=== PATIENT | male | born 1960 | race Caucasian/White ===

== ENCOUNTER 2019-12-13 07:59 | Outpatient (CLI) | payer MEDICARE, SELFPAY ==
--- NOTE | 2019-12-13 08:00 | IR_ITS ---
WS: [id number] MYELOGRAM CERVICAL SPINE AND LUMBAR CLINICAL INFORMATION: Neck pain COMPARISON: None. TECHNIQUE: The procedure, including risks, benefits, and complications, were discussed with the patie nt who agreed to proceed. A timeout was performed to confirm correct patient, procedure, and site. Using sterile technique, the patient was prepped and draped in the usual sterile fashion. After admin istration of local anesthesia using 1% preservative-free lidocaine and using fluoroscopic guidance, a 22-gauge spinal needle was advanced into the subarachnoid space at the left L4-5 level. Subsequently 13 cc of Omnipaque 300 was administered into the thecal sac. The needle was removed and hemostasis w as achieved. Subsequently the table was tilted down and contrast flowed freely into the cervical spin e. Spot fluoroscopic images were obtained. FLUOROSCOPIC TIME: 1.0 minutes. Spot fluoroscopic images demonstrate spinal stimulator. Straightening of the normal cervical lordosis . Mild spondylitic changes with disc space narrowing worse at C5-C6 and C6-C7. Slight retrolisthesis C5 on C6. No instability on flexion-extension. Normal lumbar alignment on the neutral view. No instability on flexion-extension. Disc space heights and vertebral body heights well-preserved. Spinal stimulator leads appear intact. Aortic calcificatio n. Mild chronic anterior wedging at T12. Please see CT myelogram report for additional detail. IR/IR myelogram spine cervic/lumb IMPRESSION: 1. Uncomplicated cervical lumbar myelogram L4-5. 2. No instability on flexion-extension in the cervical or lumbar spine. 3. Mild spondylitic changes cervical spine with disc space narrowing worse at C5-6. Slight retrolisthesis C5 on C6 measuring 2.6 mm. 4. Spinal stimulator pack in the left lower back with visualized stimulator le ads intact.
[2019-12-13] MEDS: iohexol 300 mg/mL 50 mL Btl INTRATHECA (09:29)
--- NOTE | 2019-12-13 10:00 | CT_ITS ---
WS: [id number] CT CERVICAL MYELOGRAM TECHNIQUE: CT of the cervical spine coronal and sagittal reformatted images post intrathecal administ ration of contrast. CLINICAL INFORMATION: Neck pain COMPARISON: CT cervical July 31, 2019 DLP: 1533.[address] scans at [facility] use at least one of these dose optimization techniques: automat ed exposure control; mA and/or kV adjustment per patient size (includes targeted exams where dose is matched to clinical indication); or iterative reconstruction. FINDINGS: Straightening of the normal cervical lordosis with mild spondylitic changes. Disc osteophyte complexe s worse at C4-C5 and C5-C6. C2-C3: Mild right and no significant left foraminal narrowing. Spinal canal is patent. C3-C4:Tiny central disc protrusion. Mild/moderate facet arthropathy. Mild disc bilateral foraminal na rrowing. Mild to moderate facet arthropathy. Spinal canal is patent. C4-C5: Central disc osteophyte protrusion with contact of the cervical cord and mild central canal st enosis. Mild left foraminal narrowing. Mild to moderate facet arthropathy. C5-C6: Disc osteophyte complex with endplate ridging. Mild central canal stenosis. Small central disc osteophyte protrusion. Moderate right and mild left bony foraminal narrowing. Moderate facet arthrop athy. C6-C7: Tiny left pericentral disc osteophyte protrusion. Spinal canal is patent. Mild left and no sig nificant right foraminal narrowing. Mild facet arthropathy. C7-T1: No significant disc bulging. Spinal canal and foramen are patent. Visualized posterior fossa structures: Normal. CT/CT cervical spine w con [id number] IMPRESSION: 1. Straightening of the normal cervical lordosis with mild spondylitic changes . Disc space narrowing worse at C5-C6. 2. Central disc osteophyte protrusion C4-C5 and C5-C6 with mild central canal stenosis and slight contact of the cervical cord. 3. Moderate bony foraminal narrowing worse at right C5-C6 4. Mild to moderate bony foraminal narrowing worse at right C3-C4, left C5-C6, and left C6-C7.
--- NOTE | 2019-12-13 10:30 | CT_ITS ---
WS: [id number] CT LUMBAR SPINE TECHNIQUE: Contrast-enhanced CT of the lumbar spine with coronal and sagittal reformatted images. CLINICAL INFORMATION: low back pain COMPARISON: None. DLP: 2083.[address] scans at [facility] use at least one of these dose optimization techniques: automat ed exposure control; mA and/or kV adjustment per patient size (includes targeted exams where dose is matched to clinical indication); or iterative reconstruction. FINDINGS: Normal lumbar alignment. No acute compression. No high-grade central canal stenosis. Disc space narro wing worse L5-S1. L1-L2: Normal. L2-L3: No significant disc bulging. Spinal canal and foramen are patent. L3-L4: Minimal annular bulging. Small left foraminal protrusion encroaches on the exiting left L3 ner ve root. Mild left foraminal narrowing. Mild facet arthropathy. L4-L5: Mild annular bulging with osteophytic ridging. Mild left and no significant right foraminal na rrowing. Mild facet arthropathy. L5-S1: Small central disc osteophyte complex slightly encroaches on the right S1 nerve root. Spinal c anal is patent. Mild right and no central left foraminal narrowing. Mild facet arthropathy. Adrenal glands are normal. Moderate aortic atheromatous disease. Shotty periaortic and retroperitonea l lymph nodes. CT/CT lumbar spine w con [id number] IMPRESSION: 1. Normal lumbar alignment. No acute compression. No high-grade central canal stenosis. 2. Small right pericentral disc osteophyte complex L5-S1 encroaches on the rig ht S1 nerve root. Mild right L5-S1 foraminal narrowing encroaches on the exitin g right L5 nerve root. 3. Small left foraminal protrusion L3-4 with mild left foraminal narrowing. 4. Mild left L4-5 foraminal narrowing. 5. Moderate aortic atheromatous disease.
== END 2019-12-13 08:00 | disposition home or self-care (01) ==
LOC: RADWPI 08:04
PROVIDERS: Family Provider Family Medicine; PCP Family Medicine; Visit Provider Licensed Practical Nurse
DX: M54.2 Cervicalgia (principal); M25.78 Osteophyte, vertebrae; M51.26 Other intervertebral disc displacement, lumbar region; I70.0 Atherosclerosis of aorta
CPT/HCPCS: 62305; 72040; 72120; 72126; 72132; J2001; Q9967

== ENCOUNTER 2020-01-11 09:29 | Day surgery (SDC) | payer MEDICARE, SELFPAY ==
[2020-01-10 13:14] VITALS: BMI 25.7
[2020-01-11] VITALS (11 sets, daily range): BP systolic 141–166; BP diastolic 54–90; PULSE 47–68; RESP 16–20; TEMP 36.3–37.2; O2SAT 96–100
--- NOTE | 2020-01-11 09:53 | W.PM.OPSUD ---
Surgery/Procedure H&P Update DATE OF PROCEDURE: January 11, 2020 DATE H&P PERFORMED: 12/29/19 H&P UPDATE INFORMATION: I have reviewed H&P completed within last 30 days, H&P to be scanned into chart and H&P is in [facility] on date indicated PREOP DIAGNOSIS: Intervertebral disc disorder with radiculopathy, lumbar region PRIMARY INDICATION FOR PROCEDURE: Pain PLANNED PROCEDURE: Operation Date: 01/11/20 10:50 Proposed Procedures Replacement of subcutaneous spinal cord stimulation pulse generator.
--- NOTE | 2020-01-11 10:04 | ANES.PREANE2 ---
Pre-Anesthetic Assessment Pre-Anesthetic Assessment: Height/Weight: Height 1.88 m Weight 90.718 kg Temp Pulse Resp BP Pulse Ox 99.0 F 68 18 142/85 98 01/11/20 09:42 01/11/20 09:42 01/11/20 09:42 01/11/20 09:42 01/11/20 09:42 Preop Diagnosis: Intervertebral disc disorder with radiculopathy, lumbar region Proposed Procedure: Operation Date: 01/11/20 10:50 Proposed Procedures p Dorsal Column Stimulator Revision/[id number] M51.16 generator replacement(Not Applicable) - Matteo Figueroa MD Last intake: Intake Last Liquid Date 01/11/20 Last Liquid Time 08:00 Last Solid Date 01/10/20 Last Solid Time 22:00 Social: Social History: Tobacco and No alcohol Exam: Pre-Anes Outpt Exam: alert, oriented x 3, clear to auscultation bilaterally and regular rate & rhythm Airway: Submandibular: WNL Cervical ROM: WNL MP: 2 Dentition: Other (teeth ok) History/ROS: No significant history except as noted Pulmonary: Pulmonary: None reported CV/HEM: CV/HEM: None reported : : None reported Hepatic: Hepatic: None reported GI: GI: None reported Metabolic: Metabolic: None reported Musc/skel: Musc/skel: OA/DJD Neuropsych: Neuropsych: Neuropathy Anesthetic Plan: ASA status: 3 Anesthesia: Anesthesia Evaluation, General and MAC Risk of > 500 ml blood loss (7ml/kg in children): No PFSH Anesthesia PFSH: Medical History Cervical disc disorder with myelopathy of mid-cervical region Intervertebral disc disorders with radiculopathy, 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 Yana Keene pain management. Thoracic spinal cord stimulator placement (08/13/2009). Family History Father Cancer Mother Heart disease Hypertension Social History Smoking and tobacco status: current every day smoker Alcohol intake: never Household members: spouse Marital status: Current occupational status: retired History of recent travel: No Data Anesthesia Cardiac Studies: No Data to Display
[2020-01-11] MEDS: sodium chloride 0.9% 1,000 ML 30 ML IV (10:06)
[2020-01-11] MEDS: vancomycin 1,000 MG in sodium chloride 0.9% 250 ML 250 MG IV (10:07)
--- NOTE | 2020-01-11 10:29 | P.OP_ITS ---
Brief Operative Note: Date of procedure: 01/11/20 Pre-op diagnosis: Intervertebral disc disorder with radiculopathy Post-op diagnosis: same Procedure Done: Replacement of subcutaneous programmable spinal cord stimulation pulse generator. Surgeon: Matteo Figueroa Estimated blood loss (mL): 5 Complications: None. Post-op Plan: PACU, then Home per Ambulatory Surgery protocol. Condition: stable Disposition: PACU Coding Level of Care Code Acute Spring Former Machine for Rose Cano
--- NOTE | 2020-01-11 11:13 | SUR.OPER ---
Family Notified Of Patient's Status Via Phone.
--- NOTE | 2020-01-11 18:30 | P.OP_ITS ---
Operative Report Date of procedure: January 11, 2020 Pre-op Diagnosis: Intervertebral disc disorder with radiculopathy, lumbar region Pre-op Diagnosis: Neurostimulator failure. Post-op diagnosis: same Procedure Done: Replacement of subcutaneous programmable pulse generator with connection to intraspinal, epidural paddle electrode arrays. Implants: [employer] WaveWriter pulse generator. TapSurge Precision M8, 15 cm adapters. Specimens removed/disposition: Medtronic RestoreUltra pulse generator Pathology: other (Explanted pulse generator for gross exam) Surgeon: Matteo Figueroa Anesthesia: General Estimated blood loss (mL): 5 IV fluids (mL): 800 Complications: None. Condition: stable Disposition: PACU Brief History: Patient is a 59-year-old male with a history of multiple prior lumbar and cervical pain clinic injections in [place], and more recently at [facility] in [place]. He had a percutaneous thoracic spinal cord stimulation trial with Dr. Bangura in [place] that was followed by placement of a permanent device on August 13, 2009. He reported benefit in management of chronic pain control until battery depletion approximately 2 years ago. His insurance did not cover battery replacement at that time. He currently has insurance that covers spinal cord stimulation. After review of the diagnostic and treatment options with the risks/potential benefits/rationale for each, he requested to proceed with pulse generator replacement and resumption of chronic spinal cord stimulation therapy. Procedure: After routine preoperative evaluation and informed consent were obtained, the patient was taken to the Operating Room and placed under general anesthesia by Anesthesia personnel. He was then positioned prone on the operating table. Chest and pelvic bolsters were positioned to ensure the abdomen was decompressed. All pressure points were padded. The prior vertical left flank pulse generator placement incision was marked with a skin marker. The posterior thorax and flank areas were scrubbed with Betadine and prepped with DuraPrep. Sterile towels and drapes were applied, and an [place] surgical barrier was placed. The proposed flank incision was infiltrated with 1% Xylocaine with epinephrine. A skin incision was made and carried down into the subcutaneous tissues. The previously implanted pulse generator and lead tails were dissected free of soft tissue and delivered from the subcutaneous pocket. The setscrews were released, and the lead tails were delivered from the ports on the pulse generator. The lead tails were advanced into TapSurge M8 adapters. The setscrews were tightened with the torque wrench. The adapter tails were advanced into ports on the [employer] WaveWriter pulse generator. Port plugs were placed within the unused ports on the device. An impedance check demonstrated no faults on one of the percutaneous leads and no active contacts on the other lead. The Adapters, lead tails, and ports were reconnected in various configurations. Findings confirmed the lead as the source of the fault. Prior programming / stimulation settings could not be obtained from the depleted device, and the duration of the faulty lead was unknown. All connection sites were secured with torque wrench tightening of all set screws. The connection sites were manipulated and found to be secure. The left flank subcutaneous pocket was copiously irrigated with antibiotic irrigation. Hemostasis was ensured. The pulse generator was placed within the left flank subcutaneous pocket with excess lead coiled deep/adjacent to the device. The pulse generator was anchored to the superficial fascia with a single Silk suture. The site was again irrigated with antibiotic irrigation. Wound closure was performed in multiple layers with 2-0 Vicryl Plus simple interrupted closure of the dermis. Final skin closure was performed with 3-0 Vicryl Plus in a running subcuticular pattern. Steri-Strips were applied, and a sterile dressing was placed. The patient was then rotated onto the Recovery Room cart in the supine position. He tolerated the procedure well. All sponge, needle and instrument counts were correct at the completion of the procedure.
== END 2020-01-11 13:30 | disposition home or self-care (01) ==
LOC: OR 09:35 → MEDSURG 12:00
PROVIDERS: PCP Family Medicine; Visit Provider Specialist
PROC: (CPT 63688; principal; 2020-01-11 10:50)
DX: M51.16 Intervertebral disc disorders with radiculopathy, lumbar region (principal); M19.90 Unspecified osteoarthritis, unspecified site; G62.9 Polyneuropathy, unspecified; Z82.49 Family history of ischemic heart disease and other diseases of the circulatory system; F17.210 Nicotine dependence, cigarettes, uncomplicated
CPT/HCPCS: 63685; 12345; 88300; C1820; J0690; J2704; J3010; J3370; J3490; J7030; J7050

== ENCOUNTER 2022-03-20 12:40 | Emergency (ER) | payer MEDICARE, SELFPAY ==
[2022-03-20 12:49] VITALS: BP 185/84; PULSE 56; RESP 16; TEMP 36.8; O2SAT 96
--- NOTE | 2022-03-20 13:31 | W.ED.BACK ---
HPI - Back Pain/Injury General: Chief Complaint: Back Pain/Injury Stated Complaint: back pain, cant walk Time Seen by Provider: 03/20/22 13:11 Source: patient Mode of arrival: ambulatory Limitations: no limitations History of Present Illness: 61-year-old male presents to the ER today for low back pain x4 days. Patient reports a history of chronic low back pain. He last had a nerve stimulator battery replacement in 2019 and followed up with some injections. Patient reports he stopped seeing pain management because he felt the injections were no longer helping about a year ago. Patient reports he was doing very well and Wednesday he was walking to the car when his legs gave out on him. He reports since then the pain is continued to worsen his low back. Patient reports radiating pain down both legs which has been a common thing for him however this time it is a little bit worse on the left than the right. Patient denies any new numbness or tingling. He reports no loss of bowel or bladder control. Patient reports he does not have anything at home to take for pain. Patient reports in the past he was on morphine and that is why stopped seeing pain management because he wanted to get off the morphine. Patient reports he called his PCP this morning to try to get a referral to neurosurgery however they report they had not seen him in 1 year so he would require to be seen therefore they recommended he come to the ER. Review of Systems General: Reports: 10 or more systems reviewed and unremarkable except in HPI and below PFS ED PFSH: Medical History (Updated 03/20/22 @ 14:36 by Sarah Beth Campo PA-C) Cervical disc disorder with myelopathy of mid-cervical region Intervertebral disc disorders with radiculopathy, 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 Yana Keene pain management. Thoracic spinal cord stimulator placement (08/13/2009). Family History Father Cancer Mother Heart disease Hypertension Social History Smoking and tobacco status: current every day smoker Alcohol intake: never Household members: spouse Marital status: Current occupational status: retired History of recent travel: No Physical Exam Const: COMMON NORMALS: no acute distress, average body habitus, patient oriented x3, no limitations, healthy appearing, alert and well nourished Neck/C-Spine: COMMON NORMALS: full ROM Resp: COMMON NORMALS: normal respiratory effort and No retractions EFFORT & INSPECTION: Yes able to speak in complete sentences Cardio: COMMON NORMALS: regular rate, regular rhythm and No murmurs present (Cardio) RATE: regular rate RHYTHM: regular rhythm GI: COMMON NORMALS: Normal to inspection, nondistended, normoactive bowel sounds present, Soft to palpation and non-tender PALPATION: Yes Soft to palpation Back/Pelvis: LUMBAR SPINE/LOWER BACK: Yes ROM limited, Yes paraspinal muscle tenderness and No paraspinal muscle spasm OTHER: SI joint tenderness worse on the L than the R; tenderness of paraspinal muscles bilaterally of the low back Extremity: COMMON NORMALS: full ROM and no pedal edema Neuro: COMMON NORMALS: patient oriented x3 SENSORIUM/ORIENTATION: Yes alert Psych: COMMON NORMALS: mental status grossly normal, Normal thought process present and cooperative THOUGHT PROCESS: Normal thought process present Skin: COMMON NORMALS: no rashes or lesions noted and no wounds GENERAL SKIN EXAM: no rashes or lesions noted Course ED course: 61-year-old male presents to the ER today for worsening chronic low back pain. Patient reports he has been doing well for the last year or so until Wednesday when he was walking the car and had sudden pain. Patient reports since then the pain has continued. Patient reports he called his primary care this morning to get a referral to a neurosurgeon he was told that he had not been seen for 1 year so he could not have a referral. Patient was told to come to the ER. Patient reports he does not have anything at home for pain at this time. In the past patient saw a pain management doctor and was on morphine however he wanted to get off the morphine and he stopped seeing pain management. Patient reports he did not take anything today for pain. He denies any new numbness or tingling. Denies any loss of bowel or bladder habits. Denies any neurological deficits. I discussed with patient that we cannot do advanced imaging through the ER at this time as he did not have any emergent indications. We will get an x-ray of the L-spine so that he can follow-up for possible MRI or what ever is suggested by the neurosurgeon. Vital Signs: Vital signs: Vital Signs Temperature 98.3 F 03/20/22 12:49 Pulse Rate 56 L 03/20/22 12:49 Respiratory Rate 16 03/20/22 12:49 Blood Pressure 185/84 03/20/22 12:49 Pulse Oximetry 96 03/20/22 12:49 Oxygen Delivery Me thod 03/20/22 12:49 MDM - Back Pain/Injury Medical Decision Making 61-year-old male presents to the ER today for worsening chronic low back pain. Patient reports he has been doing well for the last year or so until Wednesday when he was walking the car and had sudden pain. Patient reports since then the pain has continued. Patient reports he called his primary care this morning to get a referral to a neurosurgeon he was told that he had not been seen for 1 year so he could not have a referral. Patient was told to come to the ER. Patient reports he does not have anything at home for pain at this time. In the past patient saw a pain management doctor and was on morphine however he wanted to get off the morphine and he stopped seeing pain management. Patient reports he did not take anything today for pain. He denies any new numbness or tingling. Denies any loss of bowel or bladder habits. Denies any neurological deficits. I discussed with patient that we cannot do advanced imaging through the ER at this time as he did not have any emergent indications. We will get an x-ray of the L-spine so that he can follow-up for possible MRI or what ever is suggested by the neurosurgeon. I will place a referral for neurosurgery through the ER. X-ray was negative for any acute changes. I discussed findings with patient. Recommended we try a Medrol Dosepak and muscle relaxer. Patient also given meloxicam. Do not take ibuprofen with the meloxicam. Patient was given a Toradol shot in the ER today due to pain. Patient should follow-up with neurosurgeon or PCP as discussed. Return to the ER with any new or worsening symptoms including changes in neurological status. Patient verbalized understanding and was in agreement with the treatment plan. Labs Radiology Impressions Lumbar Spine X-Ray 03/20/22 13:40 IMPRESSION: Moderate changes of degenerative spondylosis with no acute abnormality. Critical Care Time Critical Care Time: Critical Care Time: No Discharge Plan Discharge Patient Disposition: Home Clinical Impression: Acute exacerbation of chronic low back pain Condition: Stable Prescriptions: New methocarbamol 750 mg tablet 750 mg PO Q8H Qty: 21 0RF Medrol (Vignesh) 4 mg tablets,dose pack See Rx Instructions .ROUTE .COMPLEX Qty: 21 0RF Rx Instructions: orally per package directions meloxicam 15 mg tablet 15 mg PO DAILY Qty: 14 0RF No Action morphine 15 mg tablet 15 mg PO TID PRN (Reason: pain) acetaminophen 500 mg capsule 500 mg PO BID PRN (Reason: Pain) Discharge Orders: Discharge ED (Routine); Ordered 03/20/22 Ordered By: Sarah Beth Campo Referrals: Nataly Real MD [Primary Care Provider] - Discharge Diet: Usual diet Discharge Activity: Increase activity as tolerated Patient Instructions: Opioid Safety, Pain Management Activity Restrictions/Additional Instructions: Take medications as prescribed. Do not take ibuprofen when taking meloxicam. Recommend warm, moist heat alternated with ice. Topical muscle rub recommended. A referral has been placed to case management for neurosurgery referral. Recommend follow-up with PCP in 10 to 14 days if no improvement. Return to the ER with any new or worsening symptoms. Coding Level of Care Code ED Corporate Development Analyst for Rose Fwelba Exam Comprehensive
--- NOTE | 2022-03-20 13:40 | XR_ITS ---
WS: [id number] XR lumbar spine 2-3V* [id number] REASON FOR EXAM: worsening low back pain FINDINGS: Rotatory scoliosis convex left. Mild straightening of the normal lordosis of the lumbar spine on the lateral view. No significant vertebral body abnormality. Mild narrowing of the L5-S1 disc space. No significant listhesis. Mild degenerative change in the L5-S1 facet joints. Dorsal column stimulator battery pack present on the left. Leads extending cephalically over the lowe r thoracic spine. XR/XR lumbar spine 2-3V* [id number] IMPRESSION: Moderate changes of degenerative spondylosis with no acute abnormality.
[2022-03-20] MEDS: ketorolac 60 mg/2 mL INJ IM (14:46)
--- NOTE | 2022-03-23 14:28 | DCPLANNER ---
manager copy had message to schedule a follow up appointment for patient with neurosurgery. manager copy spoke with patients , patient is being seen by chelsea Royal at [facility]. Patient is going to this visit, will ask physician if they can treat patient here or if patient will need to see neurosurgery. Patients stated that if they would need to the referral to neurosurgery, that she would call correctional case manager.
== END 2022-03-20 14:55 | disposition home or self-care (01) ==
PROVIDERS: Emergency Provider Physician Assistant; PCP Family Medicine
DX: M54.50 Low back pain, unspecified (principal); G89.29 Other chronic pain
CPT/HCPCS: 72100; 96372; 99284; J1885

== ENCOUNTER 2022-03-21 20:38 | Emergency (ER) | payer MEDICARE, SELFPAY ==
[2022-03-21 20:52] VITALS: BP 164/80; PULSE 60; RESP 16; TEMP 37.2; O2SAT 98
--- NOTE | 2022-03-21 23:19 | W.ED.BACK ---
HPI - Back Pain/Injury General: Chief Complaint: Back Pain/Injury Stated Complaint: back pain Time Seen by Provider: 03/21/22 23:06 History of Present Illness: 61-year-old male patient comes in today for complaints of persistent low back pain. Patient was seen and treated yesterday with a steroid taper, meloxicam, and methocarbamol. Patient reports minimal relief but difficulty getting up out of bed due to pain. Patient denies any loss of bowel or bladder control. Patient appears in no acute distress. Patient appears in mild to moderate pain at rest. 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 Yana Keene pain management. Thoracic spinal cord stimulator placement (08/13/2009). Family History Father Cancer Mother Heart disease Hypertension Social History Smoking and tobacco status: current every day smoker Alcohol intake: never Household members: spouse Marital status: Current occupational status: retired History of recent travel: No Physical Exam Const: COMMON NORMALS: alert HENMT: COMMON NORMALS: normocephalic HEAD & SCALP: normocephalic Neck/C-Spine: COMMON NORMALS: full ROM Resp: COMMON NORMALS: normal respiratory effort and clear to auscultation bilaterally AUSCULTATION: clear to auscultation bilaterally Cardio: COMMON NORMALS: regular rate and regular rhythm RATE: regular rate RHYTHM: regular rhythm Back/Pelvis: LUMBAR SPINE/LOWER BACK: Yes paraspinal muscle tenderness Extremity: NARRATIVE EXTREMITY EXAM: Positive leg lift test. Bilaterally. Neuro: SENSORIUM/ORIENTATION: Yes alert Skin: COMMON NORMALS: no rashes or lesions noted GENERAL SKIN EXAM: no rashes or lesions noted Course Vital Signs: Vital signs: Vital Signs Temperature 99.0 F 03/21/22 20:52 Pulse Rate 60 03/21/22 20:52 Respiratory Rate 18 03/21/22 23:38 Blood Pressure 164/80 03/21/22 20:52 Pulse Oximetry 98 03/21/22 20:52 Oxygen Delivery Me thod 03/21/22 20:52 MDM - Back Pain/Injury Medical Decision Making 61-year-old male patient comes in today with low back pain. Patient reports that on Wednesday started having increasing back pain that has debilitated him since then. Patient was seen on Wednesday and started on steroid taper, meloxicam, and some methocarbamol. Patient denies loss of bowel or bladder control or fever. On exam abdomen soft nontender. Skin is warm and dry. Patient has some muscle tenderness bilateral lower back. Patient does have positive leg lift test. Differential diagnosis includes intervertebral disc disease, lumbar radiculopathy, facet arthropathy. Patient was medicated with Toradol and morphine and was able to get up and ambulate with minimal assist. Patient be continued on hydrocodone and along with other medications as prescribed. Recommended follow-up with primary care or specialist. Patient reported understanding agreed to plan. Discharge Plan Discharge Patient Disposition: Home Clinical Impression: Acute exacerbation of chronic low back pain Condition: Stable Prescriptions: New hydrocodone-acetaminophen 5-325 mg tablet 1 tab PO Q6H PRN (Reason: pain (scale score 7-10)) Qty: 14 0RF No Action morphine 15 mg tablet 15 mg PO TID PRN (Reason: pain) acetaminophen 500 mg capsule 500 mg PO BID PRN (Reason: Pain) methocarbamol 750 mg tablet 750 mg PO Q8H Qty: 21 0RF Medrol (Vignesh) 4 mg tablets,dose pack See Rx Instructions .ROUTE .COMPLEX Qty: 21 0RF Rx Instructions: orally per package directions meloxicam 15 mg tablet 15 mg PO DAILY Qty: 14 0RF Discharge Orders: Discharge ED (Routine); Ordered 03/22/22 Ordered By: Enrique Brito Referrals: Nataly Real MD [Primary Care Provider] - Patient Instructions: Back Pain (ED), Opioid Safety, Pain Management Activity Restrictions/Additional Instructions: Try to maintain activity as much as possible. Use a walker to help with ambulation. Follow-up with primary care for further instruction. Case management will contact you regarding referral to orthopedic relocation services specialist. Coding Level of Care Code ED Day Camp Unit Leader for Chg Fwd Exam Detailed
[2022-03-21 23:38] VITALS: RESP 18
[2022-03-21] MEDS: morphine 4 mg/mL SDV 1 mL 6 MG IM (23:38)
[2022-03-21] MEDS: ketorolac 30 mg/mL INJ IM (23:38)
[2022-03-22] MEDS: HYDROcodone-acetaminophen 7.5-325 mg Tablet 2 TAB PO (00:34)
[2022-03-22 00:37] VITALS: BP 148/88; PULSE 60; RESP 17; O2SAT 98
--- NOTE | 2022-03-23 12:34 | DCPLANNER ---
Addendum entered by Elina Barksdale 04/01/22 13:58: Patient has a follow up appointment scheduled with ortho - patient did attend appointment. Addendum entered by Elina Barksdale 03/23/22 14:59: Patient has a follow up appointment scheduled for Thursday, March 31, 2022 at 3:00 with CHLOÉ Morales at ortho. Clinic will call patient with appointment information. Original Note: talent acquisition project manager had message to schedule a follow up appointment for patient with ortho. talent acquisition project manager sent patients information to the front office staff at ortho. Patients information will be printed and reviewed. Clinic will call patient with appointment information.
== END 2022-03-22 00:38 | disposition home or self-care (01) ==
PROVIDERS: Emergency Provider Nurse Practitioner Family; PCP Family Medicine
DX: M54.50 Low back pain, unspecified (principal); G89.29 Other chronic pain
CPT/HCPCS: 96372; 99284; J1885; J2270

== ENCOUNTER → 2022-03-31 14:45 | Outpatient (BNVA) | payer MEDICARE, SELFPAY | PROVIDERS: PCP Family Medicine; Visit Provider Physician Assistant | DX: M47.816 Spondylosis without myelopathy or radiculopathy, lumbar region (principal); M51.16 Intervertebral disc disorders with radiculopathy, lumbar region | CPT/HCPCS: 72070; 72110; 99203 ==

== ENCOUNTER → 2022-04-21 09:53 | Outpatient (BNVA) | payer MEDICARE, SELFPAY | PROVIDERS: PCP Family Medicine; Visit Provider Anesthesiology Pain Medicine | DX: M51.16 Intervertebral disc disorders with radiculopathy, lumbar region (principal); M47.816 Spondylosis without myelopathy or radiculopathy, lumbar region; M50.020 Cervical disc disorder with myelopathy, mid-cervical region, unspecified level; M48.02 Spinal stenosis, cervical region; T85.192A Other mechanical complication of implanted electronic neurostimulator of spinal cord electrode (lead), initial encounter; M79.604 Pain in right leg; M79.605 Pain in left leg; F17.200 Nicotine dependence, unspecified, uncomplicated | CPT/HCPCS: 99205 ==

== ENCOUNTER → 2022-05-12 13:54 | Outpatient (BNVA) | payer MEDICARE, SELFPAY | PROVIDERS: PCP Family Medicine; Visit Provider Physician Assistant | DX: T85.192A Other mechanical complication of implanted electronic neurostimulator of spinal cord electrode (lead), initial encounter (principal); M54.9 Dorsalgia, unspecified; L98.9 Disorder of the skin and subcutaneous tissue, unspecified; Z96.82 Presence of neurostimulator | CPT/HCPCS: 99213; 99214 ==

== ENCOUNTER 2022-07-10 07:34 | Day surgery (SDC) | payer MEDICARE, SELFPAY ==
[2022-07-07 08:42] VITALS: BMI 28.0
--- NOTE | 2022-07-07 14:18 | ANES.PREANE2 ---
Pre-Anesthetic Assessment Height/Weight: Height 1.88 m Weight 98.883 kg Preop Diagnosis: Intervertebral disc disorder with radiculopathy, lumbar region Operation Date: 07/10/22 09:15 Proposed Procedures p Lumbar Laminectomy FOR IMPANTATION OF NEUROSTIMULTOR 16157/29234/M54.9/G89.29(Bilateral) - Peter Storey DO s Nerve Stimulator Insertion(Not Applicable) - Peter Storey DO Familial anesthetic complications: none Was Beta Claudette taken within 24 hours: N/A Was Clonidine taken within 24 hours: N/A Social Tobacco and No alcohol Exam alert, oriented x 3 and regular rate & rhythm Airway Submandibular: within normal limits Cervical ROM: within normal limits Mallampati: Class II Dentition: chipped Comments: Comments: Poor dentition Pulmonary Chronic Obstructive Pulmonary Disease Musc/skel Lower Back Pain and Osteoarthritis/DJD Spinal cord stim Anesthetic Plan ASA status: 3 Anesthesia: General Medications/Allergies Home Medications Medication Instructions Recorded Confirmed Last Taken Type acetaminophen 500 mg capsule 500 mg PO BID PRN Pain 10/13/19 07/07/22 01/10/20 History Allergies Allergy/AdvReac Type Severity Reaction Status Date / Time No Known Allergies Allergy Verified 05/12/22 13:59 [facility] Anesthesia Medical History (Updated 05/12/22 @ 17:08 by Ra Morales PA-C) Cervical disc disorder with myelopathy of mid-cervical region Intervertebral disc disorders with radiculopathy, 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 Yana Keene pain management. Thoracic spinal cord stimulator placement (08/13/2009). Family History Father Cancer Mother Heart disease Hypertension Social History Smoking and tobacco status: current every day smoker Alcohol intake: never Household members: spouse Marital status: Current occupational status: retired History of recent travel: No Data Anesthesia Cardiac Studies: No Data to Display
[2022-07-10] VITALS (8 sets, daily range): BP systolic 144–164; BP diastolic 68–100; PULSE 57–74; RESP 16–18; TEMP 36.1–36.9; O2SAT 97–100
--- NOTE | 2022-07-10 | XR_ITS ---
WS: [id number] Lumbar spine, C-arm fluoroscopy, 07/10/2022 Clinical Data: removal of spinal cord stimulator Comparison: None. Findings: Dr. Storey removed the epidural stimulator XR/XR lumbar spine 1V 43115 Impression: Removal of epidural stimulator.
[2022-07-10] MEDS: sodium chloride 0.9% 1,000 ML 30 ML IV (08:06)
--- NOTE | 2022-07-10 08:40 | PM.HP ---
Providers/Chief Complaint Primary Care Provider: Nataly Real MD Chief Complaint: LAMINECTOMY FOR IMPLATATION OF NEUROSTIMULOR 80362 History of Present Illness Meek Sommers is a 62 year old male ?lower back pain with bilateral lower extremity pain and weakness. The patient states he has a pain stimulator, he states it isn't working. He states his pain is a 5/10. He states the pain radiates down both legs, more dominate on the right. He states he seen Dr. Puckett for consultation. He didn't get an injection.? He is here today to discuss removing the spinal cord stimulator in his back which is not functioning. Review of Systems General: Reports: 10 or more systems reviewed and unremarkable except in HPI and below Const: Denies: fever(s) or chills Card: Denies: chest pain or dyspnea on exertion Resp: Denies: dyspnea or productive cough GI: Denies: abdominal pain, nausea or vomiting Musc: Reports: joint pain, joint swelling and limited range of motion Skin/Breast: Denies: changes in skin color or dry skin Neuro: Denies: numbness in extremities or weakness in extremities Psych: Denies: anxiety Maxx/Lymph: Denies: easy bruising or easy bleeding Medications/Allergies Home Medications Medication Instructions Recorded Confirmed Last Taken Type acetaminophen 500 mg capsule 500 mg PO BID PRN Pain 10/13/19 07/10/22 07/09/22 16:00 History Allergies Allergy/AdvReac Type Severity Reaction Status Date / Time No Known Allergies Allergy Verified 05/12/22 13:59 PFSH Acute PFSH: Medical History (Updated 05/12/22 @ 17:08 by Ra Morales PA-C) Cervical disc disorder with myelopathy of mid-cervical region Intervertebral disc disorders with radiculopathy, 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 Yana Keene pain management. Thoracic spinal cord stimulator placement (08/13/2009). Family History Father Cancer Mother Heart disease Hypertension Social History Smoking and tobacco status: current every day smoker Alcohol intake: never Household members: spouse Marital status: Current occupational status: retired History of recent travel: No Vitals/I&O/Wt Last Vital Signs Temp 98.4 F 07/10/22 08:02 Pulse 60 07/10/22 08:02 Resp 18 07/10/22 08:02 BP 144/100 07/10/22 08:02 Pulse Ox 97 07/10/22 08:02 O2 Del Method 07/10/22 08:02 Physical Exam Narrative: Narrative:?? EXAM NARRATIVE: Gio redd presents val rt and oriented x3 with a good gener al appearance norm al mood and affect .? Normal coordina tion normal stabil ity.? No tendernes s around the incis ional site with th e incision over th e battery pack to be completely heal ed in the left fla nk.? No signs of e rythema or drainag e.? No signs of in fection.? Patient denies any fevers or chills.? 5/5 mo tor strength both lower extremities with negative stra ight leg raise citlalli aterally.? Calves are supple no medi al thigh tendernes s.? Pulses are 2+ at the dorsalis pe dis and posterior tibial region.? Go od capillary refil l throughout jud l sensation light touch both lower e xtremities.? He do es have a blackene d skin lesion in t he mid thoracic re gion that he state s he has had for a long time.? Appea rs to be the size of a nickel. HENMT:?? COMMON NORMALS: no rmocephalic and at raumatic? HEAD & S CALP: normocephali c and atraumatic Resp:?? COMMON NORMALS: no rmal respiratory e ffort Cardio:?? COMMON NORMALS: re gular rate and reg ular rhythm? RATE: regular rate? RHY THM: regular rhyth m GI:?? COMMON NORMALS: So ft to palpation? P ALPATION: Yes Soft to palpation :?? COMMON NORMALS: Ye s no CVA tendernes s? BLADDER/KIDNEY EXAM: Yes no CVA t enderness Back/Pelvis:?? COMMON NORMALS: no CVA tenderness Psych:?? COMMON NORMALS: me ntal status grossl y normal and coope rative A&P Assessment and plan (1) Failed spinal cord stimulator: removal of stimulator and battery Attestations Medical Necessity Statement*: failed conservative tx Coding Level of Care Code Acute Commission Broker for Chg Fwd Diagnoses Failed spinal cord stimulator T85.192A
[2022-07-10] MEDS: ceFAZolin 2,000 MG in sodium chloride 0.9% (plus) 50 ML 100 MG IV (09:28)
--- NOTE | 2022-07-10 10:08 | P.ANESUD_ITS ---
Pre-Anesthetic Update Pre-Anesthetic Assessment: Date of Surgery/Procedure: 07/10/22 Preop Sharon gnosis: Failed spinal cord stimulator, chronic back pain Proposed Procedure: Operation Date: 07/10/22 09:20 Proposed Procedures p Lumbar Laminectomy FOR IMPANTATION OF NEUROSTIMULTOR 55812/98252/M54.9/G89.29(Bilateral) - Peter H Cordelia, DO s Stimulator Removal(Bilateral) - Peter H Cordelia, DO Any changes to Pre-Anesthetic Assessment?: No Last Intake: Intake Last Liquid Date 07/09/22 Last Liquid Time 21:00 Last Solid Date 07/09/22 Last Solid Time 18:00 Vitals: Temperature 98.4 F 07/10/22 08:02 Temperature Source Temporal Artery S can 07/10/22 08:02 Pulse Rate 60 07/10/22 08:02 Respiratory Rate 18 07/10/22 08:02 Blood Pressure 144/100 07/10/22 08:02 Blood Pressure Floridalma n 114 07/10/22 08:02 Pulse Oximetry 97 07/10/22 08:02 Oxygen Delivery Me thod 07/10/22 08:02 Exam: Pre-Anes Outpt Exam: alert, oriented x 3, clear to auscultation bilaterally and regular rate & rhythm Cardiac Studies: No Data to Display
--- NOTE | 2022-07-10 10:52 | PM.OP ---
Operative Report Date of procedure: July 10, 2022 Pre-op diagnosis: Preop Diagnosis Failed spinal cord stimulator, chronic back pain Post-op diagnosis: same Procedure done: 1. Removal of spinal cord stimulator 2. Removal of battery for spinal cord stimulator Surgeon: Peter Storey Estimated blood loss (mL): 5 Procedure: 1. Removal of spinal cord stimulator 2. Removal of battery for spinal cord stimulator Please go to our suite after undergoing anesthesia was placed on the operating table in the prone position. All areas impingement well-padded. Patient had a midline incision. Patient was prepped and draped in normal sterile fashion. The skin incision was made using previous incision. The soft tissues were undermined to track to the battery. Once the battery was identified the battery was undermined and removed from the pocket. The wires were then cut. Attention was then brought to removing the spinal cord stimulator. The wires were sutured in to the soft tissues. These were traced along the wires to find using a Bovie. And then the location of the sutures were identified and cut. And then the neurostimulator was then slowly pulled from the epidural space. Once the stimulator was removed C-arm was brought in to ensure that all of the wires were removed this was confirmed. Wounds were then irrigated and closed in layered fashion with Vicryl and Monocryl suture. Sterile dressings were applied patient was transferred to the PACU in stable condition.
[2022-07-10] MEDS: HYDROcodone-acetaminophen 5-325 mg Tablet 1 TAB PO (11:42)
--- NOTE | 2022-07-10 11:52 | PC.NURSE ---
Patient left [email or web address] Remote Control Kit and [email or web address] Charging System to be returned to Dr. Storey's office at this time.
--- NOTE | 2022-07-10 14:01 | ANE.PACU2 ---
Inpatient post-anesthesia follow up: Airway intact: Yes Vital signs: Temperature 97.6 F Pulse Rate 57 Respiratory Rate 18 Blood Pressure 164/83 Pulse Oximetry 99 Oxygen Delivery Me thod Room Air Oxygen Flow Rate Fraction of Inspir ed Oxygen Hydration adequate: Yes Nausea and vomiting: No Pain level: 3 Mental status: Baseline
== END 2022-07-10 11:47 | disposition home or self-care (01) ==
PROVIDERS: PCP Family Medicine; Visit Provider Orthopaedic Surgery
PROC: (CPT 63655; 2022-07-10 08:50)
DX: T85.192A Other mechanical complication of implanted electronic neurostimulator of spinal cord electrode (lead), initial encounter (principal); Y83.8 Other surgical procedures as the cause of abnormal reaction of the patient, or of later complication, without mention of misadventure at the time of the procedure; G89.29 Other chronic pain; F17.210 Nicotine dependence, cigarettes, uncomplicated
CPT/HCPCS: 63655; 63685; 72020; 76000; J0690; J2405; J2704; J2710; J3010; J3490; J7030

== ENCOUNTER → 2022-07-20 14:36 | Outpatient (BNVA) | payer MEDICARE, SELFPAY | PROVIDERS: PCP Family Medicine; Referring Provider Physician Assistant; Visit Provider Dermatology | DX: D48.9 Neoplasm of uncertain behavior, unspecified (principal); L57.0 Actinic keratosis; B36.0 Pityriasis versicolor; L81.4 Other melanin hyperpigmentation; D22.9 Melanocytic nevi, unspecified | CPT/HCPCS: 88305 ==

== ENCOUNTER → 2022-07-23 13:01 | Outpatient (BNVA) | payer MEDICARE, SELFPAY | PROVIDERS: PCP Family Medicine; Visit Provider Orthopaedic Surgery | DX: Z47.89 Encounter for other orthopedic aftercare (principal) | CPT/HCPCS: 99024 ==

== ENCOUNTER 2022-08-28 12:54 | Outpatient (CLI) | payer MEDICARE, SELFPAY ==
--- NOTE | 2022-08-28 13:00 | MR_ITS ---
WS: [id number] MRI LUMBAR SPINE NONCONTRAST HISTORY: low back pain, failed spinal cord stimulator COMPARISON: None available. TECHNIQUE: Sagittal and axial multisequence imaging is submitted. Normal lumbar alignment with no compression fractures or marrow edema. Disc spaces and vertebral body heights are well-preserved. Conus terminates normally at L1. L1-L2: Mild asymmetric disc bulging. There is a very tiny RIGHT paracentral disc protrusion. No steno sis. L2-L3: Mild disc bulging with a central disc protrusion. Mild ligamentum flavum hypertrophy. No high- grade stenosis. L3-L4: Small RIGHT paracentral disc protrusion with mild effacement of ventral CSF. Very minimal cont act on the RIGHT L4 traversing nerve root. Mild RIGHT subarticular recess encroachment. No high-grade stenosis. L4-L5: Mild disc bulging with no central or foraminal stenosis. Mild bilateral facet joint arthritis. L5-S1: Mild osteophytic ridging and disc bulging. Central disc protrusion with osteophyte. Mild RIGHT foraminal stenosis due to facet and ligamentum flavum hypertrophy. Atherosclerosis abdominal aorta. No aneurysm. MR/MR lumbar spine wo con* [id number] IMPRESSION: 1. No high-grade central stenosis. 2. Moderate RIGHT foraminal stenosis at L5-S1. 3. Small central disc osteophyte at L5-S1. 4. Small RIGHT paracentral disc protrusion at L3-4. Very minimal contact witho ut displacement on the L4 traversing nerve root. Mild RIGHT subarticular recess stenosis.
== END 2022-08-28 12:55 | disposition home or self-care (01) ==
PROVIDERS: PCP Family Medicine; Visit Provider Orthopaedic Surgery
DX: M48.07 Spinal stenosis, lumbosacral region (principal); M25.78 Osteophyte, vertebrae; M51.26 Other intervertebral disc displacement, lumbar region
CPT/HCPCS: 72148

== ENCOUNTER → 2022-09-01 10:58 | Outpatient (BNVA) | payer MEDICARE, SELFPAY | PROVIDERS: PCP Family Medicine; Visit Provider Orthopaedic Surgery | DX: M48.062 Spinal stenosis, lumbar region with neurogenic claudication (principal) | CPT/HCPCS: 99213 ==

== ENCOUNTER 2022-09-18 05:57 | Day surgery (SDC) | payer MEDICARE, SELFPAY ==
[2022-09-16 12:01] VITALS: BMI 28.0
--- NOTE | 2022-09-16 13:46 | ANES.PREANE2 ---
Pre-Anesthetic Assessment Height/Weight: Height 1.88 m Weight 98.883 kg Preop Diagnosis: Lumbar stenosis with neurogenic claudication Operation Date: 09/18/22 07:00 Proposed Procedures p Lumbar Spine Decompression:RT side L5/S1 Lumbar decompression, 38398,M48.062(Right) - Peter Storey DO Familial anesthetic complications: none Was Beta Claudette taken within 24 hours: N/A Was Clonidine taken within 24 hours: N/A Social Tobacco and No alcohol Exam alert, oriented x 3 and regular rate & rhythm Airway Submandibular: within normal limits Cervical ROM: within normal limits Mallampati: Class II Dentition: chipped Pulmonary Chronic Obstructive Pulmonary Disease Musc/skel Lower Back Pain and Osteoarthritis/DJD Anesthetic Plan ASA status: 3 Anesthesia: General Medications/Allergies Home Medications Medication Instructions Recorded Confirmed Last Taken Type acetaminophen 500 mg capsule 500 mg PO BID PRN Pain 10/13/19 09/16/22 09/15/22 History Allergies Allergy/AdvReac Type Severity Reaction Status Date / Time No Known Allergies Allergy Verified 09/01/22 11:14 [facility] Anesthesia Medical History (Updated 09/01/22 @ 11:28 by Peter Storey DO) Cervical disc disorder with myelopathy of mid-cervical region Intervertebral disc disorders with radiculopathy, 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 Yana Keene pain management. Thoracic spinal cord stimulator placement (08/13/2009). Family History Father Cancer Mother Heart disease Hypertension Social History Smoking and tobacco status: current every day smoker Alcohol intake: never Household members: spouse Marital status: Current occupational status: retired Data Anesthesia Cardiac Studies: No Data to Display
[2022-09-18] VITALS (10 sets, daily range): BP systolic 133–175; BP diastolic 61–92; PULSE 59–100; RESP 16–18; TEMP 36.1–36.6; O2SAT 97–100
[2022-09-18] MEDS: sodium chloride 0.9% 1,000 ML 30 ML IV (06:18)
--- NOTE | 2022-09-18 06:18 | W.PM.OPSUD ---
Surgery/Procedure H&P Update DATE OF PROCEDURE: September 18, 2022 DATE H&P PERFORMED: 09/01/22 H&P UPDATE INFORMATION: I have reviewed H&P completed within last 30 days, I have examined patient prior to procedure and No changes to prior documentation PREOP DIAGNOSIS: Lumbar stenosis with neurogenic claudication PLANNED PROCEDURE: Operation Date: 09/18/22 07:00 Proposed Procedures p Lumbar Spine Decompression:RT side L5/S1 Lumbar decompression, 58160,M48.062(Right) - Peter Storey DO
[2022-09-18] MEDS: ceFAZolin 2,000 MG in sodium chloride 0.9% (plus) 50 ML 100 MG IV (07:00)
[2022-09-18] MEDS: lidocaine-epi 1% 20 mL INJ INJECTION (07:27)
--- NOTE | 2022-09-18 07:59 | PM.OP ---
Operative Report Date of procedure: September 18, 2022 Pre-op diagnosis: Preop Diagnosis Lumbar stenosis with neurogenic claudication Post-op diagnosis: same Procedure done: L5-S1 laminectomy with partial facetectomy Surgeon: Peter Storey Lamp Cleaner Street Light: Ra Morales Lamp Cleaner Street Light: The surgical instrument technician, Ra Morales, KEERTHI was needed for his expertise under the microscope. He was important and necessary throughout the procedure to complete in a safe and timely manner. He assisted with patient positioning prepping and draping tissue retraction suctioning of the operative field protection of the dural sac and tissue closure Estimated blood loss (mL): 5 Procedure: L5-S1 laminectomy with partial facetectomy Patient is brought to the operative suite. After undergoing anesthesia they are placed in the prone position. All areas of impingement are well padded. Patient is then prepped and draped in the normal sterile fashion. A skin incision is made over the L5/S1 level. This is confirmed under c-arm guidance. A series of dilators are passed and the tubular retractor is docked on the L5 lamina. A bovie is used to clear the soft tissue off the lamina and the L 5/S1 facet joint. A high speed paul is then used to perform the laminectomy and take down the medial aspect of the L 5/S1 facet joint. A kerrison rongeure was then used to take down the remaining lamina and smooth the edge of the laminectomy up to the point where the ligamentum flavum attaches. Attention was then brought to the medial aspect of the facet joint. The remaining medial aspect of the superior and inferior aspect of the facet joint were taken down with the kerrison from the pedicle of L5 to S1. The facet joint had significant hypertrophy. Attention was then brought to the Ligamentum Flavum. The ligament was taken down from the lamina of L5 to S1 and out medially to the remaining facet joint. The ligament was thick. The dura was then exposed. The dura was in good repair. The L5 nerve was then traced with a curette out the L5/S1 foramen and found to be adequately decompressed. The S1 nerve was traced with a curette around the S1 pedicle. The lateral recess was opened with a kerrison helping to further decompress the S1 nerve. Wound is then irrigated copiously with saline and surgiflo is used to stop any bleeding. The tubular retractor is removed and the wound is closed with vicryl and monocryl suture. Glue is then used to protect the wound. A sterile dressing is then placed. Patient was then placed in the supine position and transferred to the PACU in stable condition.
--- NOTE | 2022-09-18 08:01 | P.ANESUD_ITS ---
Pre-Anesthetic Update Pre-Anesthetic Assessment: Date of Surgery/Procedure: 09/18/22 Preop Sharon gnosis: Lumbar stenosis with neurogenic claudication Proposed Procedure: Operation Date: 09/18/22 07:00 Proposed Procedures p Lumbar Spine Decompression:RT side L5/S1 Lumbar decompression, 15334,M48.062(Right) - Peter Storey, DO Any changes to Pre-Anesthetic Assessment?: No Last Intake: Intake Last Liquid Date 09/17/22 Last Liquid Time 04:00 Last Solid Date 09/16/22 Last Solid Time 19:00 Vitals: Temperature 97.8 F 09/18/22 06:03 Temperature Source Temporal Artery S can 09/18/22 06:03 Pulse Rate 69 09/18/22 06:03 Respiratory Rate 16 09/18/22 06:03 Blood Pressure 170/92 09/18/22 06:03 Blood Pressure Floridalma n 118 09/18/22 06:03 Pulse Oximetry 99 09/18/22 06:03 Oxygen Delivery Me thod 09/18/22 06:03 Exam: Pre-Anes Outpt Exam: alert, oriented x 3, clear to auscultation bilaterally and regular rate & rhythm Cardiac Studies: No Data to Display
--- NOTE | 2022-09-18 08:01 | XR_ITS ---
WS: [id number] XR lumbar spine 1V [id number] REASON FOR EXAM: or pics FINDINGS: Surgical instrument overlying the right L5-S1 disc space. XR/XR lumbar spine 1V [id number] IMPRESSION: Lumbar localization in surgery as above.
[2022-09-18] MEDS: HYDROcodone-acetaminophen 5-325 mg Tablet 1 TAB PO (08:45)
--- NOTE | 2022-09-18 14:11 | ANE.PACU2 ---
Inpatient post-anesthesia follow up: Airway intact: Yes Vital signs: Temperature 97.0 F Pulse Rate 59 Respiratory Rate 16 Blood Pressure 133/89 Pulse Oximetry 97 Oxygen Delivery Me thod Room Air Oxygen Flow Rate 6 Fraction of Inspir ed Oxygen Hydration adequate: Yes Nausea and vomiting: No Pain level: 2 Mental status: Baseline
== END 2022-09-18 09:07 | disposition home or self-care (01) ==
PROVIDERS: PCP Family Medicine; Visit Provider Orthopaedic Surgery
PROC: (CPT 63005; principal; 2022-09-18 07:00)
DX: M48.062 Spinal stenosis, lumbar region with neurogenic claudication (principal); F17.200 Nicotine dependence, unspecified, uncomplicated; J44.9 Chronic obstructive pulmonary disease, unspecified
CPT/HCPCS: 63047; 72020; 76000; J0690; J1100; J1170; J2405; J2704; J2710; J3010; J3490; J7030

== ENCOUNTER → 2022-10-06 13:32 | Outpatient (BNVA) | payer MEDICARE, SELFPAY | PROVIDERS: PCP Family Medicine; Visit Provider Orthopaedic Surgery | DX: Z47.89 Encounter for other orthopedic aftercare (principal) | CPT/HCPCS: 99024 ==

== ENCOUNTER → 2023-07-08 10:37 | Outpatient (BNVA) | payer MEDICARE, SELFPAY | PROVIDERS: PCP Family Medicine; Visit Provider Podiatrist Foot & Ankle Surgery | DX: Q82.8 Other specified congenital malformations of skin (principal); M79.671 Pain in right foot; M79.672 Pain in left foot | CPT/HCPCS: 17110; 99203 ==

== ENCOUNTER → 2023-09-15 11:26 | Outpatient (BNVA) | payer MEDICARE, SELFPAY | PROVIDERS: PCP Family Medicine; Visit Provider Podiatrist Foot & Ankle Surgery | DX: Q82.8 Other specified congenital malformations of skin (principal) | CPT/HCPCS: 17110 ==

== ENCOUNTER → 2023-09-22 12:35 | Outpatient (BNVA) | payer MEDICARE, SELFPAY | PROVIDERS: PCP Family Medicine; Visit Provider Podiatrist Foot & Ankle Surgery | DX: Q82.8 Other specified congenital malformations of skin (principal) | CPT/HCPCS: 99213 ==

== ENCOUNTER 2023-10-21 05:50 | Inpatient (IN) | payer MEDICARE, SELFPAY ==
[2023-10-21] VITALS (14 sets, daily range): BP systolic 134–160; BP diastolic 71–94; PULSE 48–69; RESP 14–27; TEMP 36.4–36.8; O2SAT 95–99; BMI 24.3; BMI 23.7
--- NOTE | 2023-10-21 06:11 | W.ED.CHESTPA ---
HPI - Chest Pain General: Chief Complaint: Chest Pain Stated Complaint: CP Time Seen by Provider: 10/21/23 05:51 Source: patient Mode of arrival: EMS History of Present Illness: 63-year-old male presents emergency room via EMS with complaint of chest discomfort radiating to his back off and on for the last 2 days has been while patient is at rest. Worse early hours this morning called EMS he was given 3 sublingual nitro 25 of morphine and 4 mg Zofran and route. He states that time he was seen pain rating to his left arm jaw and back. Patient significantly bradycardic on arrival. He states he did take Tylenol and use muscle rub on his back which seemed to help the discomfort. He does not notice it associated with exertion. He is not currently on any beta-claire or calcium channel claire. Patient took 325 aspirin prior to EMS arrival. On exam pain is found to be reproducible with palpation across the mid thoracic spine. MD complaint: chest pain Timing of current episode: episodic Pain location: substernal Pain radiation: back and neck Quality: aching and heaviness Relieving factors: nothing Exacerbating factors: nothing Associated symptoms: Deny abdominal pain, dyspnea or fever(s) Treatment prior to arrival: aspirin Review of Systems Const: Denies: fever(s) or chills Card: Reports: chest pain and irregular heart rhythm; Denies: edema or swelling of feet/ankles Resp: Denies: dyspnea GI: Denies: abdominal pain : Denies: dysuria, urinary frequency or urinary urgency Musc: Denies: neck pain or back pain Skin/Breast: Denies: rash [facility] ED PFSH: Medical History (Updated 10/21/23 @ 07:52 by Darnell Hussein DO) Intervertebral disc disorders with radiculopathy, 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 Yana Keene pain management. Thoracic spinal cord stimulator placement (08/13/2009). Malfunction of spinal cord stimulator Family History Father Cancer Mother Heart disease Hypertension Social History Smoking and tobacco/nicotine status: current every day tobacco/nicotine user Alcohol intake: never Substance/Drug Use: never Household members: spouse Marital status: Current occupational status: retired Physical Exam Const: COMMON NORMALS: no acute distress GENERAL APPEARANCE: cooperative and comfortable ORIENTATION/CONSCIOUSNESS: Yes awake, Yes oriented to person, Yes oriented to place and Yes oriented to time HENMT: COMMON NORMALS: normocephalic, atraumatic and hearing grossly normal bilaterally HEAD & SCALP: normocephalic and atraumatic Resp: COMMON NORMALS: normal respiratory effort, No retractions, No use of accessory muscles and clear to auscultation bilaterally AUSCULTATION: clear to auscultation bilaterally Cardio: COMMON NORMALS: regular rate, regular rhythm and No murmurs present (Cardio) RATE: regular rate RHYTHM: regular rhythm GI: COMMON NORMALS: Soft to palpation and No hepatosplenomegaly present AUSCULTATION: Yes normoactive bowel sounds PALPATION: Yes Soft to palpation, No Tenderness to palpation present (GI), No Guarding due to palpation present (GI) and Yes No hepatosplenomegaly present Extremity: COMMON NORMALS: normal to inspection, capillary refill normal, no clubbing, cyanosis or edema, no calf tenderness and no pedal edema Neuro: SENSORIUM/ORIENTATION: Yes oriented to person, Yes oriented to place and Yes oriented to time Skin: COMMON NORMALS: no rashes or lesions noted GENERAL SKIN EXAM: no rashes or lesions noted Course Vital Signs: Vital signs: Vital Signs Temperature 97.5 F L 10/21/23 05:52 Pulse Rate 51 L 10/21/23 07:30 Respiratory Rate 16 10/21/23 07:30 Blood Pressure 152/71 10/21/23 07:30 Pulse Oximetry 97 10/21/23 07:30 Oxygen Delivery Me thod Room Air 10/21/23 06:23 MDM - Chest Pain Medical Decision Making Initial EKG shows a Mobitz type I block rate of 43. There are some changes in V1 to V3 is upsloping did not meet full criteria at this time for an ST elevation WI and there are no reciprocal changes. Repeat EKG after first troponin 396 shows similar findings in V12 and 3 but more noticeable changes in V45 and 6. Still no reciprocal changes reviewed with Dr. Adkins. Rhythm now with sinus bradycardia with occasional PVCs rate of 50. Dr. Card is not life that she had acute ST elevation WI at this time. Discussed Dr. Benito will admit for NSTEMI consult Dr. Wagner who is in first call for cardiology. Patient has been started on heparin and nitro he is already received aspirin. Also given Plavix. Medical Records I reviewed the patient's medical records. Lab Data I reviewed the patient's lab results. 10/21/23 06:31 10/21/23 06:31 Radiology Impressions Chest X-Ray 10/21/23 06:12 IMPRESSION: No acute findings. Laboratory Results WBC 11.13 10^3/uL (3.29-11.43) 10/21/23 06:31 RBC 4.89 10^6/uL (3.85-5.65) 10/21/23 06:31 Hgb 15.10 g/dL (11.27-16.99) 10/21/23 06:31 Hct 44.4 % (37-53) 10/21/23 06:31 MCV 90.8 fl (82-101) 10/21/23 06:31 MCH 30.9 pg (27-33) 10/21/23 06:31 MCHC 34.0 g/dL (30-55) 10/21/23 06:31 RDW 13.1 % (12.1-15.1) 10/21/23 06:31 Plt Count 232 10^3/cmm (157-399) 10/21/23 06:31 MPV 9.8 fL (7.4-10.4) 10/21/23 06:31 Neut % (Auto) 76.1 % 10/21/23 06:31 Lymph % (Auto) 12.2 % 10/21/23 06:31 [facility] % (Auto) 9.4 % 10/21/23 06:31 Eos % (Auto) 1.3 % 10/21/23 06:31 Baso % (Auto) 0.6 % 10/21/23 06:31 Neut # (Auto) 8.47 10^3/uL (1.8-7.7) H 10/21/23 06:31 Lymph # (Auto) 1.4 10^3/uL (0.8-4.8) 10/21/23 06:31 [facility] # (Auto) 1.1 10^3/uL (0.2-0.9) H 10/21/23 06:31 Eos # (Auto) 0.1 10^3/uL (0.0-0.8) 10/21/23 06:31 Baso # (Auto) 0.1 10^3/uL (0.0-0.1) 10/21/23 06:31 Nucleated RBC % (auto) 0 % 10/21/23 06:31 Nucleated RBCs # 0.0 /100WBC 10/21/23 06:31 D-Dimer 0.42 ug/mLFEU (0-0.59) 10/21/23 06:31 Sodium 139 mmol/L (136-145) 10/21/23 06:31 Potassium 3.6 mmol/L (3.5-5.1) 10/21/23 06:31 Chloride 104 mmol/L (98-107) 10/21/23 06:31 Carbon Dioxide 24 mmol/L (22-29) 10/21/23 06:31 Anion Gap 14.6 (5-19) 10/21/23 06:31 BUN 15 mg/dL (8-23) 10/21/23 06:31 Creatinine 1.0 mg/dL (0.7-1.2) 10/21/23 06:31 GFR Calculation 75.7 mL/min (90-130) L 10/21/23 06:31 Glucose 108 mg/dL (65-115) 10/21/23 06:31 Calculated Osmolality 289 mOsm/kg (285-295) 10/21/23 06:31 Calcium 8.9 mg/dL (8.5-10.5) 10/21/23 06:31 Total Bilirubin 0.4 mg/dL (0.15-1.2) 10/21/23 06:31 AST 54 U/L (0-40) H 10/21/23 06:31 ALT 23 U/L (0-41) 10/21/23 06:31 Alkaline Phosphatase 61 U/L (40-130) 10/21/23 06:31 Troponin T Baseline 396 ng/L (0-15) H* 10/21/23 06:31 Total Protein 6.9 g/dL (6.6-8.7) 10/21/23 06:31 Albumin 4.0 g/dL (3.5-5.2) 10/21/23 06:31 Globulin 2.9 g/dL (1.3-4.6) 10/21/23 06:31 All radiology interpretation(s) finalized by discharge Discharge Plan Discharge Patient Disposition: Admitted As Inpatient Clinical Impression: Non-ST elevation WI (NSTEMI) Condition: Stable Coding Level of Care Code ED Import Customer Service Manager for Rose Cano
--- NOTE | 2023-10-21 06:12 | XRR_ITS ---
PROCEDURE INFORMATION: Exam: XR Chest Exam date and time: 10/21/2023 6:20 AM Age: 63 years old Clinical indication: Pain; Angina pectoris; Additional info: Chest pain TECHNIQUE: Imaging protocol: Radiologic exam of the chest. Views: 1 view. COMPARISON: CR XR thoracic spine 2V [id number] 03/31/2022 3:26 PM FINDINGS: Lungs: Unremarkable. No consolidation. Pleural spaces: Unremarkable. No pleural effusion. No pneumothorax. Heart/Mediastinum: See Vasculature finding. Vasculature: Borderline cardiomegaly and uncoiling of the thoracic aorta. Bones/joints: Unremarkable. XR/XR chest 1V portable [id number] IMPRESSION: No acute findings.
--- NOTE | 2023-10-21 06:12 | ECG_ITS ---
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 Measurements Intervals [place] Rate: 43 P: 0 AL: 0 QRS: 33 QRSD: 104 T: 68 QT: 429 QTc: 365 Interpretive Statements SINUS BRADYCARDIA WITH 2ND DEGREE AV BLOCK, MOBITZ TYPE I (WENCKEBACH) POSSIBLE ANTERIOR MYOCARDIAL INFARCTION , OF INDETERMINATE AGE [30 ms Q WAVE IN V3/V4, OR R < 0.2 mV IN V4] No previous ECG available for comparison Electronically Signed On 10-21-2023 11:48:07 CDT by Jaiden Ocasio M.D. [id number] f
[2023-10-21 06:45] LABS: Basophils # 0.1 10^3/uL (0.0-0.1); Basophils % 0.6 %; Eosinophils # 0.1 10^3/uL (0.0-0.8); Eosinophils % 1.3 %; Hematocrit 44.4 % (37-53); Lymphocytes # 1.4 10^3/uL (0.8-4.8); Lymphocytes % 12.2 %; Mean Corpuscular Hemoglobin 30.9 pg (27-33); Mean Corpuscular Volume 90.8 fl (82-101); Mean Platelet Volume 9.8 fL (7.4-10.4); Monocytes # 1.1 10^3/uL (0.2-0.9); Monocytes % 9.4 %; Neutrophils # 8.47 10^3/uL (1.8-7.7); Neutrophils % 76.1 %; Nucleated Red Blood Cells % 0 %; Platelet Count 232 10^3/cmm (157-399); Red Blood Count 4.89 10^6/uL (3.85-5.65); Red Cell Distribution Width 13.1 % (12.1-15.1); White Blood Count 11.13 10^3/uL (3.29-11.43)
[2023-10-21 06:59] LABS: D Dimer 0.42 ug/mLFEU (0-0.59)
[2023-10-21 07:01] LABS: Alanine Aminotransferase 23 U/L (0-41); Alkaline Phosphatase 61 U/L (40-130); Anion Gap 14.6 (5-19); Aspartate Amino Transferase 54 U/L (0-40); Blood Urea Nitrogen 15 mg/dL (8-23); Calcium 8.9 mg/dL (8.5-10.5); Carbon Dioxide 24 mmol/L (22-29); Chloride 104 mmol/L (98-107); Globulin 2.9 g/dL (1.3-4.6); Glomerular Filtration Rate 75.7 mL/min (90-130); Glucose 108 mg/dL (65-115); Osmolality Calculated 289 mOsm/kg (285-295); Potassium 3.6 mmol/L (3.5-5.1); Sodium 139 mmol/L (136-145); Total Bilirubin 0.4 mg/dL (0.15-1.2); Total Protein 6.9 g/dL (6.6-8.7)
[2023-10-21 07:15] LABS: Troponin(5th) Baseline 396 ng/L (0-15)
--- NOTE | 2023-10-21 07:20 | ECG_ITS ---
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 Measurements Intervals [place] Rate: 50 P: 64 WI: 182 QRS: 37 QRSD: 106 T: 77 QT: 462 QTc: 425 Interpretive Statements SINUS BRADYCARDIA WITH OCCASIONAL VENTRICULAR PREMATURE COMPLEXES ANTERIOR MYOCARDIAL INFARCTION , PROBABLY RECENT [40+ ms Q WAVE AND/OR ST/T ABNORMALITY IN V3/V4] POSSIBLE INFERIOR MYOCARDIAL INFARCTION , AGE INDETERMINATE Compared to ECG 10/21/2023 05:55:43 Ventricular premature complex(es) now present Myocardial infarct finding still present Electronically Signed On 10-21-2023 11:49:39 CDT by Jaiden Ocasio M.D. [id number]
--- NOTE | 2023-10-21 07:32 | PC.PHAR ---
pt states he takes no prescription medications pt states only takes whats entered
[2023-10-21] MEDS: clopidogrel 300 mg Tablet 600 MG PO (07:47)
[2023-10-21] MEDS: heparin 5,000 unit/mL INJ 1 mL IV ×2 (07:47→23:54)
[2023-10-21] MEDS: heparin drip 25,000 UNIT/500 ML PREMIX 24.129999999999999 UNIT IV (07:50)
--- NOTE | 2023-10-21 08:16 | P.HP_ITS ---
Providers/Chief Complaint 2 Admitting Physician: Tato Benito MD, hospitalist Primary Care Provider: Meek Sanchez Chief Complaint: CP History of Present Illness Meek Sommers is a 63 year old male presenting from home to the emergency department with complaints of chest discomfort. He reports chest discomfort has been going on since around Wednesday. It is off and on. He reports it is substernal, vague, radiation into left arm and left jaw. He also has some mid back pain. He reports he has had some of this discomfort previously, and some has been exertional. He thought originally it may have to do with his chronic neck and back issues. He reports no prior history of coronary disease. No recent illness. No blood in stool or black or tarry stool. No history of severe reflux or gastric ulcer. Review of Systems 2 General: Reports: 10 or more systems reviewed and unremarkable except in HPI and below Card: Reports: chest pain Resp: Denies: dyspnea GI: Denies: abdominal pain, nausea, vomiting, hematochezia or melena Medications/Allergies Home Medications Medication Instructions Recorded Confirmed Last Taken Type acetaminophen 500 mg tablet 1,000 - 1,500 mg PO Q6H PRN Pain 10/21/23 10/21/23 10/21/23 03:30 History multivitamin 1 tab PO DAILY 10/21/23 10/21/23 10/20/23 History Allergies Allergy/AdvReac Type Severity Reaction Status Date / Time No Known Allergies Allergy Verified 10/21/23 07:29 PFSH Acute 2 PFSH: Medical History Intervertebral disc disorders with radiculopathy, 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 Yana Keene pain management. Thoracic spinal cord stimulator placement (08/13/2009). Malfunction of spinal cord stimulator Family History Father Cancer Mother Heart disease Hypertension Social History Smoking and tobacco/nicotine status: current every day tobacco/nicotine user Alcohol intake: never Substance/Drug Use: never Household members: spouse Marital status: Current occupational status: retired Vitals/I&O/Wt Last Vital Signs Temp 97.5 F L 10/21/23 05:52 Pulse 51 L 10/21/23 07:30 Resp 16 10/21/23 07:30 BP 152/71 10/21/23 07:30 Pulse Ox 97 10/21/23 07:30 O2 Del Method Room Air 10/21/23 06:23 Weight last 48 hrs Weight 86.183 kg Physical Exam 2 Narrative: General exam is a white male, reporting much improved chest discomfort with just a little residual back discomfort HEENT: Atraumatic and normocephalic. Oropharynx clear Neck is supple no lymphadenopathy thyromegaly Cardiovascular regular, bradycardic, no murmur Lungs clear no wheezing or crackles Abdomen is soft with positive bowel sounds. No obvious organomegaly exam is deferred Extremities no cyanosis clubbing or edema, cap refill brisk Skin no rash Neuro no obvious focal deficits Data 10/21/23 06:31 10/21/23 06:31 Other Labs: Dimer 0.42 LFTs are normal with the exception of AST of 54 Initial troponin 396 I have ordered a TSH Calcium and albumin are norm Chest x-ray reviewed by me demonstrates cardiomegaly, no obvious infiltrate EKG reviewed by me first, demonstrates sinus bradycardia. Poor R wave progression. Concern for recent anterior SC. Slight elevation in V1 and V2, not quite meeting criteria is noted. Second-degree AV block noted. Q waves inferiorly. Repeat EKG demonstrates sinus bradycardia, normal axis, poor R wave progression. Q waves inferiorly A&P Assessment and plan (1) Non-ST elevation SC (NSTEMI): Patient presents with a non-ST elevation myocardial infarction. This is likely been progressing since Wednesday. He ireceived 325 mg of aspirin per EMS services He is receiving 600 mg of Plavix, initiation of a heparin drip, initiation of a nitroglycerin drip per ER Cardiology consult Check TSH Echocardiogram Check lipids in the morning Continue aspirin, Plavix, add statin. Continue heparin Not a candidate for low-dose beta-claire secondary to bradycardia Serial troponins Plan Chronic neck and back pain Attestations 2 Medical Necessity Statement*: Will need greater than 2 midnight stay for evaluation and treatment of non-ST elevation myocardial infarction Diagnoses Non-ST elevation SC (NSTEMI) I21.4 Time Spent (min) 57
[2023-10-21] MEDS: nitroglycerin drip 50 MG/250 ML PREMIX IV (08:22)
[2023-10-21 08:31] LABS: Thyroid Stimulating Hormone 2.84 uIU/mL (0.27-4.20)
[2023-10-21 08:41] LABS: Troponin 5 2HR 411.2 ng/L (0-15); Troponin 5 2HR Delta 15.2 ABS# (0-10)
[2023-10-21] MEDS: pantoprazole DR 40 mg Tablet PO (09:45)
[2023-10-21] MEDS: atorvastatin 40 mg Tablet PO (09:45)
[2023-10-21] MEDS: morphine 4 mg/mL SDV 1 mL 2 MG IVP ×2 (09:53→18:37)
--- NOTE | 2023-10-21 12:29 | P.CONIM_ITS ---
Providers/Reason For Consult 2 Consulting Physician/Specialty*: PEREZ Holbrook MD/cardiology Reason for Consult*: Patient with chest pain and elevated troponin T Requesting Physician: Dr. Benito/Dr. Hi Attending Physician: Tato Benito MD Primary Care Provider: Meek Sanchez History of Present Illness History of Present Illness Meek Sommers is a 63 year old male with no severe past medical history, presenting with complaints of chest pain off and on since Wednesday this week. According the patient, he was in his baseline state of health up until last Wednesday when he started having pressure-like pain between the shoulder blades towards the upper part. The pain was occasionally radiating to the front and also to the left arm. Initially the pain was mild to moderate. He had several episodes of pain on Wednesday and Wednesday. Thinking that the pain could be musculoskeletal, his applied some ointment in the back which gave him some relief. But early this morning around 4:00, he woke up with severe pain in the mid substernal region. The pain was 9/10. It was radiating across the chest and also radiated to the left arm and to the back. He had some associated shortness of breath and nausea. No significant sweating, palpitation, dizziness or syncopal episode. The pain was somewhat waxing and waning. For this reason, the called the ambulance. He was given sublingual nitro in the ambulance. In the emergency room, the EKG showed some nonspecific ST-T changes. The initial troponin T was found to be elevated. He had a Significant delta at 2 hours. He is admitted to hospital for further evaluation and management. At the time of my examination, the pain is 3/10. According to the patient, the intensity of the pain is slowly subsiding. He never had any complete relief of the pain since this morning. He has no fever, chills or cough. No unusual shortness of breath at this time. Patient has no previous history for coronary disease, myocardial infarction or congestive heart failure. A year and a half ago, he had a back surgery and had an eventful postsurgical course. He has a history of smoking abuse, 1 to 2 pack a day for the last more than 30 years. No alcohol abuse or any other substance abuse. He currently smokes half to 1 pack a day. He has no significant family history for premature atherosclerotic heart disease. He is with 4 children. No history of any cardiac illnesses in the family. The troponin T was 396 at the baseline which went up to 411 after two hrs. Review of Systems 2 Narrative: CONSTITUTIONAL: No fever or chills. EYES: No blurring of vision or other visual disturbances lately. ENT: No hoarseness of voice, auditory disturbances or sore throat. CARDIOVASCULAR: As mentioned above. RESPIRATORY: No significant cough. GASTROINTESTINAL: No hematemesis or melena. GENITOURINARY: No dysuria or hematuria. INTEGUMENTARY: No skin rashes or history of skin cancer. NEURO: No transient ischemic attacks or amaurosis. PSYCHIATRIC: No history of psychosis or major depression. HEMATOLOGIC: No bleeding disorders or significant anemia. ENDOCRINE: No history of polyuria or polydipsia. MUSCULOSKELETAL: Has some chronic back pains ALLERGY/IMMUNOLOGY: As mentioned above. Medications/Allergies Home Medications Medication Instructions Recorded Confirmed Last Taken Type acetaminophen 500 mg tablet 1,000 - 1,500 mg PO Q6H PRN Pain 10/21/23 10/21/23 10/21/23 03:30 History multivitamin 1 tab PO DAILY 10/21/23 10/21/23 10/20/23 History Allergies Allergy/AdvReac Type Severity Reaction Status Date / Time No Known Allergies Allergy Verified 10/21/23 07:29 Current Medications Generic Name Dose Route Start Last Admin Trade Name Freq PRN Reason Stop Dose Admin Atorvastatin Calcium 40 mg 10/21/23 09:23 10/21/23 09:45 Atorvastatin 40 Mg Tablet PO 40 mg DAILY NEFTALI Administration Heparin Sodium (Porcine) 0 unit 10/21/23 07:16 10/21/23 07:47 Heparin 5,000 Unit/Ml Inj 1 Ml IV 4,300 unit PRN PRN Administration Heparin weight-base protocol Protocol Heparin Sodium/Sodium Chloride 25,000 unit in 500 mls @ 0 mls/hr 10/21/23 07:30 10/21/23 07:50 Heparin Drip IV 14 unit/kg/hr .Q0M NEFTALI 24.13 mls/hr Administration Protocol Per Protocol Nitroglycerin/Dextrose 50 mg in 250 mls @ 0 mls/hr 10/21/23 08:30 10/21/23 08:22 Nitroglycerin Drip IV 5 mcg/min .Q0M NEFTALI 1.5 mls/hr Administration Protocol Per Protocol Morphine Sulfate 2 mg 10/21/23 09:23 10/21/23 09:53 Morphine 4 Mg/Ml Sdv 1 Ml IVP 2 mg Q4H PRN Administration SEVERE PAIN Pantoprazole Sodium 40 mg 10/21/23 09:23 10/21/23 09:[address] 40 Mg Tablet PO 40 mg DAILY NEFTALI Administration PFSH Acute 2 PFSH: Medical History (Updated 10/21/23 @ 15:53 by Alicia Holbrook MD) Intervertebral disc disorders with radiculopathy, 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 Yana Keene pain management. Thoracic spinal cord stimulator placement (08/13/2009). Malfunction of spinal cord stimulator Family History Father Cancer Mother Heart disease Hypertension Social History Smoking and tobacco/nicotine status: current every day tobacco/nicotine user Alcohol intake: never Substance/Drug Use: never Household members: spouse Marital status: Current occupational status: retired Vitals/I&O/Wt Last Vital Signs Temp 97.6 F 10/21/23 11:12 Pulse 51 L 10/21/23 11:12 Resp 16 10/21/23 11:12 BP 138/85 10/21/23 11:12 Pulse Ox 97 10/21/23 11:12 O2 Del Method Room Air 10/21/23 11:12 Weight last 48 hrs Weight 190 lb Physical Exam 2 Narrative: GENERAL: The patient is alert and oriented times three. Not in any acute distress. HEENT: No significant pallor, icterus or lymphadenopathy.Oral cavity: There are no mucous membrane lesions. NECK: Trachea appears to be central. No masses noted. No JVD or thyromegaly appreciated. RESPIRATORY: Chest is symmetrical. No intercostals muscle retraction or any accessory muscle activation. There is no chest wall tenderness. Breath sounds are heard bilaterally. No rales or rhonchi heard. No evidence of any consolidation. BREASTS: Deferred. HEART: The heart sounds are normal. No S3 or S4. No significant murmurs. No pericardial rub ABDOMEN: No vessel pulsations or distention. No tenderness. No organomegaly appreciated. Bowel sounds are normally heard. : Deferred. RECTAL: Deferred. LYMPHATIC: No lymphadenopathy noted in the neck. EXTREMITIES: No edema or cyanosis. No clubbing. MUSCULOSKELETAL: No acute joint deformities or swelling SKIN: There are no significant rashes or ecchymosis NEUROPSYCHIATRIC: The patient is alert and oriented x3. Appears to be in a good mood. No tremors or rigidity noted. Data 10/21/23 06:31 10/21/23 06:31 Other Labs: Laboratory Last Values WBC 11.13 10^3/uL (3.29-11.43) 10/21/23 06:31 RBC 4.89 10^6/uL (3.85-5.65) 10/21/23 06:31 Hgb 15.10 g/dL (11.27-16.99) 10/21/23 06:31 Hct 44.4 % (37-53) 10/21/23 06:31 MCV 90.8 fl (82-101) 10/21/23 06:31 MCH 30.9 pg (27-33) 10/21/23 06:31 MCHC 34.0 g/dL (30-55) 10/21/23 06:31 RDW 13.1 % (12.1-15.1) 10/21/23 06:31 Plt Count 232 10^3/cmm (157-399) 10/21/23 06:31 MPV 9.8 fL (7.4-10.4) 10/21/23 06:31 Neut % (Auto) 76.1 % 10/21/23 06:31 Lymph % (Auto) 12.2 % 10/21/23 06:31 [place] % (Auto) 9.4 % 10/21/23 06:31 Eos % (Auto) 1.3 % 10/21/23 06:31 Baso % (Auto) 0.6 % 10/21/23 06:31 Neut # (Auto) 8.47 10^3/uL (1.8-7.7) H 10/21/23 06:31 Lymph # (Auto) 1.4 10^3/uL (0.8-4.8) 10/21/23 06:31 [place] # (Auto) 1.1 10^3/uL (0.2-0.9) H 10/21/23 06:31 Eos # (Auto) 0.1 10^3/uL (0.0-0.8) 10/21/23 06:31 Baso # (Auto) 0.1 10^3/uL (0.0-0.1) 10/21/23 06:31 Nucleated RBC % (auto) 0 % 10/21/23 06:31 Nucleated RBCs # 0.0 /100WBC 10/21/23 06:31 D-Dimer 0.42 ug/mLFEU (0-0.59) 10/21/23 06:31 Sodium 139 mmol/L (136-145) 10/21/23 06:31 Potassium 3.6 mmol/L (3.5-5.1) 10/21/23 06:31 Chloride 104 mmol/L (98-107) 10/21/23 06:31 Carbon Dioxide 24 mmol/L (22-29) 10/21/23 06:31 Anion Gap 14.6 (5-19) 10/21/23 06:31 BUN 15 mg/dL (8-23) 10/21/23 06:31 Creatinine 1.0 mg/dL (0.7-1.2) 10/21/23 06:31 GFR Calculation 75.7 mL/min (90-130) L 10/21/23 06:31 Glucose 108 mg/dL (65-115) 10/21/23 06:31 Calculated Osmolality 289 mOsm/kg (285-295) 10/21/23 06:31 Calcium 8.9 mg/dL (8.5-10.5) 10/21/23 06:31 Total Bilirubin 0.4 mg/dL (0.15-1.2) 10/21/23 06:31 AST 54 U/L (0-40) H 10/21/23 06:31 ALT 23 U/L (0-41) 10/21/23 06:31 Alkaline Phosphatase 61 U/L (40-130) 10/21/23 06:31 Troponin T Baseline 396 ng/L (0-15) H* 10/21/23 06:31 Troponin T 120 Minute 411.2 ng/L (0-15) H 10/21/23 08:11 Delta Troponin T 15.2 ABS# (0-10) H* 10/21/23 08:11 Total Protein 6.9 g/dL (6.6-8.7) 10/21/23 06:31 Albumin 4.0 g/dL (3.5-5.2) 10/21/23 06:31 Globulin 2.9 g/dL (1.3-4.6) 10/21/23 06:31 TSH 2.84 uIU/mL (0.27-4.20) 10/21/23 06:31 EKG 1: My Interpretation: EKG showed sinus bradycardia with a rate of [address]-T changes in leads V1 to V4. Small Q waves in the inferior and anterolateral leads. Other data: The chest x-ray revealed normal cardiac silhouette with no lung infiltrates. No acute pathology noted. A&P Assessment and plan (1) Atherosclerotic heart disease of [place] coronary artery with unstable angina pectoris: I may treat the patient with a topical nitrates, subcu Lovenox, Plavix and aspirin. Because of bradycardia, I may hold off on a beta-claire. Qualifiers: [place] vs. transplanted heart: [place] heart Qualified Code(s): I25.110 - Atherosclerotic heart disease of [place] coronary artery with unstable angina pectoris (2) Non-ST elevation VA (NSTEMI): As mentioned above. (3) Smoking addiction: Patient strongly advised to quit smoking for (4) Dyslipidemia: Patient is started on Lipitor which may be continued. (5) Elevated blood pressure reading: May start the patient on lisinopril 5 mg p.o. now and daily. Plan Patient needs to be closely monitored on telemetry. An echocardiogram would be helpful to evaluate LV function and rule out any other pathology. Patient requires a cardiac catheterization, to further evaluate the coronary status and decide on further management. Patient on the results of the above tests and the patient's clinical progress, further recommendations will be made. Thank you for the opportunity to evaluate this patient and make these recommendations Coding Level of Care Code 55867 Diagnoses Atherosclerosis of [place] coronary artery of [place] heart with unstable angina pectoris I25.110 [place] vs. transplanted heart: [place] heart Non-ST elevation VA (NSTEMI) I21.4 Smoking addiction F17.200 Dyslipidemia E78.5 Elevated blood pressure reading R03.0
[2023-10-21 13:05] LABS: Troponin 5 6HR 459.7 ng/L (0-15); Troponin 5 6HR Delta 63.7 ng/L (0-12)
--- NOTE | 2023-10-21 13:41 | ECG_ITS ---
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 Measurements Intervals [place] Rate: 53 P: 69 LA: 174 QRS: 41 QRSD: 106 T: 72 QT: 461 QTc: 435 Interpretive Statements SINUS BRADYCARDIA WITH MARKED SINUS ARRHYTHMIA PROBABLE INFERIOR MYOCARDIAL INFARCTION , PROBABLY OLD [35 ms Q WAVE IN II/aVF] MODERATE T-WAVE ABNORMALITY, CONSIDER ANTERIOR ISCHEMIA [-0.1+ mV T-WAVE IN V3/V4] Compared to ECG 10/21/2023 07:20:04 T-wave abnormality now present Possible ischemia now present Ventricular premature complex(es) no longer present Myocardial infarct finding still present Electronically Signed On 10-21-2023 14:21:05 CDT by Jaiden Ocasio M.D. [id number]
[2023-10-21 14:35] LABS: Partial Thromboplastin Time 80.6 SECONDS (23.9-36.7)
--- NOTE | 2023-10-21 16:15 | USCV_ITS ---
Meek Sommers Age: 63 Gender: M : 1960 Exam Date: 10/21/2023 20:37 Ordering Phys: Tato Benito MD Technologist: YEYO Exam Location: [facility] [place] Indication: NSTEMI, chest pain. No history of cardiac intervention per patient. BP: 134 / 79 HR: 58 Rhythm: Sinus bradycardia Technical Quality: Adequate MEASUREMENTS (Male / Female) Normal Values 2D ECHO LV Diastolic Diameter PLAX 5.8 cm 4.2 - 5.9 / 3.9 - 5.3 cm IVS Diastolic Thickness 1.4 cm 0.6 - 1.0 / 0.6 - 0.9 cm IVS Systolic Thickness 1.9 cm LVPW Diastolic Thickness 1.3 cm 0.6 - 1.0 / 0.6 - 0.9 cm LVPW Systolic Thickness 1.6 cm LVOT Diameter 2.2 cm LV Ejection Fraction 2D Teich 60.9 % LV Ejection Fraction MOD 2C 45.3 % LV Ejection Fraction 2C AL 45.3 % LA Diameter 4.8 cm LA Sys Volume AL 52.5 cm cubed LA Sys Volume Index AL 24.6 cm cubed/m squared Aorta at Sinotubular Diameter 3.3 cm IVC Diameter 1.8 cm M-MODE LA Ao Ratio MM 1.1 AV Cusp Separation MM 2.5 cm DOPPLER AV Peak Velocity 94.0 cm/s LVOT Peak Velocity 93.0 cm/s AV Area Cont Eq vti 3.7 cm squared AV Area Cont Eq pk 3.8 cm squared MV Peak Velocity 106.0 cm/s MV Area PHT 4.3 cm squared Mitral E to A Ratio 0.7 TR Peak Velocity 251.0 cm/s TR Peak Gradient 25.2 mmHg TV Peak E Velocity 42.0 cm/s Right Atrial Pressure 3.0 mmHg Pulmonary Artery Systolic Pressu 28.2 mmHg PV Peak Velocity 75.0 cm/s FINDINGS Left Ventricle Moderate hypokinesia of the mid and apical septum, anteroseptum, apical inferior and inferolateral wall segments. Overall ejection fraction of 45%.Grade I/IV diastolic dysfunction (abnormal relaxation filling pattern), normal to mildly elevated filling pressures. Right Ventricle The right ventricle is normal in size and function. Right Atrium The right atrium is normal in size. Left Atrium The left atrium is normal in size. Mitral Valve Mild mitral valve regurgitation. Aortic Valve No gross abnormalities noted Tricuspid Valve Trace tricuspid valve regurgitation. Estimated pulmonary artery peak systolic pressure 28 mm Hg Pulmonic Valve Mild pulmonary valve regurgitation. Pericardium Normal pericardium without effusion. Aorta Normal ascending aorta dimension. IVC The inferior vena cava appears normal. CONCLUSIONS Moderate hypokinesia of the mid and apical septum, anteroseptum, apical inferior and inferolateral wall segments. Overall ejection fraction of 45%.Grade I/IV diastolic dysfunction (abnormal relaxation filling pattern), normal to mildly elevated filling pressures. Trace tricuspid valve regurgitation. Estimated pulmonary artery peak systolic pressure 28 mm Hg. Mild pulmonary valve regurgitation. There is no pericardial effusion. There are no intracardiac masses. No similar previous studies are available for comparison Dr Alicia Holbrook MD [facility] (Electronically Signed) Final Date: 22 October 2023 09:12 S
[2023-10-21 23:44] LABS: Partial Thromboplastin Time 54.6 SECONDS (23.9-36.7)
[2023-10-22] VITALS (11 sets, daily range): BP systolic 110–169; BP diastolic 52–93; PULSE 59–82; RESP 18–24; TEMP 36.4–37; O2SAT 93–96
[2023-10-22] MEDS: morphine 4 mg/mL SDV 1 mL 2 MG IVP (03:09)
[2023-10-22] MEDS: heparin drip 25,000 UNIT/500 ML PREMIX 25 UNIT IV (03:12)
--- NOTE | 2023-10-22 06:19 | XACV_ITS ---
Exam Room: 2 Ht: 191 cm Wt: 105 kg BSA: 2.37 m2 Gender: Male : 1960 Any Known Allergies: No known allergies Exam Priority: Routine Procedure(s): Procedure Description: Diagnostic procedure Procedure Description: PCI procedure Procedure Description: Left Heart Catheterization Procedure Description: Left ventriculography Procedure Description: Drug Eluting Coronary Stent Procedure Description: PTCA Procedure Description: Miscellaneous Procedure Description: ACT Procedure Description: Coronary Angiography Procedure Description: Pressure Wire Yusef GARCÍA; Diagnostic Cath Status: Urgent Diagnostic Findings * The left main is a medium caliber vessel which appears to have a tapering narrowing of 20% distally. * The left-sided descending artery is a medium caliber vessel which appears to wrap around the LV apex minimally. The proximal and the mid LAD was found to have mild diffuse intimal irregularities. Right after the second septal burr machine operator, there was critical stenosis of around 99%. Noted to the LV apex, there was a segmental narrowing of around 70%. The first diagonal branch was found to have's minimal intimal irregularities. No other significant stenotic lesions.. * The left circumflex artery is a medium caliber vessel which appears to give off a high obtuse marginal branch(intermedius artery) which has a proximal tubular narrowing of around 60 to 70% this artery appears to bifurcate in the midsegment. No other significant stenotic lesions were noted. The mid circumflex was found to have minimal intimal irregularities. * The right coronary artery is a medium caliber dominant vessel which was found to have mild diffuse disease in the mid and distal segment. No significant stenotic lesions. PCI Status: Urgent PCI LVEF Assessed: No PCI Indication: NSTE - ACS Interventional Findings * Mid LAD 99% stenosed. This lesion underwent balloon angioplasty with a 2.5 mm balloon. This was followed by a 2.75 x 15 mm drug-eluting stent. Subsequently the more distal LAD underwent IFR measurement. This was 0.83. This lesion was then primarily stented with a 2.5 x 12 mm drug-eluting stent. The proximal first obtuse marginal branch underwent IFR measurement. This value was 0.95 so this was treated medically. Decision for PCI with Surgical Consult: No PCI for Multi-vessel Disease: No Conclusions 1. 63-year-old white male with multiple risk factors for coronary artery disease, presenting with unstable anginal symptoms. Clinical features of a non-ST elevation myocardial infarction. Echocardiographic evidence of multiple wall motion normalities with a diminished ejection fraction. For further evaluation of his coronary status, a cardiac catheterization was recommended. Patient underwent left heart catheterization with coronary angiogram and LV angiogram today. The findings are as follows. 2. 1. 20% tapering narrowing of distal left main. 2. High-grade lesions in the distal LAD right after the second septal burr machine operator. Moderately severe disease in the distal LAD need to the LV apex.3. Moderately severe disease in the proximal segment of the intermedius artery(high obtuse marginal branch)4. Mild diffuse disease in the circumflex artery and the right coronary artery. 5. Diminished LV ejection fraction of 40%. LVEDP of 20 mmHg. 3. I reviewed and discussed the cardiac catheterization data with the Dr. Adkins. It was thought to be appropriate to consider PCI of the LAD lesion and possible IFR of the distal lesion in the LAD and the proximal lesion in the intermedius artery. Dr. Adkins concurred with this plan and took over further management of this patient at this point. Diagnostic RX Recommendation: PCI w/o planned CABG Ventriculography Ejection Fraction: 40.0 % LV EDP: 19 mmHg Left Ventriculography Findings: * LV gram was performed the ZARCO projection. LV cavity appears to be mildly dilated. There is moderate diffuse hypokinesia of the anteroapical region. The overall ejection fraction was around 40%. The LVEDP was 19 mmHg. There is no filling defects. No mitral valve prolapse or mitral regurgitation.. Pressures Phase:Rest AO : 104 / 80 ( 86 ) @ 1:13:00 PM 106 / 81 ( 88 ) @ 1:14:00 PM 113 / 84 ( 94 ) @ 1:20:00 PM 128 / 65 ( 90 ) @ 1:24:00 PM 123 / 69 ( 92 ) @ 1:24:00 PM 115 / 72 ( 89 ) @ 1:37:00 PM 126 / 83 ( 98 ) @ 1:52:00 PM LV : 136 / -1 / 19 @ 1:23:00 PM 124 / 0 / 18 @ 1:24:00 PM 122 / 0 / 17 @ 1:24:00 PM Valves Phase:DefaultPhase AV : 0.0 @ 1:18:50 PM AV Mean Gradient: 0.0 @ 1:18:50 PM 0.0 @ 1:18:50 PM Clinical Evaluation EBL: 5mL-10mL Procedural Details Procedure Consent Obtained. Current Diagnosis : NSTEMI. Pre-Procedure Time Out. Identified patient by full name and date of as verbalized by the patient/guarantor. Does the consent match the physician's order: Yes. Accurate & Complete Informed Consent: Yes. Inpatient/Outpatient History & Physical on Chart: Yes. If H&P is completed, is and addenduem needed: No; If yes, is the addendum complete: N/A. Visualize and Verify Site with Patient/Guarantor: N/A. Relevant Radiology Images available: Yes. Pre-op teaching completed and patient verbalized understanding. The risks, benefits, and alternatives of sedation and/or procedure were discussed by physician. The patient agrees to continue. 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 Physician arrived. [facility] Clinical Fraility Score: 3: Managing Well. Flower Maker Indications: ACS > 24 hours. Chest Pain Symptom Assessment: Typical Angina Symptoms. Correct patient, site and procedure confirmed by cath team. Current diagnosis: NSTEMI. PERRLA. Strong, equal hand city bailiff bilaterally. Lungs clear x 5 lobes. IV Site on Arrival: 20 gauge in the left anticubital. IV Fluids: 0.9% NaCl at KVO. 0 mL infused prior to photofinishing laboratory worker. Oxygen started at 2liters/min via nasal canula. right groin was prepped with chloroprep then draped in the usual sterile fashion. right radial was prepped with chloroprep then draped in the usual sterile fashion. Baseline sample Acquired. HR: 64 BPM. Physician scrubbed in. Immediate Pre-Procedure Time Out. Correct Patient: Yes; Correct Procedure: Yes; Correct Site: Yes; Correct Patient Position: Yes; Correct Supplies: Yes; Dried Flammable Prep: Yes; Blood Products Available: N/A;. Lidocaine 1% infiltrated to the right radial. Arterial access obtained. A 5 [place] TIG catheter in over wire. ACT drawn. Results 156 seconds. Therapeutic limits - pre-heparin administration 90-150 seconds and monitoring heparin during a vascular procedure >250 seconds. Multiple views taken of left coronary artery. Dr. Adkins called to review films. Catheter removed over the exchange wire. A 5 [place] JR4 catheter in over wire. Multiple views taken of right coronary artery. Catheter removed over the exchange wire. A 5 [place] Angled Pig catheter in over wire. EDP Sample taken: LV 136/-2,19; HR: 83 BPM; SpO2: 96%. LV gram performed in ZARCO @ 10 mL/second for a total of 30 mL. EDP Sample taken: LV 124/-1,18; HR: 75 BPM; SpO2: 96%. Pullback taken: LV 122/-1,17; AO 128/65(90); Mean: 0mmHg, Peak to Peak: 0mmHg, SEP: 6sec/min; HR: 78 BPM; SpO2: 96%. Catheter removed over the exchange wire. Dr. Holbrook scrubbed out. Dr. Adkins scrubbed in. [place] guidewire was advanced through the guide catheter to lesion in the mid LAD. Inflation number : 1 A AB TREK 2.50X12 RX BALLOON was prepped and advanced across the Mid LAD , then inflated to 8 YVETTE for 0:22 seconds. Balloon out. Inflation Number : 2 A MDT R SHWETA 2.75X15 LEXIE -Lot Number# _[id number] EXP: 03/10/2026 was prepped and advanced across the Mid LAD. The stent was deployed at 15 YVETTE for 0:32 seconds. Stent balloon and wire out. IFR guidewire was advanced through the guide catheter to lesion in the 1st OM. IFR Results: 0.95. Wire redirected to the distal LAD. IFR Results: 0.82. IFR wire out. [place] guidewire was advanced through the guide catheter to lesion in the distal LAD. Inflation Number : 1 Eladia MDT R SHWETA 2.5X12 LEXIE -Lot Number# _[id number] EXP: 06/03/2026 was prepped and advanced across the Dist LAD. The stent was deployed at 12 YVETTE for 0:25 seconds. Stent balloon out over wire. Wire and guide catheter out. Results checked. A TR Band was successful obtaining hemostatsis at the Right Radial artery insertion site. Post Procedure: Pulses reassessed and unchanged. PERRLA. Strong, equal hand city bailiff bilaterally. No VTE prophylaxis required. Medication's Wasted: Lidocaine 1% = 15 mL. Medication's Wasted: Nitro = 49.8 mcg. Total IV fluids: 100 mL. Vital chart was stopped. Post-op diagnosis: CAD. Complications: None. Responsiveness - Normal response to verbal stimuli; alert and oriented, PERRLA. Estimated blood loss: 5mL-10mL. Airway - Unaffected, no intervention required; spontaneous ventilation. Circulation: W/N/L, pulses unchanged. Nausea/Vomiting: No. Procedure completed. Patient transferred by bed to 1st floor. Access Site Site: Right Radial artery Sheath Size: 6 Fr Hemostasis Method: TR Band Hemostasis Success: Successful Procedure Medications Start: 12:00 PM Stop: 12:00 PM Medication: Versed Amount: 1 mg Route: I.V. Start: 12:03 PM Stop: 12:03 PM Medication: Fentanyl Amount: 25 mcg Route: I.V. Start: 12:06 PM Stop: 12:06 PM Medication: Versed Amount: 1 mg Route: I.V. Start: 12:06 PM Stop: 12:06 PM Medication: Fentanyl Amount: 25 mcg Route: I.V. Start: 12:08 PM Stop: 12:08 PM Medication: Nitrogylcerin Amount: 200 mcg Route: I.A. Start: 12:08 PM Stop: 12:08 PM Medication: Verapamil Amount: 5 mg Route: I.A. Start: 12:17 PM Stop: 12:17 PM Medication: Heparin Amount: 4000 units Route: I.V. Start: 12:21 PM Stop: 12:21 PM Medication: Fentanyl Amount: 25 mcg Route: I.V. Start: 12:35 PM Stop: 12:35 PM Medication: Versed Amount: 1 mg Route: I.V. Start: 12:47 PM Stop: 12:47 PM Medication: Heparin Amount: 2000 units Route: I.V. Start: 1:05 PM Stop: 1:05 PM Medication: Fentanyl Amount: 25 mcg Route: I.V. Start: 1:09 PM Stop: 1:09 PM Medication: Versed Amount: 1 mg Route: I.V. I, the attending physician, have reviewed and verified all procedure medications. Yes, all medications given per verbal order History/Risk Factors Hypertension: Yes Dyslipidemia: Yes Peripheral Arterial Disease (PAD): No Myocardial Infarction (OR): No Obesity: No Renal Disease: No Tobacco Use: Current/Recent(w/in 1 year) Prior Interventions PCI: No CABG: No Valve Surgery: No Report Signatures Diagnostic Workflow Finalized by Dr Alicia Holbrook MD [facility] on 10/22/2023 03:25 PM Interventional Workflow Finalized by Dr. Max Adkins MD on 10/22/2023 01:29 PM
[2023-10-22 06:34] LABS: Basophils # 0.1 10^3/uL (0.0-0.1); Basophils % 0.6 %; Eosinophils # 0.1 10^3/uL (0.0-0.8); Eosinophils % 1.5 %; Hematocrit 44.7 % (37-53); Lymphocytes # 1.7 10^3/uL (0.8-4.8); Lymphocytes % 18.6 %; Mean Corpuscular HGB Conc 34.2 g/dL (30-55); Mean Corpuscular Hemoglobin 31.4 pg (27-33); Mean Corpuscular Volume 91.6 fl (82-101); Mean Platelet Volume 10.2 fL (7.4-10.4); Monocytes % 11.1 %; Neutrophils # 6.07 10^3/uL (1.8-7.7); Neutrophils % 68.1 %; Nucleated Red Blood Cells % 0 %; Platelet Count 216 10^3/cmm (157-399); Red Blood Count 4.88 10^6/uL (3.85-5.65); Red Cell Distribution Width 13.2 % (12.1-15.1); White Blood Count 8.91 10^3/uL (3.29-11.43)
[2023-10-22 06:56] LABS: Alanine Aminotransferase 23 U/L (0-41); Alkaline Phosphatase 63 U/L (40-130); Anion Gap 14.1 (5-19); Aspartate Amino Transferase 54 U/L (0-40); Blood Urea Nitrogen 11 mg/dL (8-23); Calcium 8.9 mg/dL (8.5-10.5); Carbon Dioxide 23 mmol/L (22-29); Chloride 104 mmol/L (98-107); Creatinine Clr Calc Pharmacy 111.6739; Globulin 2.7 g/dL (1.3-4.6); Glomerular Filtration Rate 85.5 mL/min (90-130); Glucose 98 mg/dL (65-115); Magnesium 1.8 mg/dL (1.7-2.3); Osmolality Calculated 283 mOsm/kg (285-295); Potassium 4.1 mmol/L (3.5-5.1); Sodium 137 mmol/L (136-145); Total Bilirubin 0.7 mg/dL (0.15-1.2); Total Protein 6.7 g/dL (6.6-8.7)
[2023-10-22 07:00] LABS: Chol HDL Ratio 6.02 mg/dL (1.0-5.00); Cholesterol 259 mg/dL (0-200); HDL Cholesterol 43 mg/dL (60-100); LDL Cholesterol Calculated 183 mg/dL (50-129); LDL HDL Ratio 4.26 RATIO (0.00-3.22); Triglycerides 167 mg/dL (0-150)
[2023-10-22] MEDS: heparin 5,000 unit/mL INJ 1 mL IV (07:09)
[2023-10-22] MEDS: aspirin 325 mg EC Tablet PO (08:01)
[2023-10-22] MEDS: pantoprazole DR 40 mg Tablet PO (08:01)
[2023-10-22] MEDS: atorvastatin 40 mg Tablet PO (08:01)
[2023-10-22] MEDS: lisinopril 5 mg Tablet PO ×2 (08:01→15:58)
[2023-10-22] MEDS: clopidogrel 75 mg Tablet PO (08:01)
--- NOTE | 2023-10-22 08:13 | PM.PN ---
Documented by User: SARA Pitts STDROSEANNA 10/22/23 08:25 Subjective Subjective: Mr. Sommers reports feeling better today, and denies having any chest pain. He reports some pain in his neck. He also reports mild nausea, which was resolved with PRN ondansetron. He reports no other concerns today. He is aware that he will be going for cardiac catherization today, which may involve stenting. Medications: Reviewed: Yes Vitals/I&O/Wt Last Vital Signs Temp 97.5 F L 10/22/23 07:58 Pulse 59 L 10/22/23 07:58 Resp 19 H 10/22/23 07:58 BP 159/75 10/22/23 07:58 Pulse Ox 96 10/22/23 07:58 O2 Del Method Room Air 10/22/23 03:17 10/21/23 10/22/23 10/22/23 22:59 06:59 14:59 Intake Total 183.79 / 183.79 305.40 / 489.19 98.75 / 98.75 Output Total 500 / 500 500 / 1000 Balance -316.21 / -316.21 -194.60 / -510.81 98.75 / 98.75 Weight last 48 hrs Weight 231 lb 14.4 oz Weight 190 lb Weight 190 lb Physical Exam Narrative: General: Awake, alert, and comfortable appearing gentleman, lying in bed. Conversing appropriately. HEENT: Head atraumatic, normocephalic to visual inspection, PERRL, no conjunctival injection or icterus noted, mouth adentous. CV: Regular rate and rhythm, normal S1/S2 noted, no murmurs, rubs, or gallops noted. Pulm: Lungs clear to auscultation bilaterally. GI: Abdomen soft, nontender, bowel sounds present. Extremities: capillary refill <2 seconds, +2 pulses bilaterally in upper and lower extremities, no edema noted. Data 10/22/23 06:05 10/22/23 06:05 Other Labs: Laboratory Last Values WBC 11.13 10^3/uL (3.29-11.43) 10/21/23 06:31 RBC 4.89 10^6/uL (3.85-5.65) 10/21/23 06:31 Hgb 15.10 g/dL (11.27-16.99) 10/21/23 06:31 Hct 44.4 % (37-53) 10/21/23 06:31 MCV 90.8 fl (82-101) 10/21/23 06:31 MCH 30.9 pg (27-33) 10/21/23 06:31 MCHC 34.0 g/dL (30-55) 10/21/23 06:31 RDW 13.1 % (12.1-15.1) 10/21/23 06:31 Plt Count 232 10^3/cmm (157-399) 10/21/23 06:31 MPV 9.8 fL (7.4-10.4) 10/21/23 06:31 Neut % (Auto) 76.1 % 10/21/23 06:31 Lymph % (Auto) 12.2 % 10/21/23 06:31 [place] % (Auto) 9.4 % 10/21/23 06:31 Eos % (Auto) 1.3 % 10/21/23 06:31 Baso % (Auto) 0.6 % 10/21/23 06:31 Neut # (Auto) 8.47 10^3/uL (1.8-7.7) H 10/21/23 06:31 Lymph # (Auto) 1.4 10^3/uL (0.8-4.8) 10/21/23 06:31 [place] # (Auto) 1.1 10^3/uL (0.2-0.9) H 10/21/23 06:31 Eos # (Auto) 0.1 10^3/uL (0.0-0.8) 10/21/23 06:31 Baso # (Auto) 0.1 10^3/uL (0.0-0.1) 10/21/23 06:31 Nucleated RBC % (auto) 0 % 10/21/23 06:31 Nucleated RBCs # 0.0 /100WBC 10/21/23 06:31 D-Dimer 0.42 ug/mLFEU (0-0.59) 10/21/23 06:31 Sodium 139 mmol/L (136-145) 10/21/23 06:31 Potassium 3.6 mmol/L (3.5-5.1) 10/21/23 06:31 Chloride 104 mmol/L (98-107) 10/21/23 06:31 Carbon Dioxide 24 mmol/L (22-29) 10/21/23 06:31 Anion Gap 14.6 (5-19) 10/21/23 06:31 BUN 15 mg/dL (8-23) 10/21/23 06:31 Creatinine 1.0 mg/dL (0.7-1.2) 10/21/23 06:31 GFR Calculation 75.7 mL/min (90-130) L 10/21/23 06:31 Glucose 108 mg/dL (65-115) 10/21/23 06:31 Calculated Osmolality 289 mOsm/kg (285-295) 10/21/23 06:31 Calcium 8.9 mg/dL (8.5-10.5) 10/21/23 06:31 Total Bilirubin 0.4 mg/dL (0.15-1.2) 10/21/23 06:31 AST 54 U/L (0-40) H 10/21/23 06:31 ALT 23 U/L (0-41) 10/21/23 06:31 Alkaline Phosphatase 61 U/L (40-130) 10/21/23 06:31 Troponin T Baseline 396 ng/L (0-15) H* 10/21/23 06:31 Troponin T 120 Minute 411.2 ng/L (0-15) H 10/21/23 08:11 Delta Troponin T 15.2 ABS# (0-10) H* 10/21/23 08:11 Total Protein 6.9 g/dL (6.6-8.7) 10/21/23 06:31 Albumin 4.0 g/dL (3.5-5.2) 10/21/23 06:31 Globulin 2.9 g/dL (1.3-4.6) 10/21/23 06:31 TSH 2.84 uIU/mL (0.27-4.20) 10/21/23 06:31 EKG 1: My Interpretation: EKG showed sinus bradycardia with a rate of [address]-T changes in leads V1 to V4. Small Q waves in the inferior and anterolateral leads. Other data: The chest x-ray revealed normal cardiac silhouette with no lung infiltrates. No acute pathology noted. A&P Assessment and plan (1) Non-ST elevation LA (NSTEMI): Patient presents with a non-ST elevation myocardial infarction. This is likely been progressing since Wednesday. He ireceived 325 mg of aspirin per EMS services He is receiving 600 mg of Plavix, initiation of a heparin drip, initiation of a nitroglycerin drip per ER Cardiology consult appreciated - cardiology planning cardiac cath today with possible stenting. TSH - 2.84 normal Echocardiogram Lipids: LDL - 183, HDL - 43, TG - 167, Total Cholesterol - 259 - patient started on statin therapy. Continue aspirin, Plavix, add statin. Continue heparin Not a candidate for low-dose beta-claire secondary to bradycardia Serial troponins: -Baseline: 396 -120 minute: 411 -6 hour: 459 Plan Chronic neck and back pain Coding Level of Care Code 24849 Diagnoses Non-ST elevation LA (NSTEMI) I21.4 Time Spent (min) 24 Documented by User: Tato Benito MD 10/22/23 09:43 Data 10/22/23 06:05 10/22/23 06:05 A&P Assessment and plan (1) Non-ST elevation LA (NSTEMI): Patient presents with a non-ST elevation myocardial infarction. This is likely been progressing since Wednesday. He ireceived 325 mg of aspirin per EMS services He is receiving 600 mg of Plavix, initiation of a heparin drip, initiation of a nitroglycerin drip per ER Cardiology consult appreciated - cardiology planning cardiac cath today with possible stenting. TSH - 2.84 normal Echocardiogram shows EF around 45%, grade 1/4 diastolic dysfunction. Mild pulmonary valve regurgitation. Moderate hypokinesis apical, anterior septum, apical inferior and inferior wall Lipids: LDL - 183, HDL - 43, TG - 167, Total Cholesterol - 259 - patient started on statin therapy. Continue aspirin, Plavix, add statin. Continue heparin Not a candidate for low-dose beta-claire secondary to bradycardia Serial troponins: -Baseline: 396 -120 minute: 411 -6 hour: 459 Currently still on a heparin drip requiring frequent blood Claudio, platelet monitoring, PTT monitoring. Lisinopril added by cardiology, secondary to diminished EF in face of non-ST elevation myocardial infarction. Blood pressure tolerating well. Increase medicine as tolerated. Attestations Medical Necessity Statement*: Needs continued hospitalization for definitive investigation of non-ST elevation myocardial infarction. Diagnoses Non-ST elevation LA (NSTEMI) I21.4 Time Spent (min) 24
--- NOTE | 2023-10-22 09:21 | PC.CHAP ---
Pastoral Care Encounter/Spiritual Assessment Type of Contact [] Declined waterside worker visit [] Patient/Family/Request visit [] Outpatient visit [] Follow-up visit [] Physician referral [] Code/Alert [x] Routine visit [] Staff referral [] Actively dying [] Patient sleeping [] Family support [] [] Out of room [] Palliative care [] [] Receiving care in room [] Pre-surgical visit [] Trauma [] Long length of stay [] ICU visit [] Other: Relational/Emotional Strength [x] Patient feels connected with others/family/visitors/staff [] Distress [] Loneliness/isolation [] Abandonment Spirituality of Patient [x] Person of [place] [] Attends Caodaism of their [place] x] Believes in Prayer [] Reads Bible or Lutheran materials [] There are Spiritual issues to be addressed Car Salesman Interventions [x] Prayer [x] Active listening [] Non-anxious presence [x] Spiritual/emotional support [] Crisis/trauma care [] Spiritual counseling [] Bereavement support [] Provided bereavement packet [] Provided Bible/devotional materials [] Provided toy/stuffed animal, coloring book to patient or family member [] Provided Communion [] Anointing/[place] [] Salvation [x] Completed spiritual assessment [] Other: Impact on Illness or Injury [] Angry [] Fearful [] Anxious [] Often cries [] Exhaustion [] Unable to work [] Unable to attend buddhism [] Unable to walk/stand [] Unable to read [] Unable to drive [] Unable to eat/drink [] Unable to sleep [] Unable to be with family [] Patient intubated [] Other: Summary Time spent with patient 5 min
--- NOTE | 2023-10-22 09:45 | PM.PN ---
Subjective Subjective: Patient is feeling okay. Has not had any recurrence of chest pain since last night. The vitals are stable. Remains afebrile. Echocardiogram revealed multiple wall motion abnormalities with a diminished ejection fraction of 45% Medications: Medication Review Details: Current Medications Acetaminophen (Acetaminophen 325 Mg Tablet) 650 mg PO Q6H PRN PRN Reason: Mild/Mod Pain Or Temp >/= 101 Aspirin (Aspirin 325 Mg Ec Tablet) 325 mg PO DAILY [facility] Last Admin: 10/22/23 08:01 Dose: 325 mg Atorvastatin Calcium (Atorvastatin 40 Mg Tablet) 40 mg PO DAILY [facility] Last Admin: 10/22/23 08:01 Dose: 40 mg Clopidogrel Bisulfate (Clopidogrel 75 Mg Tablet) 75 mg PO DAILY [facility] Last Admin: 10/22/23 08:01 Dose: 75 mg Diphenhydramine HCl (Diphenhydramine 50 Mg Capsule) 50 mg PO ONCE ONE Stop: 10/22/23 11:01 Heparin Sodium (Porcine) (Heparin 5,000 Unit/Ml Inj 1 Ml) 0 unit IV PRN PRN; Protocol PRN Reason: Heparin weight-base protocol Last Admin: 10/22/23 07:09 Dose: 1,700 unit Heparin Sodium/Sodium Chloride (Heparin Drip) 25,000 unit in 500 mls @ 0 mls/hr IV .Q0M [facility]; Protocol Last Titration: 10/22/23 07:09 Dose: 15.66 unit/kg/hr, 27 mls/hr Nitroglycerin/Dextrose (Nitroglycerin Drip) 50 mg in 250 mls @ 0 mls/hr IV .Q0M [facility]; Protocol Last Titration: 10/22/23 03:24 Dose: 10 mcg/min, 3 mls/hr Sodium Chloride (Sodium Chloride 0.9%) 1,000 mls @ 50 mls/hr IV .Q20H [facility] Lisinopril (Lisinopril 5 Mg Tablet) 5 mg PO DAILY [facility] Last Admin: 10/22/23 08:01 Dose: 5 mg Morphine Sulfate (Morphine 4 Mg/Ml Sdv 1 Ml) 2 mg IVP Q4H PRN PRN Reason: SEVERE PAIN Last Admin: 10/22/23 03:09 Dose: 2 mg Ondansetron HCl (Ondansetron 2 Mg/Ml Sdv 2 Ml) 4 mg IVP Q6H PRN PRN Reason: vomiting, or N/V if npo Pantoprazole Sodium (Pantoprazole Dr 40 Mg Tablet) 40 mg PO DAILY [facility] Last Admin: 10/22/23 08:01 Dose: 40 mg Vitals/I&O/Wt Last Vital Signs Temp 97.5 F L 10/22/23 07:58 Pulse 59 L 10/22/23 07:58 Resp 19 H 10/22/23 07:58 BP 159/75 10/22/23 07:58 Pulse Ox 96 10/22/23 07:58 O2 Del Method Room Air 10/22/23 03:17 10/21/23 10/22/23 10/22/23 22:59 06:59 14:59 Intake Total 183.79 / 183.79 305.40 / 489.19 218.75 / 218.75 Output Total 500 / 500 500 / 1000 Balance -316.21 / -316.21 -194.60 / -510.81 218.75 / 218.75 Weight last 48 hrs Weight 231 lb 14.4 oz Weight 190 lb Weight 190 lb Physical Exam Narrative: GENERAL: The patient is alert and oriented times three. Not in any acute distress. HEENT: No significant pallor, icterus or lymphadenopathy.Oral cavity: There are no mucous membrane lesions. NECK: Trachea appears to be central. No masses noted. No JVD or thyromegaly appreciated. RESPIRATORY: Chest is symmetrical. No intercostals muscle retraction or any accessory muscle activation. There is no chest wall tenderness. Breath sounds are heard bilaterally. No rales or rhonchi heard. No evidence of any consolidation. BREASTS: Deferred. HEART: The heart sounds are normal. No S3 or S4. No significant murmurs. No pericardial rub ABDOMEN: No vessel pulsations or distention. No tenderness. No organomegaly appreciated. Bowel sounds are normally heard. : Deferred. RECTAL: Deferred. LYMPHATIC: No lymphadenopathy noted in the neck. EXTREMITIES: No edema or cyanosis. No clubbing. MUSCULOSKELETAL: No acute joint deformities or swelling SKIN: There are no significant rashes or ecchymosis NEUROPSYCHIATRIC: The patient is alert and oriented x3. Appears to be in a good mood. No tremors or rigidity noted. Data 10/22/23 06:05 10/22/23 06:05 Other Labs: Laboratory Last Values WBC 8.91 10^3/uL (3.29-11.43) 10/22/23 06:05 RBC 4.88 10^6/uL (3.85-5.65) 10/22/23 06:05 Hgb 15.30 g/dL (11.27-16.99) 10/22/23 06:05 Hct 44.7 % (37-53) 10/22/23 06:05 MCV 91.6 fl (82-101) 10/22/23 06:05 MCH 31.4 pg (27-33) 10/22/23 06:05 MCHC 34.2 g/dL (30-55) 10/22/23 06:05 RDW 13.2 % (12.1-15.1) 10/22/23 06:05 Plt Count 216 10^3/cmm (157-399) 10/22/23 06:05 MPV 10.2 fL (7.4-10.4) 10/22/23 06:05 Neut % (Auto) 68.1 % 10/22/23 06:05 Lymph % (Auto) 18.6 % 10/22/23 06:05 [place] % (Auto) 11.1 % 10/22/23 06:05 Eos % (Auto) 1.5 % 10/22/23 06:05 Baso % (Auto) 0.6 % 10/22/23 06:05 Neut # (Auto) 6.07 10^3/uL (1.8-7.7) 10/22/23 06:05 Lymph # (Auto) 1.7 10^3/uL (0.8-4.8) 10/22/23 06:05 [place] # (Auto) 1.0 10^3/uL (0.2-0.9) H 10/22/23 06:05 Eos # (Auto) 0.1 10^3/uL (0.0-0.8) 10/22/23 06:05 Baso # (Auto) 0.1 10^3/uL (0.0-0.1) 10/22/23 06:05 Nucleated RBC % (auto) 0 % 10/22/23 06:05 Nucleated RBCs # 0.0 /100WBC 10/22/23 06:05 APTT 52.0 SECONDS (23.9-36.7) H 10/22/23 06:05 D-Dimer 0.42 ug/mLFEU (0-0.59) 10/21/23 06:31 Sodium 137 mmol/L (136-145) 10/22/23 06:05 Potassium 4.1 mmol/L (3.5-5.1) 10/22/23 06:05 Chloride 104 mmol/L (98-107) 10/22/23 06:05 Carbon Dioxide 23 mmol/L (22-29) 10/22/23 06:05 Anion Gap 14.1 (5-19) 10/22/23 06:05 BUN 11 mg/dL (8-23) 10/22/23 06:05 Creatinine 0.9 mg/dL (0.7-1.2) 10/22/23 06:05 GFR Calculation 85.5 mL/min (90-130) L 10/22/23 06:05 Glucose 98 mg/dL (65-115) 10/22/23 06:05 Calculated Osmolality 283 mOsm/kg (285-295) L 10/22/23 06:05 Calcium 8.9 mg/dL (8.5-10.5) 10/22/23 06:05 Magnesium 1.8 mg/dL (1.7-2.3) 10/22/23 06:05 Total Bilirubin 0.7 mg/dL (0.15-1.2) 10/22/23 06:05 AST 54 U/L (0-40) H 10/22/23 06:05 ALT 23 U/L (0-41) 10/22/23 06:05 Alkaline Phosphatase 63 U/L (40-130) 10/22/23 06:05 Troponin T Baseline 396 ng/L (0-15) H* 10/21/23 06:31 Troponin T 120 Minute 411.2 ng/L (0-15) H 10/21/23 08:11 Delta Troponin T 15.2 ABS# (0-10) H* 10/21/23 08:11 Troponin T Hi Sens 6Hr 459.7 ng/L (0-15) H 10/21/23 12:26 Troponin T Hi Sens 6Hr Delta 63.7 ng/L (0-12) H* 10/21/23 12:26 Total Protein 6.7 g/dL (6.6-8.7) 10/22/23 06:05 Albumin 4.0 g/dL (3.5-5.2) 10/22/23 06:05 Globulin 2.7 g/dL (1.3-4.6) 10/22/23 06:05 Triglycerides 167 mg/dL (0-150) H 10/22/23 06:05 Cholesterol 259 mg/dL (0-200) H 10/22/23 06:05 LDL Cholesterol, Calc 183 mg/dL (50-129) H 10/22/23 06:05 HDL Cholesterol 43 mg/dL (60-100) L 10/22/23 06:05 LDL/HDL Ratio 4.26 RATIO (0.00-3.22) H 10/22/23 06:05 Cholesterol/HDL Ratio 6.02 mg/dL (1.0-5.00) H 10/22/23 06:05 TSH 2.84 uIU/mL (0.27-4.20) 10/21/23 06:31 Other data: Echocardiogram from yesterday Moderate hypokinesia of the mid and apical septum, anteroseptum, apical inferior and inferolateral wall segments. Overall ejection fraction of 45%.Grade I/IV diastolic dysfunction (abnormal relaxation filling pattern), normal to mildly elevated filling pressures. Trace tricuspid valve regurgitation. Estimated pulmonary artery peak systolic pressure 28 mm Hg. Mild pulmonary valve regurgitation. There is no pericardial effusion. There are no intracardiac masses. No similar previous studies are available for comparison A&P Assessment and plan (1) Atherosclerotic heart disease of [place] coronary artery with unstable angina pectoris: Continue on the current medications. Cardiac catheterization this afternoon. Based on the results, further management decisions will be made. Qualifiers: [place] vs. transplanted heart: [place] heart Qualified Code(s): I25.110 - Atherosclerotic heart disease of [place] coronary artery with unstable angina pectoris (2) Non-ST elevation [place] (NSTEMI): The echocardiogram revealed LV ejection fraction 45%. Multiple wall motion abnormalities as mentioned above. (3) Smoking addiction: Patient strongly advised to quit smoking for (4) Dyslipidemia: Patient is started on Lipitor which may be continued. (5) Elevated blood pressure reading: Continue on the current medications For better control of blood pressure, I may add amlodipine 5 mg p.o. now and daily. Increase the lisinopril to 10 mg p.o. daily Plan For further evaluation of the patient's coronary status, he requires a cardiac catheterization. The risk of bleeding, hematoma, vascular injury, myocardial infarction, myocardial perforation, malignant cardiac arrhythmias ,CVA, renal failure and other concomitant complications were explained in detail. Patient understood this well and consented to proceed. Will go ahead and have it done today Based on the angiogram findings, further management decisions will be made Attestations Medical Necessity Statement*: Patient requires continued hospital stay for close monitoring and further management Coding Level of Care Code 39861 Diagnoses Atherosclerosis of [place] coronary artery of [place] heart with unstable angina pectoris I25.110 [place] vs. transplanted heart: [place] heart Non-ST elevation [place] (NSTEMI) I21.4 Smoking addiction F17.200 Dyslipidemia E78.5 Elevated blood pressure reading R03.0
--- NOTE | 2023-10-22 09:52 | W.PM.OPSUD ---
Surgery/Procedure H&P Update DATE OF PROCEDURE: October 22, 2023 DATE H&P PERFORMED: 10/21/23 H&P UPDATE INFORMATION: I have reviewed H&P completed within last 30 days, I have examined patient prior to procedure and No changes to prior documentation PREOP DIAGNOSIS: ASHD PRIMARY INDICATION FOR PROCEDURE: Unstable angina/non-ST elevation myocardial infarction/LV dysfunction PLANNED PROCEDURE: Operation Date: 10/22/23 12:00 Proposed Procedures p Cardiac Catheterization(Left) - Alicia Holbrook MD PATIENT REASSESSED PRIOR TO SEDATION, WITH NO CHANGE NOTED: Yes PHYSICAL EXAM: alert, oriented x 3, clear to auscultation bilaterally and regular rate & rhythm AIRWAY EVAL/ANESTHESIA PLAN: normal airway, see other exam findings, ASA III, Local Anesthesia, Risks, benefits & alternatives of sedation and/or procedure discussed and Patient agrees to continue as planned
[2023-10-22] MEDS: ondansetron 2 mg/ML SDV 2 mL 4 MG IVP (09:57)
[2023-10-22] MEDS: diphenhydrAMINE 50 mg Capsule PO (11:11)
[2023-10-22] MEDS: amlodipine 5 mg Tablet PO (11:11)
[2023-10-22] MEDS: sodium chloride 0.9% 1,000 ML 75 ML IV (14:00)
--- NOTE | 2023-10-22 19:26 | PC.NURSE ---
Patient is s/p C with right radial access. Dressing in place to site remains c,d,i with no s/s of bleeding or hematoma formation observed. Instructed patient on site and restrictions. Patient asked and answered questions appropriately. Verbalized complete understanding. Will continue to monitor.
[2023-10-22] MEDS: cyclobenzaprine 10 mg Tablet PO (22:12)
[2023-10-22] MEDS: acetaminophen 325 mg Tablet 650 MG PO (22:12)
[2023-10-23 00:55] VITALS: PULSE 49; RESP 23
[2023-10-23 04:00] VITALS: BP 133/63; PULSE 64; RESP 24; TEMP 36.6; O2SAT 97
[2023-10-23 04:17] LABS: Basophils # 0.1 10^3/uL (0.0-0.1); Basophils % 0.6 %; Eosinophils # 0.2 10^3/uL (0.0-0.8); Eosinophils % 2.1 %; Hematocrit 44.1 % (37-53); Lymphocytes # 1.7 10^3/uL (0.8-4.8); Lymphocytes % 20.9 %; Mean Corpuscular HGB Conc 33.6 g/dL (30-55); Mean Corpuscular Hemoglobin 30.8 pg (27-33); Mean Corpuscular Volume 91.9 fl (82-101); Monocytes # 1.1 10^3/uL (0.2-0.9); Monocytes % 13.5 %; Neutrophils # 5.09 10^3/uL (1.8-7.7); Neutrophils % 62.5 %; Nucleated Red Blood Cells % 0 %; Platelet Count 183 10^3/cmm (157-399); Red Cell Distribution Width 13.3 % (12.1-15.1); White Blood Count 8.14 10^3/uL (3.29-11.43)
[2023-10-23 04:45] LABS: Anion Gap 13.8 (5-19); Blood Urea Nitrogen 14 mg/dL (8-23); Calcium 8.9 mg/dL (8.5-10.5); Carbon Dioxide 23 mmol/L (22-29); Chloride 105 mmol/L (98-107); Creatinine Clr Calc Pharmacy 91.4412; Glomerular Filtration Rate 67.8 mL/min (90-130); Glucose 97 mg/dL (65-115); Osmolality Calculated 286 mOsm/kg (285-295); Potassium 3.8 mmol/L (3.5-5.1); Sodium 138 mmol/L (136-145)
[2023-10-23 05:33] VITALS: PULSE 67
[2023-10-23 07:08] VITALS: BP 109/57; PULSE 66; RESP 23; TEMP 36.4; O2SAT 96
--- NOTE | 2023-10-23 07:54 | PM.PN ---
Subjective Subjective: Meek underwent angiography yesterday. There was a near total stenosis in the mid LAD which I stented. There was a less significant stenosis in the distal LAD which was significant by IFR so this was stented as well. He had a lesion in the proximal aspect of his first marginal branch which was above the threshold for stenting so it is treated medically. He has done well overnight. Procedure done to the right radial artery. He has no complaints this morning. Vitals/I&O/Wt Last Vital Signs Temp 97.5 F L 10/23/23 07:08 Pulse 66 10/23/23 07:08 Resp 23 H 10/23/23 07:08 BP 109/57 10/23/23 07:08 Pulse Ox 96 10/23/23 07:08 O2 Del Method Room Air 10/23/23 07:08 10/22/23 10/23/23 10/23/23 22:59 06:59 14:59 Intake Total 1780 / 2171.888 150 / 2321.888 Output Total 280 / 280 250 / 530 Balance 1500 / 1891.888 -100 / 1791.888 Weight last 48 hrs Weight 232 lb 4.8 oz Weight 231 lb 14.4 oz Weight 190 lb Physical Exam Narrative: GENERAL: In general he looks and feels well HEENT: Exam within normal limits. NECK: Supple without jugular vein distention. The carotid upstroke is normal without bruits. BACK: Exam normal. LUNGS: Clear. HEART: Regular rate and rhythm. ABDOMEN: Benign without organomegaly or tenderness. EXTREMITIES: No edema. The right radial artery entry site is flat, dry without hematoma, bleeding or vascular anomaly. NEUROLOGIC: Exam normal. SKIN: Unremarkable. Data 10/23/23 03:46 10/23/23 03:46 A&P Assessment and plan (1) Non-ST elevation [place] (NSTEMI): (2) Atherosclerotic heart disease of [place] coronary artery with unstable angina pectoris: Qualifiers: [place] vs. transplanted heart: [place] heart Qualified Code(s): I25.110 - Atherosclerotic heart disease of [place] coronary artery with unstable angina pectoris (3) Smoking addiction: (4) Dyslipidemia: (5) Elevated blood pressure reading: Plan He may go home today. Follow-up with the nurse practitioner in 7 to [address] Holbrook in about 3 months. He was on a minimum of medications at home. At discharge Plavix, low-dose aspirin, Lipitor, beta-claire if he tolerates it. It appears amlodipine and lisinopril have been added which are fine. I gave him instructions not to lift anything more than 5 pounds for 2 days with his right arm. That is his only activity restriction. Attestations Medical Necessity Statement*: Discharged today and Moderate Time for a total of 30 minutes, includes reviewing past or interval history, examining/interviewing patient, counseling patient/family/other support, updating patient/family/other support, discussing plan of care with staff, communicating with other healthcare providers and documenting encounter Diagnoses Non-ST elevation [place] (NSTEMI) I21.4 Atherosclerosis of [place] coronary artery of [place] heart with unstable angina pectoris I25.110 [place] vs. transplanted heart: [place] heart Smoking addiction F17.200 Dyslipidemia E78.5 Elevated blood pressure reading R03.0
[2023-10-23] MEDS: amlodipine 5 mg Tablet PO (08:58)
[2023-10-23] MEDS: clopidogrel 75 mg Tablet PO (08:58)
[2023-10-23] MEDS: aspirin 81 mg EC Tablet PO (08:58)
[2023-10-23] MEDS: lisinopril 10 mg Tablet PO (08:58)
[2023-10-23] MEDS: atorvastatin 40 mg Tablet PO (08:58)
[2023-10-23] MEDS: pantoprazole DR 40 mg Tablet PO (08:58)
[2023-10-23 11:32] VITALS: BP 109/57; PULSE 66; RESP 23; TEMP 36.4; O2SAT 96
--- NOTE | 2023-10-23 11:33 | PM.DCS ---
Discharge Providers Date of Admission: 10/21/23 07:52 Date of Discharge: October 23, 2023 Attending Provider at Admission: Tato Benito MD Attending Provider at Discharge: Corey Patel MD Primary Care Provider: Meek Sanchez Diagnoses at Discharge Discharge Diagnosis (1) Non-ST elevation [place] (NSTEMI): Status: Acute (2) Atherosclerotic heart disease of [place] coronary artery with unstable angina pectoris: Status: Acute Qualifiers: [place] vs. transplanted heart: [place] heart Qualified Code(s): I25.110 - Atherosclerotic heart disease of [place] coronary artery with unstable angina pectoris (3) Smoking addiction: Status: Acute (4) Dyslipidemia: Status: Acute (5) Elevated blood pressure reading: Status: Acute Reason for Visit Reason for Visit: CP Hospital Course Hospital Course Meek Sommers is a 63 year old male presenting from home to the emergency department with complaints of chest discomfort. He reports chest discomfort has been going on since around Wednesday. It is off and on. He reports it is substernal, vague, radiation into left arm and left jaw. He also has some mid back pain. He reports he has had some of this discomfort previously, and some has been exertional. He thought originally it may have to do with his chronic neck and back issues. He reports no prior history of coronary disease. No recent illness. No blood in stool or black or tarry stool. No history of severe reflux or gastric ulcer. This is a 63-year-old male with a past medical history of smoking, who presents to [facility] for complaints of chest pain, underwent coronary angiography, found to have near-total stenosis in the midLAD which was stented, there was less significant stenosis in the distal LAD which was significant IFR so it was stented, he had a lesion in the proximal aspect of the first marginal branch which was above threshold for stenting, so he was treated medically, monitored for 24 hours thereafter, did well no recurrent chest pain be discharged on aspirin, Plavix, statin with close follow-up with cardio etiology as outpatient. Patient was advised if he has any recurrent chest pain to the emergency room Patient is a smoker, had extensive discussion with him about smoking cessation counseling, his risk of CAD CHF risk of cancers, COPD, morbidity and mortality associated, discussed plans on quitting, different ways to quit, he voiced understanding, all questions answered Physical Exam Const: COMMON NORMALS: no acute distress and patient oriented x3 Resp: COMMON NORMALS: normal respiratory effort, No retractions, No use of accessory muscles and clear to auscultation bilaterally AUSCULTATION: clear to auscultation bilaterally Cardio: COMMON NORMALS: regular rate, regular rhythm, S1 normal heart sound present and S2 normal heart sound present RATE: regular rate RHYTHM: regular rhythm HEART SOUNDS: S1 normal heart sound present and S2 normal heart sound present GI: COMMON NORMALS: Normal to inspection, nondistended, normoactive bowel sounds present and non-tender Extremity: COMMON NORMALS: no pedal edema Neuro: COMMON NORMALS: patient oriented x3 Psych: COMMON NORMALS: mental status grossly normal Discharge Data Studies Completed and Pending Completed Studies During Hospitalization Category Date Time Status TRIP FOLLOWER request for service Routine Exams 10/22/23 06:19 Completed XR chest 1V portable [id number] Stat Exams 10/21/23 06:12 Completed CV. echo complete* [id number] Routine Ultrasound 10/21/23 16:15 Completed Radiology Impressions Chest X-Ray 10/21/23 06:12 IMPRESSION: No acute findings. Laboratory Results WBC 8.14 10^3/uL (3.29-11.43) 10/23/23 03:46 RBC 4.80 10^6/uL (3.85-5.65) 10/23/23 03:46 Hgb 14.80 g/dL (11.27-16.99) 10/23/23 03:46 Hct 44.1 % (37-53) 10/23/23 03:46 MCV 91.9 fl (82-101) 10/23/23 03:46 MCH 30.8 pg (27-33) 10/23/23 03:46 MCHC 33.6 g/dL (30-55) 10/23/23 03:46 RDW 13.3 % (12.1-15.1) 10/23/23 03:46 Plt Count 183 10^3/cmm (157-399) 10/23/23 03:46 MPV 10.0 fL (7.4-10.4) 10/23/23 03:46 Neut % (Auto) 62.5 % 10/23/23 03:46 Lymph % (Auto) 20.9 % 10/23/23 03:46 [place] % (Auto) 13.5 % 10/23/23 03:46 Eos % (Auto) 2.1 % 10/23/23 03:46 Baso % (Auto) 0.6 % 10/23/23 03:46 Neut # (Auto) 5.09 10^3/uL (1.8-7.7) 10/23/23 03:46 Lymph # (Auto) 1.7 10^3/uL (0.8-4.8) 10/23/23 03:46 [place] # (Auto) 1.1 10^3/uL (0.2-0.9) H 10/23/23 03:46 Eos # (Auto) 0.2 10^3/uL (0.0-0.8) 10/23/23 03:46 Baso # (Auto) 0.1 10^3/uL (0.0-0.1) 10/23/23 03:46 Nucleated RBC % (auto) 0 % 10/23/23 03:46 Nucleated RBCs # 0.0 /100WBC 10/23/23 03:46 APTT 52.0 SECONDS (23.9-36.7) H 10/22/23 06:05 D-Dimer 0.42 ug/mLFEU (0-0.59) 10/21/23 06:31 Sodium 138 mmol/L (136-145) 10/23/23 03:46 Potassium 3.8 mmol/L (3.5-5.1) 10/23/23 03:46 Chloride 105 mmol/L (98-107) 10/23/23 03:46 Carbon Dioxide 23 mmol/L (22-29) 10/23/23 03:46 Anion Gap 13.8 (5-19) 10/23/23 03:46 BUN 14 mg/dL (8-23) 10/23/23 03:46 Creatinine 1.1 mg/dL (0.7-1.2) 10/23/23 03:46 GFR Calculation 67.8 mL/min (90-130) L 10/23/23 03:46 Glucose 97 mg/dL (65-115) 10/23/23 03:46 Calculated Osmolality 286 mOsm/kg (285-295) 10/23/23 03:46 Calcium 8.9 mg/dL (8.5-10.5) 10/23/23 03:46 Magnesium 1.8 mg/dL (1.7-2.3) 10/22/23 06:05 Total Bilirubin 0.7 mg/dL (0.15-1.2) 10/22/23 06:05 AST 54 U/L (0-40) H 10/22/23 06:05 ALT 23 U/L (0-41) 10/22/23 06:05 Alkaline Phosphatase 63 U/L (40-130) 10/22/23 06:05 Troponin T Baseline 396 ng/L (0-15) H* 10/21/23 06:31 Troponin T 120 Minute 411.2 ng/L (0-15) H 10/21/23 08:11 Delta Troponin T 15.2 ABS# (0-10) H* 10/21/23 08:11 Troponin T Hi Sens 6Hr 459.7 ng/L (0-15) H 10/21/23 12:26 Troponin T Hi Sens 6Hr Delta 63.7 ng/L (0-12) H* 10/21/23 12:26 Total Protein 6.7 g/dL (6.6-8.7) 10/22/23 06:05 Albumin 4.0 g/dL (3.5-5.2) 10/22/23 06:05 Globulin 2.7 g/dL (1.3-4.6) 10/22/23 06:05 Triglycerides 167 mg/dL (0-150) H 10/22/23 06:05 Cholesterol 259 mg/dL (0-200) H 10/22/23 06:05 LDL Cholesterol, Calc 183 mg/dL (50-129) H 10/22/23 06:05 HDL Cholesterol 43 mg/dL (60-100) L 10/22/23 06:05 LDL/HDL Ratio 4.26 RATIO (0.00-3.22) H 10/22/23 06:05 Cholesterol/HDL Ratio 6.02 mg/dL (1.0-5.00) H 10/22/23 06:05 TSH 2.84 uIU/mL (0.27-4.20) 10/21/23 06:31 Vitals Last Vital Signs Temp 97.5 F L 10/23/23 07:08 Pulse 66 10/23/23 07:08 Resp 23 H 10/23/23 07:08 BP 109/57 10/23/23 07:08 Pulse Ox 96 10/23/23 07:08 O2 Del Method Room Air 10/23/23 07:08 Discharge Plan Discharge Patient Disposition: Home Condition: Stable Prescriptions: New amlodipine 5 mg Tablet 5 mg PO DAILY 30 Days Qty: 30 0RF aspirin 81 mg Tablet,Delayed Release (Dr/Ec) 81 mg PO DAILY 30 Days Qty: 30 0RF atorvastatin 40 mg Tablet 40 mg PO DAILY 30 Days Qty: 30 0RF clopidogrel 75 mg Tablet 75 mg PO DAILY 30 Days Qty: 30 0RF lisinopril 10 mg Tablet 10 mg PO DAILY 30 Days Qty: 30 0RF nitroglycerin 0.4 mg Tablet, Sublingual 0.4 mg sublingual Q5M PRN (Reason: Chest Pain) 30 Days Qty: 30 0RF Continued multivitamin Tablet 1 tab PO DAILY Tylenol Ex Str Rapid Release 500 mg Tablet 1,000 - 1,500 mg PO Q6H PRN (Reason: Pain) Discharge Orders: Discharge Order (Routine); Ordered 10/23/23 Ordered By: Corey Patel Referrals: Meek Sanchez [Primary Care Provider] - 10/25/23 10:20 am Makayla Jaramillo FNP [Nurse Practitioner] - 11/08/23 2:30 pm Discharge Diet: Cardiac Discharge Activity: Resume usual activity Patient Instructions: Lisinopril (By mouth) (Prinivil, Zestril), Aspirin (By mouth) (Nate Extra Strength, Nate Aspirin [facility],..., Amlodipine (By mouth) (Hypertenipine-2.5, Norvasc, Norliqva), Nitroglycerin, Rapid Release (By mouth) (NitroMist, Nitrolingual,..., Atorvastatin (By mouth) (Lipitor, Atorvaliq), Clopidogrel (By mouth) (Plavix), How to Stop Smoking (DC), Cigarette Smoking and Your Health (GEN), Coronary Angioplasty (DC), Electronic Cigarettes and Your Health (ED), Opioid Safety, Post Angiogram Home Care Instructions, Post Heart Attack Stoplight Activity Restrictions/Additional Instructions: - Please quit smoking, smoking will increase your risk of heart disease, stroke, poor wound healing, poor healing, COPD, CHF, cancers ? Please continue aspirin and Plavix and do not stop taking these medications, as they are keeping your cardiac stents open ? If you develop bloody or black stools please go to the emergency room ? Please see primary care provider for blood pressure check ? If any recurrent chest pain go to the emergency room Discharge Attestations Time Spent in Discharge Care*: greater than 30 min Time Spent in Smoking Cessation: more than 10 minutes Quality Metrics Clinical Quality Measures [ Acute Myocardial Infaction { Clinical Trial Participant: No; Contraindication to aspirin: None; Aspirin prescribed; Contraindication to statin: None; Statin prescribed; Contraindication to PCI: None; PCI performed;}] Coding Level of Care Code 82222 Total time (in minutes) for Discharge: 45 Diagnoses Non-ST elevation [place] (NSTEMI) I21.4 Atherosclerosis of [place] coronary artery of [place] heart with unstable angina pectoris I25.110 [place] vs. transplanted heart: [place] heart Smoking addiction F17.200 Dyslipidemia E78.5 Elevated blood pressure reading R03.0
== END 2023-10-23 12:04 | disposition home or self-care (01) | DRG 322 ==
LOC: ER 07:52 → CSU 08:24
PROVIDERS: Internal Medicine Cardiovascular Disease; Admitting Provider Internal Medicine; Emergency Provider Family Medicine; PCP Family Medicine; Visit Provider Family Medicine
PROC: 027035Z Dilation of Coronary Artery, One Artery with Two Drug-eluting Intraluminal Devices, Percutaneous Approach (ICD-10-PCS; principal; 2023-10-22 12:00)
DX: I21.4 Non-ST elevation (NSTEMI) myocardial infarction (principal); Z96.82 Presence of neurostimulator; F17.210 Nicotine dependence, cigarettes, uncomplicated; I25.110 Atherosclerotic heart disease of native coronary artery with unstable angina pectoris; E78.5 Hyperlipidemia, unspecified; R03.0 Elevated blood-pressure reading, without diagnosis of hypertension
CPT/HCPCS: 36415; 71045; 80048; 80053; 80061; 83735; 84443; 84484; 85025; 85347; 85378; 85730; 93005; 93306; 93458; 93571; 93572; 96365; 96367; 96374; 96375; 96376; 99152; 99153; 99285; C1725; C1769; C1874; C1876; C1887; C1894; C9600; J1644; J2250; J2270; J2405; J3010; J3490; J7030; Q0163; Q9967

== ENCOUNTER → 2023-11-08 14:04 | Outpatient (BNVA) | payer MEDICARE, SELFPAY | PROVIDERS: PCP Family Medicine; Visit Provider Nurse Practitioner Family | DX: I25.110 Atherosclerotic heart disease of native coronary artery with unstable angina pectoris (principal); Z87.891 Personal history of nicotine dependence | CPT/HCPCS: 99214 ==

== ENCOUNTER → 2024-01-11 09:52 | Outpatient (BNVA) | payer MEDICARE, SELFPAY | PROVIDERS: PCP Family Medicine; Visit Provider Internal Medicine Cardiovascular Disease | DX: I25.110 Atherosclerotic heart disease of native coronary artery with unstable angina pectoris (principal); F17.200 Nicotine dependence, unspecified, uncomplicated; E78.5 Hyperlipidemia, unspecified; I10 Essential (primary) hypertension | CPT/HCPCS: 99214 ==

== ENCOUNTER → 2024-01-24 15:22 | Outpatient (BNVA) | payer MEDICARE, SELFPAY | PROVIDERS: PCP Family Medicine; Visit Provider Podiatrist Foot & Ankle Surgery | DX: Q82.8 Other specified congenital malformations of skin; M79.671 Pain in right foot; M79.672 Pain in left foot | CPT/HCPCS: 99213 ==

== ENCOUNTER → 2024-04-27 08:10 | Outpatient (BNVA) | payer MEDICARE, SELFPAY | PROVIDERS: PCP Family Medicine; Visit Provider Orthopaedic Surgery | DX: M54.9 Dorsalgia, unspecified (principal) | CPT/HCPCS: 72110; 99214 ==

== ENCOUNTER 2024-05-16 12:36 | Outpatient (CLI) | payer MEDICARE, SELFPAY ==
--- NOTE | 2024-05-16 13:00 | MR_ITS ---
WS: [id number] MRI LUMBAR SPINE NONCONTRAST TECHNIQUE: Sagittal T1, T2 and STIR imaging. Axial T1 and T2 imaging. CLINICAL INFORMATION: Back Pain COMPARISON: 08/28/2022 FINDINGS: Mild lumbar curve. No acute compression. No high-grade central canal stenosis. L1-L2: Mild annular bulging. Slight narrowing of the RIGHT subarticular recess. Mild facet arthropath y. Spinal canal and foramen are patent. L2-L3: Mild annular bulging. Slight narrowing of the subarticular recess RIGHT greater than LEFT. Mod erate facet arthropathy. Foramen are patent. L3-L4: Mild annular bulging. Slight narrowing of the RIGHT subarticular recess. Disc bulging has impr negrito slightly at this level compared to previous. Moderate facet arthropathy. Foramen are patent. L4-L5: Mild annular bulging. Moderate facet arthropathy. Spinal canal and foramen are patent. L5-S1: RIGHT hemilaminectomy with partial discectomy. Mild residual RIGHT foraminal narrowing. Slight narrowing at the RIGHT subarticular recess. Moderate facet arthropathy. Visualized pelvic bony structures: Normal. Paravertebral soft tissues: Normal. Slightly ectatic distal abdominal aorta measuring 2.5 x 2.7 cm MR/MR lumbar spine wo con* [id number] IMPRESSION: 1. Interval postoperative changes RIGHT hemilaminectomy and partial discectomy . Mild residual RIGHT foraminal narrowing. Spinal canal is patent. 2. Narrowing of the RIGHT L1-L2, RIGHT L2-3, and RIGHT L3-4 subarticular reces s similar to previous. Disc bulging at L3-4 has improved slightly compared to p revious. 3. Moderate facet arthropathy L3-L5.
== END 2024-05-16 12:37 | disposition home or self-care (01) ==
LOC: RAD 12:37
PROVIDERS: PCP Family Medicine; Visit Provider Orthopaedic Surgery
DX: M47.896 Other spondylosis, lumbar region (principal); M47.898 Other spondylosis, sacral and sacrococcygeal region; Z98.890 Other specified postprocedural states
CPT/HCPCS: 72148

== ENCOUNTER → 2024-05-30 12:33 | Outpatient (BNVA) | payer MEDICARE, SELFPAY | PROVIDERS: PCP Family Medicine; Visit Provider Podiatrist Foot & Ankle Surgery | DX: Q82.8 Other specified congenital malformations of skin | CPT/HCPCS: 99213 ==

== ENCOUNTER 2024-06-03 08:05 | Emergency (ER) | payer MEDICARE, SELFPAY ==
[2024-06-03 08:16] VITALS: BP 175/71; PULSE 90; RESP 18; TEMP 37.1; O2SAT 98; BMI 25.7
--- NOTE | 2024-06-03 08:35 | ED_ITS ---
HPI - Male Genitourinary 2 General: Chief complaint: Urogenital-Male Stated complaint: fever, no appt, cant pee or poop, Time Seen by Provider: 06/03/24 08:07 History of Present Illness: 64-year-old male presents emergency room complaining of difficulty with urination and defecation. States it began yesterday has had some dysuria. No fever sweats or chills. No significant abdominal pain. He has not had any hematuria. No history of renal stones no fever sweats or chills Associated symptoms: Deny dysuria Related Data Home Medications Medication Instructions Recorded Confirmed acetaminophen 500 mg tablet 1,000 - 1,500 mg PO Q6H PRN Pain 10/21/23 06/03/24 multivitamin 1 tab PO DAILY 10/21/23 06/03/24 Tumeric Complex 1 cap PO DAILY 06/03/24 06/03/24 Previous Rx's Medication Instructions Recorded aspirin 81 mg tablet,delayed 81 mg PO DAILY #90 tabs 11/08/23 release clopidogrel 75 mg tablet 75 mg PO DAILY #90 tabs 11/11/23 losartan 25 mg tablet 50 mg (2 x 25 mg) PO DAILY #60 tabs 11/23/23 nitroglycerin 0.4 mg sublingual 0.4 mg sublingual Q5M PRN chest 11/24/23 tablet pain #30 tabs hydrocodone 5 mg-acetaminophen 325 1 tab PO Q6H PRN pain 5 days #20 05/01/24 mg tablet tabs cefdinir 300 mg capsule 300 mg PO BID 10 days #20 caps 06/03/24 hydrocodone 5 mg-acetaminophen 325 1 tab PO Q6H PRN pain #2 tabs 06/03/24 mg tablet promethazine 25 mg tablet 25 mg PO Q6H PRN nausea and 06/03/24 vomiting #20 tabs tamsulosin 0.4 mg capsule 0.4 mg PO DAILY #14 caps 06/03/24 Allergies Allergy/AdvReac Type Severity Reaction Status Date / Time amlodipine Allergy ADR-Chest Verified 05/30/24 12:36 Pain lisinopril AdvReac Severe ADR-Cough Verified 05/30/24 12:36 Review of Systems 2 Const: Denies: fever(s) or chills Card: Denies: chest pain Resp: Denies: dyspnea GI: Denies: abdominal pain : Denies: dysuria, urinary frequency or urinary urgency Musc: Denies: neck pain or back pain Skin/Breast: Denies: rash PFSH ED 2 PFSH: Medical History (Updated 06/03/24 @ 10:44 by Darnell Hussein DO) Intervertebral disc disorders with radiculopathy, 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 Yana Keene pain management. Thoracic spinal cord stimulator placement (08/13/2009). Malfunction of spinal cord stimulator Family History Father Cancer Mother Heart disease Hypertension Social History Smoking and tobacco/nicotine status: unknown if used tobacco/nicotine Alcohol intake: never Substance/Drug Use: never Household members: spouse Marital status: Current occupational status: retired Physical Exam 2 Const: COMMON NORMALS: no acute distress GENERAL APPEARANCE: cooperative and comfortable ORIENTATION/CONSCIOUSNESS: Yes awake, Yes oriented to person, Yes oriented to place and Yes oriented to time HENMT: COMMON NORMALS: normocephalic, atraumatic and hearing grossly normal bilaterally HEAD & SCALP: normocephalic and atraumatic Resp: COMMON NORMALS: normal respiratory effort, No retractions, No use of accessory muscles and clear to auscultation bilaterally AUSCULTATION: clear to auscultation bilaterally Cardio: COMMON NORMALS: regular rate, regular rhythm and No murmurs present (Cardio) RATE: regular rate RHYTHM: regular rhythm GI: COMMON NORMALS: Soft to palpation and No hepatosplenomegaly present A USCULTATION: Yes normoactive bowel sounds PALPATION: Yes Soft to palpation, No Tenderness to palpation present (GI), No Guarding due to palpation present (GI) and Yes No hepatosplenomegaly present Extremity: COMMON NORMALS: normal to inspection, capillary refill normal, no clubbing, cyanosis or edema, no calf tenderness and no pedal edema Neuro: SENSORIUM/ORIENTATION: Yes oriented to person, Yes oriented to place and Yes oriented to time Skin: COMMON NORMALS: no rashes or lesions noted GENERAL SKIN EXAM: no rashes or lesions noted Course 2 Vital Signs: Vital signs: Vital Signs Temperature 98.7 F 06/03/24 08:16 Pulse Rate 71 06/03/24 11:49 Respiratory Rate 17 06/03/24 11:32 Blood Pressure 169/79 06/03/24 11:49 Pulse Oximetry 97 06/03/24 11:49 Oxygen Delivery Me thod Room Air 06/03/24 10:52 MDM - Male Medical Decision Making Patient has cystitis no leukocytosis. Discussed with him I do not think he ever passed the stone he did not have that could level of renal colic suspect the changes seen on the CT may be more related to a send urinary tract infection. He does not have a significant flank pain at this time. Patient given Rocephin here will discharge home on tamsulosin as well as cefdinir to start tomorrow and hydrocodone for pain. We did check a postvoid residual was less than 200 mL. Reviewed findings with the patient. Follow-up with his primary care if not improving or runs fever return to the emergency room Medical Records I reviewed the patient's medical records. Lab Data I reviewed the patient's lab results. 06/03/24 08:53 06/03/24 08:53 Radiology Impressions Abdomen/Pelvis CT 06/03/24 09:43 IMPRESSION: 1. Right renal edema with mild right pelvicaliceal prominence. No evidence of obstructing right ureteral calculi. Findings may represent sequela of recently passed right ureteral calculus. 2. The urinary bladder wall is circumferentially thickened with surrounding pericystic edema. There is submucosal fat deposition and prostatomegaly. Recommend correlation with urinalysis to exclude cystitis. Findings likely compounded by findings suggesting chronic urinary bladder outlet obstruction. 3. Left adrenal hyperplasia. 4. Biliary sludge without evidence to suggest acute cholecystitis. 5. Other findings as described in the body of the report. Laboratory Results WBC 9.46 10^3/uL (3.29-11.43) 06/03/24 08:53 RBC 4.97 10^6/uL (3.85-5.65) 06/03/24 08:53 Hgb 15.10 g/dL (11.27-16.99) 06/03/24 08:53 Hct 45.7 % (37-53) 06/03/24 08:53 MCV 92.0 fl (82-101) 06/03/24 08:53 MCH 30.4 pg (27-33) 06/03/24 08:53 MCHC 33.0 g/dL (30-55) 06/03/24 08:53 RDW 13.5 % (12.1-15.1) 06/03/24 08:53 Plt Count 178 10^3/cmm (157-399) 06/03/24 08:53 MPV 10.6 fL (7.4-10.4) H 06/03/24 08:53 Neut % (Auto) 82.4 % 06/03/24 08:53 Lymph % (Auto) 5.4 % 06/03/24 08:53 [place] % (Auto) 9.8 % 06/03/24 08:53 Eos % (Auto) 1.4 % 06/03/24 08:53 Baso % (Auto) 0.5 % 06/03/24 08:53 Neut # (Auto) 7.79 10^3/uL (1.8-7.7) H 06/03/24 08:53 Lymph # (Auto) 0.5 10^3/uL (0.8-4.8) L 06/03/24 08:53 [place] # (Auto) 0.9 10^3/uL (0.2-0.9) 06/03/24 08:53 Eos # (Auto) 0.1 10^3/uL (0.0-0.8) 06/03/24 08:53 Baso # (Auto) 0.1 10^3/uL (0.0-0.1) 06/03/24 08:53 Nucleated RBC % (auto) 0 % 06/03/24 08:53 Nucleated RBCs # 0.0 /100WBC 06/03/24 08:53 Sodium 131 mmol/L (136-145) L 06/03/24 08:53 Potassium 4.1 mmol/L (3.5-5.1) 06/03/24 08:53 Chloride 95 mmol/L (98-107) L 06/03/24 08:53 Carbon Dioxide 25 mmol/L (22-29) 06/03/24 08:53 Anion Gap 15.1 (5-19) 06/03/24 08:53 BUN 11 mg/dL (8-23) 06/03/24 08:53 Creatinine 1.3 mg/dL (0.7-1.2) H 06/03/24 08:53 GFR Calculation 55.8 mL/min (90-130) L 06/03/24 08:53 Glucose 109 mg/dL (65-115) 06/03/24 08:53 Calculated Osmolality 272 mOsm/kg (285-295) L 06/03/24 08:53 Calcium 8.9 mg/dL (8.5-10.5) 06/03/24 08:53 Total Bilirubin 0.9 mg/dL (0.15-1.2) 06/03/24 08:53 AST 24 U/L (0-40) 06/03/24 08:53 ALT 30 U/L (0-41) 06/03/24 08:53 Alkaline Phosphatase 128 U/L (40-130) 06/03/24 08:53 Total Protein 7.2 g/dL (6.6-8.7) 06/03/24 08:53 Albumin 3.6 g/dL (3.5-5.2) 06/03/24 08:53 Globulin 3.6 g/dL (1.3-4.6) 06/03/24 08:53 Urine Color Dark yellow (Yellow) A 06/03/24 09:13 Urine Appearance Cloudy (CLEAR) A 06/03/24 09:13 Urine pH 6.0 (5-7) 06/03/24 09:13 Ur Specific [place] 1.017 (1.005-1.030) 06/03/24 09:13 Urine Protein 2+ (Negative) A 06/03/24 09:13 Urine Glucose (UA) Negative (Normal) 06/03/24 09:13 Urine Ketones Negative (Negative) 06/03/24 09:13 Urine Blood 3+ (Negative) A 06/03/24 09:13 Urine Nitrate Positive (Negative) A 06/03/24 09:13 Urine Bilirubin Negative (Negative) 06/03/24 09:13 Urine Urobilinogen 2.0 mg/dL (Negative) H 06/03/24 09:13 Ur Leukocyte Esterase 3+ (Negative) A 06/03/24 09:13 Urine RBC 6-10 /hpf (0-2) 06/03/24 09:13 Urine WBC >100 /hpf (0-5) H 06/03/24 09:13 Ur Squamous Epith Cells 0-5 /hpf (0-5) 06/03/24 09:13 Amorphous Sediment Not Reportable 06/03/24 09:13 Urine Bacteria 4+ /hpf (NONE) H 06/03/24 09:13 Hyaline Casts 0.81 /lpf 06/03/24 09:13 All radiology interpretation(s) finalized by discharge Discharge Plan Discharge Patient Disposition: Home Clinical Impression: Pyelonephritis Condition: Stable Prescriptions: New hydrocodone-acetaminophen 5-325 mg tablet 1 tab PO Q6H PRN (Reason: pain) Qty: 2 0RF promethazine 25 mg tablet 25 mg PO Q6H PRN (Reason: nausea and vomiting) Qty: 20 0RF cefdinir 300 mg capsule 300 mg PO BID 10 Days Qty: 20 0RF tamsulosin 0.4 mg capsule 0.4 mg PO DAILY Qty: 14 0RF No Action aspirin 81 mg tablet,delayed release (DR/EC) 81 mg PO DAILY Qty: 90 3RF clopidogrel 75 mg tablet 75 mg PO DAILY Qty: 90 3RF losartan 25 mg tablet 50 mg PO DAILY Qty: 60 0RF nitroglycerin 0.4 mg tablet, sublingual 0.4 mg sublingual Q5M PRN (Reason: chest pain) Qty: 30 3RF Rx Instructions: do not exceed 3 doses per episode hydrocodone-acetaminophen 5-325 mg tablet 1 tab PO Q6H PRN (Reason: pain) 5 Days Qty: 20 0RF multivitamin Tablet 1 tab PO DAILY acetaminophen 500 mg Tablet 1,000 - 1,500 mg PO Q6H PRN (Reason: Pain) Tumeric Complex 1 cap PO DAILY Discharge Orders: Discharge ED (Routine); Ordered 06/03/24 Ordered By: Darnell Hussein Referrals: Meek Sanchez [Primary Care Provider] - Discharge Diet: Usual diet Discharge Activity: Increase activity as tolerated Patient Instructions: Opioid Safety, Pain Management Activity Restrictions/Additional Instructions: Thank you for choosing [facility] for your healthcare needs today. It is very important that you follow up as instructed or that you return to the Emergency Department should you have concerns or if your condition changes or worsens in any way. You were seen in the emergency room with complaints difficulty urination. You are found to have a bladder infection. It appears to have ascended towards the kidney as well. You are given a dose of antibiotics in the emergency room and a prescription for cefdinir 1 tablet twice a day for 10 days you are also given pain and nausea medications and tamsulosin to take 1 daily to help make it easier to empty your bladder. You should follow-up with your primary care doctor if your symptoms do not improve. Coding Level of Care Code ED Cutter Hand for Rose Cano
[2024-06-03 08:59] LABS: Basophils # 0.1 10^3/uL (0.0-0.1); Basophils % 0.5 %; Eosinophils # 0.1 10^3/uL (0.0-0.8); Eosinophils % 1.4 %; Hematocrit 45.7 % (37-53); Lymphocytes # 0.5 10^3/uL (0.8-4.8); Lymphocytes % 5.4 %; Mean Corpuscular Hemoglobin 30.4 pg (27-33); Mean Platelet Volume 10.6 fL (7.4-10.4); Monocytes # 0.9 10^3/uL (0.2-0.9); Monocytes % 9.8 %; Neutrophils # 7.79 10^3/uL (1.8-7.7); Neutrophils % 82.4 %; Nucleated Red Blood Cells % 0 %; Platelet Count 178 10^3/cmm (157-399); Red Blood Count 4.97 10^6/uL (3.85-5.65); Red Cell Distribution Width 13.5 % (12.1-15.1); White Blood Count 9.46 10^3/uL (3.29-11.43)
--- NOTE | 2024-06-03 09:05 | ECG_ITS ---
[facility] Date: 2024-06-03 Pat Name: Meek Sommers Department: Room: Gender: Male Circus Performer: : 1960 Requested By: Darnell Booker Order Number: [id number] Milagros MD: Jaiden Ocasio M.D. Measurements Intervals [place] Rate: 84 P: 85 WA: 153 QRS: 76 QRSD: 101 T: 62 QT: 360 QTc: 428 Interpretive Statements SINUS RHYTHM WITH FREQUENT ECTOPIC PREMATURE COMPLEXES POSSIBLE RIGHT ATRIAL ENLARGEMENT [0.25mV P-WAVE] POSSIBLE ANTERIOR MYOCARDIAL INFARCTION , OF INDETERMINATE AGE [30 ms Q WAVE IN V3/V4, OR R < 0.2 mV IN V4] Compared to ECG 10/21/2023 13:41:39 Sinus bradycardia no longer present Sinus arrhythmia no longer present T-wave abnormality no longer present Possible ischemia no longer present Myocardial infarct finding still present Electronically Signed On 06-03-2024 10:22:39 SHOT TUBE MACHINE TENDER by Jaiden Ocasio M.D. [email or web address]
[2024-06-03 09:14] LABS: Alanine Aminotransferase 30 U/L (0-41); Albumin Level 3.6 g/dL (3.5-5.2); Alkaline Phosphatase 128 U/L (40-130); Anion Gap 15.1 (5-19); Aspartate Amino Transferase 24 U/L (0-40); Blood Urea Nitrogen 11 mg/dL (8-23); Calcium 8.9 mg/dL (8.5-10.5); Carbon Dioxide 25 mmol/L (22-29); Chloride 95 mmol/L (98-107); Creatinine Clr Calc Pharmacy 70.4247; Globulin 3.6 g/dL (1.3-4.6); Glomerular Filtration Rate 55.8 mL/min (90-130); Glucose 109 mg/dL (65-115); Osmolality Calculated 272 mOsm/kg (285-295); Potassium 4.1 mmol/L (3.5-5.1); Sodium 131 mmol/L (136-145); Total Bilirubin 0.9 mg/dL (0.15-1.2); Total Protein 7.2 g/dL (6.6-8.7)
[2024-06-03 09:24] LABS: Bilirubin Urine Negative (Negative); Blood Urine 3+ (Negative); Glucose Urine UA Negative (Normal); Ketones Urine Negative (Negative); Leukocyte Esterase Urine 3+ (Negative); Nitrate Urine Positive (Negative); Protein Urine 2+ (Negative); Specific Gravity, Urine 1.017 (1.005-1.030); Urine Appearance Cloudy (CLEAR); Urine Color Dark Yellow (Yellow)
[2024-06-03 09:29] LABS: Add Urine Microscopic? YES; Bacteria Urine 4+ /hpf; Hyaline Casts Urine 0.81 /lpf; Squamous Epithelial Cell Urine 0-5 /hpf (0-5); WBC Urine >100 /hpf (0-5)
[2024-06-03 09:35] LABS: Add Urine Culture? Yes
--- NOTE | 2024-06-03 09:43 | CTR_ITS ---
PROCEDURE INFORMATION: Exam: CT Abdomen And Pelvis Without Contrast Exam date and time: 06/03/2024 9:52 AM Age: 64 years old Clinical indication: Abdominal pain; Patient HX: PT C/O trouble urinating since Wednesday, PT has never had his prostate checked. PT C/O no bowel movement for a couple of days, PT states he goes daily. PT C/O foul odor coming from urine; Additional info: Flank pain TECHNIQUE: Imaging protocol: Computed tomography of the abdomen and pelvis without contrast. Radiation optimization: All CT scans at this facility use at least one of these dose optimization techniques: automated exposure control; mA and/or kV adjustment per patient size (includes targeted exams where dose is matched to clinical indication); or iterative reconstruction. COMPARISON: MR lumbar spine wo con* [id number] 05/16/2024 1:14 PM RADIATION DOSE METRICS: Total DLP (mGy-cm): 880.73 FINDINGS: Lungs: Moderate dependent atelectasis bilaterally. Diaphragm: Moderate sliding hiatal hernia. Liver: Normal. No mass. Gallbladder and biliary ducts: Biliary sludge within the gallbladder. Pancreas: Fatty atrophy of the pancreas. Spleen: 1 cm peripherally calcified nodule in the spleen likely representing a splenic granuloma. Subcentimeter splenule in the left upper quadrant. Adrenal glands: Nodular thickening of the left adrenal gland. The right adrenal gland is unremarkable. Kidneys and ureters: Mild right renal edema with surrounding perinephric stranding. Minimal right proximal hydronephrosis without evidence of obstructing right ureteral calculi. The left kidney is unremarkable. Stomach and bowel: Unremarkable. No obstruction. No mucosal thickening. Appendix: The appendix is partially air-filled and unremarkable. Intraperitoneal space: No intraperitoneal free air . Trace amount of pelvic free fluid. Vasculature: [id number] calcified atherosclerotic disease of the abdominal aorta and its branches. Lymph nodes: Unremarkable. No enlarged lymph nodes. Urinary bladder: Circumferential urinary bladder wall thickening with pericystic edema. There is submucosal fat deposition along the anterior superior urinary bladder wall. Reproductive: Prostatomegaly. Bones/joints: Unremarkable. No acute fracture. Soft tissues: Tiny fat containing umbilical hernia. Fat containing inguinal hernias bilaterally. CT/CT kidney stone [id number] IMPRESSION: 1. Right renal edema with mild right pelvicaliceal prominence. No evidence of obstructing right ureteral calculi. Findings may represent sequela of recently passed right ureteral calculus. 2. The urinary bladder wall is circumferentially thickened with surrounding pericystic edema. There is submucosal fat deposition and prostatomegaly. Recommend correlation with urinalysis to exclude cystitis. Findings likely compounded by findings suggesting chronic urinary bladder outlet obstruction. 3. Left adrenal hyperplasia. 4. Biliary sludge without evidence to suggest acute cholecystitis. 5. Other findings as described in the body of the report.
[2024-06-03 09:52] VITALS: PULSE 60; RESP 20; O2SAT 96
--- NOTE | 2024-06-03 10:06 | PC.PHAR ---
Patient Spouse states he has Losartan but is not taking it .
[2024-06-03] MEDS: ondansetron 2 mg/ML SDV 2 mL 4 MG IVP (10:10)
[2024-06-03] MEDS: ketorolac 30 mg/mL INJ IVP (10:10)
[2024-06-03] MEDS: cefTRIAXone 1,000 mg SDV 1000 MG IVP (10:45)
--- NOTE | 2024-06-03 10:51 | PC.NURSE ---
pt Rocpehin delayed d/t waiting on second blood culture to be obtained.
[2024-06-03 10:52] VITALS: BP 143/77; PULSE 63; RESP 17; O2SAT 96
[2024-06-03 11:32] VITALS: BP 103/60; PULSE 57; RESP 17; O2SAT 98
[2024-06-03 11:49] VITALS: BP 169/79; PULSE 71; O2SAT 97
== END 2024-06-03 11:51 | disposition home or self-care (01) ==
PROVIDERS: Emergency Provider Family Medicine; PCP Family Medicine
DX: N12 Tubulo-interstitial nephritis, not specified as acute or chronic (principal); Z79.82 Long term (current) use of aspirin
CPT/HCPCS: 36415; 51798; 74176; 80053; 81001; 85025; 87040; 87077; 87086; 87186; 93005; 96374; 96375; 99285; J0696; J1885; J2405

== ENCOUNTER → 2024-06-06 10:31 | Outpatient (BNVA) | payer MEDICARE, SELFPAY | PROVIDERS: PCP Family Medicine; Visit Provider Orthopaedic Surgery | DX: M48.062 Spinal stenosis, lumbar region with neurogenic claudication (principal) | CPT/HCPCS: 99214 ==

== ENCOUNTER → 2024-07-19 13:07 | Outpatient (BNVA) | payer MEDICARE, SELFPAY | PROVIDERS: PCP Family Medicine; Visit Provider Podiatrist Foot & Ankle Surgery | DX: I99.9 Unspecified disorder of circulatory system (principal); L60.3 Nail dystrophy; L84 Corns and callosities; I73.9 Peripheral vascular disease, unspecified | CPT/HCPCS: 11056; 11721; 99213 ==

== ENCOUNTER 2024-08-03 14:25 | Outpatient (CLI) | payer MEDICARE, SELFPAY ==
--- NOTE | 2024-08-03 14:30 | CTR_ITS ---
PROCEDURE INFORMATION: Exam: CTA Abdominal Aorta and Bilateral Lower Extremities (Run-off) With Contrast Exam date and time: 08/03/2024 2:56 PM Age: 64 years old Clinical indication: Foot pain; Bilateral; Poor blood flow to feet, tingling and numbness in feet x 1 year TECHNIQUE: Imaging protocol: Computed tomographic angiography of the of the abdominal aorta, pelvis and bilateral lower extremities with contrast. 3D rendering (Not supervised by radiologist): MIP and/or 3D reconstructed images were created by the technologist. Radiation optimization: All CT scans at this facility use at least one of these dose optimization techniques: automated exposure control; mA and/or kV adjustment per patient size (includes targeted exams where dose is matched to clinical indication); or iterative reconstruction. Contrast material: OMNIPAQUE 350; Contrast volume: 125 ml; Contrast route: INTRAVENOUS (IV); COMPARISON: CT kidney stone [id number] 06/03/2024 9:52 AM RADIATION DOSE METRICS: Total DLP (mGy-cm): 1821.09 FINDINGS: Aorta: Extensive atherosclerotic plaque. Ectasia of the abdominal aorta up to 2.4 cm. No aortic aneurysm. No aortic dissection. Celiac trunk and mesenteric arteries: Occluded inferior mesenteric artery with reconstitution from collateralized vasculature. Mild stenosis at the celiac origin. Superior mesenteric origin is widely patent. Renal arteries: Duplicated bilateral renal arteries. Moderate stenosis at 1 of the duplicated left renal arteries. No occlusion. Right iliac arteries: Extensive atherosclerotic plaque with moderate stenosis at the origin of the common iliac. No occlusion. Right femoral/popliteal arteries: Scattered areas of mild to moderate stenosis of the common femoral through the superficial femoral arteries, most significant in the distal superficial femoral artery proximal to the popliteal artery. Right infrapopliteal arteries: Diminutive flow of the infrapopliteal arteries. There is occlusion of the posterior tibial artery with reconstitution from collateralized vasculature distally. Left iliac arteries: Extensive atherosclerotic plaque with moderate stenosis at the origin of the common iliac. No occlusion. Left femoral/popliteal arteries: Scattered areas of mild stenosis involving the common femoral artery. Areas of moderate and severe stenosis seen within the superficial femoral artery. The superficial femoral artery is occluded at its distal aspect with reconstitution from collateralized vasculature. Left infrapopliteal arteries: Diminutive flow of the peroneal artery, which appears occluded distally with reconstitution from collateralized vasculature. Liver: No mass. Gallbladder and biliary ducts: Unremarkable. No calcified stones. No ductal dilation. Pancreas: Unremarkable. No mass. No ductal dilation. Spleen: Normal. No splenomegaly. Adrenal glands: Normal. No mass. Kidneys and ureters: Normal. No mass. Stomach and bowel: Unremarkable. No obstruction. No mucosal thickening. Appendix: No evidence of appendicitis. Urinary bladder: Unremarkable. No mass. Reproductive: Enlarged prostate. Intraperitoneal space: Unremarkable. No free air. No significant fluid collection. Lymph nodes: No lymphadenopathy. Bones/joints: No acute fracture. No dislocation. Soft tissues: Scrotal edema noted. CT/CT angio abd aorta runof [id number] IMPRESSION: 1. Sequela of advanced peripheral arterial disease. 2. Diminutive right infrapopliteal flow of all 3 vessels. Posterior tibial vessel is occluded, this is chronic given reconstitution from collateralized vasculature distally. 3. Diminutive flow of the left peroneal artery which appears occluded distally with reconstitution from collateralized vasculature. 4. 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 5. Areas of moderate stenosis involving common iliac, common femoral, and superficial femoral arteries bilaterally. 6. 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 7. Ectasia of the abdominal aorta up to 2.4 cm. 8. Scrotal edema.
[2024-08-03 14:57] LABS: Blood Urea Nitrogen 16 mg/dL (8-23); Glomerular Filtration Rate 75.5 mL/min (90-130)
[2024-08-03] MEDS: iohexol 350 mg/mL 500 mL Btl (per mL) IV (15:10)
== END 2024-08-03 14:26 | disposition home or self-care (01) ==
PROVIDERS: PCP Family Medicine; Visit Provider Podiatrist Foot & Ankle Surgery
DX: I99.9 Unspecified disorder of circulatory system (principal); I70.0 Atherosclerosis of aorta; I77.811 Abdominal aortic ectasia; K55.069 Acute infarction of intestine, part and extent unspecified; I77.4 Celiac artery compression syndrome; R93.89 Abnormal findings on diagnostic imaging of other specified body structures; I70.1 Atherosclerosis of renal artery; I70.8 Atherosclerosis of other arteries; N40.0 Benign prostatic hyperplasia without lower urinary tract symptoms; N50.89 Other specified disorders of the male genital organs
CPT/HCPCS: 75635; 82565; 84520

== ENCOUNTER → 2024-08-10 14:22 | Outpatient (BNVA) | payer MEDICARE, SELFPAY | PROVIDERS: PCP Family Medicine; Referring Provider Orthopaedic Surgery; Visit Provider Specialist | DX: M79.671 Pain in right foot (principal); M79.672 Pain in left foot; M51.16 Intervertebral disc disorders with radiculopathy, lumbar region | CPT/HCPCS: 95908 ==

== ENCOUNTER → 2024-08-15 13:39 | Outpatient (BNVA) | payer MEDICARE, SELFPAY | PROVIDERS: PCP Family Medicine; Visit Provider Orthopaedic Surgery | DX: M54.9 Dorsalgia, unspecified (principal); M47.816 Spondylosis without myelopathy or radiculopathy, lumbar region | CPT/HCPCS: 99214 ==

== ENCOUNTER → 2024-08-16 14:42 | Outpatient (BNVA) | payer MEDICARE, SELFPAY | PROVIDERS: PCP Family Medicine; Visit Provider Podiatrist Foot & Ankle Surgery | DX: I73.9 Peripheral vascular disease, unspecified (principal); L60.3 Nail dystrophy; L84 Corns and callosities | CPT/HCPCS: 99213 ==

== ENCOUNTER → 2024-08-17 10:53 | Outpatient (BNVA) | payer MEDICARE, SELFPAY | PROVIDERS: PCP Family Medicine; Visit Provider Nurse Practitioner Family | DX: M48.062 Spinal stenosis, lumbar region with neurogenic claudication (principal); M47.816 Spondylosis without myelopathy or radiculopathy, lumbar region; T85.192S Other mechanical complication of implanted electronic neurostimulator of spinal cord electrode (lead), sequela; M51.16 Intervertebral disc disorders with radiculopathy, lumbar region; F17.200 Nicotine dependence, unspecified, uncomplicated | CPT/HCPCS: 99214 ==

== ENCOUNTER → 2024-08-21 15:23 | Outpatient (BNVA) | payer MEDICARE, SELFPAY | PROVIDERS: PCP Family Medicine; Visit Provider Internal Medicine Cardiovascular Disease | DX: I73.9 Peripheral vascular disease, unspecified (principal); I10 Essential (primary) hypertension; F17.200 Nicotine dependence, unspecified, uncomplicated | CPT/HCPCS: 99214 ==

== ENCOUNTER 2024-08-31 15:46 | Outpatient (CLI) | payer MEDICARE, SELFPAY ==
[2024-08-31 16:27] LABS: Basophils % 0.5 %; Eosinophils # 0.2 10^3/uL (0.0-0.8); Eosinophils % 2.8 %; Hematocrit 41.9 % (37-53); Lymphocytes # 1.8 10^3/uL (0.8-4.8); Lymphocytes % 23.7 %; Mean Corpuscular HGB Conc 33.7 g/dL (30-55); Mean Corpuscular Hemoglobin 29.7 pg (27-33); Mean Corpuscular Volume 88.4 fl (82-101); Mean Platelet Volume 9.7 fL (7.4-10.4); Monocytes # 0.5 10^3/uL (0.2-0.9); Monocytes % 6.8 %; Neutrophils # 5.11 10^3/uL (1.8-7.7); Neutrophils % 66.1 %; Nucleated Red Blood Cells % 0 %; Platelet Count 242 10^3/cmm (157-399); Red Blood Count 4.74 10^6/uL (3.85-5.65); Red Cell Distribution Width 13.8 % (12.1-15.1); White Blood Count 7.75 10^3/uL (3.29-11.43)
[2024-08-31 16:57] LABS: Prothrombin Time (Patient) 12.8 Seconds (12.0-15.1)
[2024-08-31 17:54] LABS: Anion Gap 15.5 (5-19); Blood Urea Nitrogen 15 mg/dL (8-23); Calcium 9.1 mg/dL (8.5-10.5); Carbon Dioxide 23 mmol/L (22-29); Chloride 105 mmol/L (98-107); Glomerular Filtration Rate 85.2 mL/min (90-130); Glucose 133 mg/dL (65-115); Osmolality Calculated 293 mOsm/kg (285-295); Potassium 3.5 mmol/L (3.5-5.1); Sodium 140 mmol/L (136-145)
== END 2024-08-31 15:47 | disposition home or self-care (01) ==
LOC: LAB 15:50
PROVIDERS: PCP Family Medicine; Visit Provider Internal Medicine Cardiovascular Disease
DX: I73.9 Peripheral vascular disease, unspecified (principal)
CPT/HCPCS: 36415; 80048; 85025; 85610

== ENCOUNTER 2024-09-05 04:54 | Outpatient (CLI) | payer MEDICARE, SELFPAY ==
--- NOTE | 2024-09-04 10:57 | PC.NURSE ---
attempted to call patient about pre peripheral angiogram instructions but patient did not answer twice. No voicemail available.
[2024-09-05] VITALS (21 sets, daily range): BP systolic 141–194; BP diastolic 77–111; PULSE 68–84; RESP 14–29; TEMP 36.6; O2SAT 95–98; BMI 29.1
--- NOTE | 2024-09-05 05:00 | XACV_ITS ---
Ht: 191 cm Wt: 106 kg BSA: 2.38 m2 Any Known Allergies: Other Gender: Male : 1960 Exam Type: Invasive Peripheral Vascular Procedure(s): Procedure Description: Peripheral Cath Diagnostic Procedure Procedure Description: Abdominal aortic angiography Procedure Description: Iliac arterial aortic angiography Procedure Description: Lower extremities' angiography Exam Priority: Routine [facility], [place]; Lower Extremity Diagnostic Findings Indication for peripheral angiogram:: Lifestyle limiting claudication Catheters used: UF and long sheathAbdominal aortogram: UF catheter was placed at mid abdominal T12 level in order to obtain abdominal aortogram and to visualize renal arteries. Diffuse luminal irregularities with atherosclerotic plaque throughout, it is a calcified abdominal aorta no significant aneurysm noted Right renal artery: Patent Left renal artery: PatentLong destination sheath was used to obtain right leg angiogram. 6 Polish long destination sheath was advanced over Glidewire at the ostium of the right common iliac to obtain peripheral angiogram of the right leg.Right common iliac: Patent with luminal irregularity Right external iliac: Patent with luminal irregularity Right internal iliac: Patent with luminal irregular Right common femoral artery: Patent with luminal irregular Right profundofemoral artery: Patent with luminal irregular Right SFA: Patent with luminal irregular Right popliteal artery: Patent lumen irregular Right tibioperoneal trunk: Patent luminal irregularity Right anterior tibial artery: Patent with luminal irregular Right posterior tibial artery: Chronically occluded in the mid segment reconstitute in the distal segment from anterior tibial collaterals Right peroneal artery: Patent with luminal irregularity UF catheter was placed at the bifurcation of the abdominal aorta and then pulled back into the left common iliac artery to obtain angiogram of left lower extremity including illiacsLeft common iliac artery: Proximal segment has highly calcified eccentric lesion appeared to be significant Left external iliac artery: Luminal irregularity without significant stenosis Left internal iliac artery: Luminal irregularity without significant stenosis Left common femoral artery: Luminal irregularity without significant stenosis Left profundofemoral artery: Luminal irregularity without significant stenosis Left SFA artery: 100% chronically occluded in the midsegment reconstitutes in the distal segment near popliteal vessel through profundofemoral collaterals Left popliteal artery: Luminal irregularity without significant stenosis Left tibioperoneal artery: Luminal irregularity without significant stenosis Left anterior tibial artery: Appeared to be patent as not able to obtain good images possible stay to occlusion of the SFA Left posterior tibial artery: Appeared to be patent Left peroneal artery: Appeared to be patent. Conclusions Conclusion: Severe peripheral disease of the left lower extremity including high-grade proximal left common iliac significant eccentric stenosis. chronically occluded mid to distal left SFA. Recommendations Usual post cath care Patient will be brought back in 2 to 3 weeks for percutaneous intervention of left common iliac and SFA. Continue medical management and stage per progress intervention of left lower extremity for lifestyle limiting claudication and severe peripheral arterial disease. Hemodynamic Data Phase:Rest AO : 157.0 / 76.0 ( 107.0 ) @ 6:52:00 AM 108.0 / 66.0 ( 85.0 ) @ 7:05:00 AM 133.0 / 72.0 ( 95.0 ) @ 7:08:00 AM 145.0 / 70.0 ( 97.0 ) @ 7:11:00 AM 125.0 / 74.0 ( 94.0 ) @ 7:12:00 AM 147.0 / 73.0 ( 104.0 ) @ 7:29:00 AM 135.0 / 71.0 ( 96.0 ) @ 7:29:00 AM Access Site Site: Left Femoral artery Sheath Size: 6 Fr Hemost... Method: Angio-Seal VIP ([place]) Hemost... Success: Successful Procedure Details Findings Procedure Consent Obtained. Pre-Procedure Time Out. Identified patient by full name and date of as verbalized by the patient/guarantor. Does the consent match the physician's order: Yes. Accurate & Complete Informed Consent: Yes. Inpatient/Outpatient History & Physical on Chart: Yes. If H&P is completed, is and addenduem needed: No. Visualize and Verify Site with Patient/Guarantor: N/A. Relevant Radiology Images available: Yes. The risks, benefits, and alternatives of sedation and/or procedure were discussed by physician. The patient agrees to continue. 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 Current diagnosis: PVD. PERRLA. 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 Lungs clear x 5 lobes. IV Site on Arrival: 20 gauge in the left anticubital. IV Fluids: 0.9% NaCl at KVO. 0 mL infused prior to cathode ray tube assembler. Pre Procedural Pulses: bilateral dorsalis pedis was Doppled. Pre Procedural Pulses: bilateral posterior tibial was Doppled. Pre Procedural Pulses: bilateral radial was 3+. Oxygen started at 2liters/min via nasal canula. bilateral groins was prepped with chloroprep then draped in the usual sterile fashion. Physician notified. Baseline sample Acquired. HR: 81 BPM. Patient's family in CPRU room #3. Dr. Rodriguez will update a the completion of the procedure. Equipment: 6F - Femoral. Cardiac Cath Pack. ACIST Manifold Kit Model BT 2000. Heparinized Saline (2 units/mL), 1000 mL bag. Kit, Micropuncture. Physician arrived. Physician scrubbed in. Immediate Pre-Procedure Time Out. Correct Patient: Yes; Correct Procedure: Yes; Correct Site: Yes; Correct Patient Position: Yes; Correct Supplies: Yes; Dried Flammable Prep: Yes; Blood Products Available: N/A;. Lidocaine 1% infiltrated to the left groin. Arterial access obtained with micropuncture set. Wire unable to cross. Wire and needle out. Dr. Rodriguez holding manual pressure. Arterial access obtained with micropuncture set. A 5 Fr UF catheter in over the standard J wire. Pigtail postioned above the bifurcation of the iliacs. Aortagram performed @ 10 mL/sec for a total of 30 mL. 0.035 x 260cm stiff angled glidewire in through the UF catheter and advanced down the right SFA. UF catheter out over the glidewire. Sheath upsized to a 6 Fr. Right common femoral selected and arteriogram with runoff performed @ 10 mL/sec for a total of 30 mL through the Flexor sheath. Right common iliac selected and arteriogram with runoff performed @ 10 mL/sec for a total of 30 mL in DSA through the Flexor sheath. Right common iliac selected and arteriogram with runoff performed @ 10 mL/sec for a total of 30 mL in DSA through the Flexor sheath. Left external iliac selected and arteriogram with runoff performed @ 10 mL/sec for a total of 30 mL in DSA through the Flexor sheath. Left common iliac selected and arteriogram with runoff performed @ 10 mL/sec for a total of 30 mL in DSA through the Flexor sheath. Sheath upsized to a 6 Fr. Glidewire pulled back into the Left Common Iliac. A 5 Fr UF catheter in over the glidewire. DSA performed x2. Catheter out. Sheath injected in Left common femoral artery and runoff performed. ACT drawn. Results seconds. Therapeutic limits - pre-heparin administration 90-150 seconds and monitoring heparin during a vascular procedure >250 seconds. A Angio-Seal VIP ([place]) was successful obtaining hemostatsis at the Left Femoral artery insertion site. Lidocaine 1% infiltrated to the left groin. Angioseal placed without complications. No signs or symptoms of hematoma noted. Sterile dressing applied per usual sterile fashion. Lot # [id number]. Exp. . Post Procedure: Pulses reassessed and unchanged. PERRLA. 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 No VTE prophylaxis required. Medication's Wasted: Lidocaine 1% = 10 mL. Medication's Wasted: Heparin = 1000 units. Medication's Wasted: Other = Fentnayl 50 mcg. Total IV fluids: 65 mL. Post-op diagnosis: Moderate disease of the right leg. Severe left SFA with complete occlusion the mid section. Moderate left proximal iliac disease. Will stage intervention of the left SFA. Complications: none. Estimated blood loss: 5mL-10mL. Responsiveness - Normal response to verbal stimuli; alert and oriented, PERRLA. Airway - Unaffected, no intervention required; spontaneous ventilation. Circulation: W/N/L, pulses unchanged. Nausea/Vomiting: No. Vital chart was stopped. Procedure completed. Patient transferred by bed to E.D. Patient transferred by stretcher to CPRU. Procedure Medications Start: 6:36 AM Stop: 6:36 AM Medication: Versed Amount: 1 mg Route: I.V. Start: 6:36 AM Stop: 6:36 AM Medication: Fentanyl Amount: 50 mcg Route: I.V. Start: 6:48 AM Stop: 6:48 AM Medication: Fentanyl Amount: 25 mcg Route: I.V. Start: 6:47 AM Stop: 6:47 AM Medication: Versed Amount: 1 mg Route: I.V. Start: 6:51 AM Stop: 6:51 AM Medication: Versed Amount: 1 mg Route: I.V. Start: 7:01 AM Stop: 7:01 AM Medication: Heparin Amount: 5000 units Route: I.V. Start: 7:04 AM Stop: 7:04 AM Medication: Fentanyl Amount: 25 mcg Route: I.V. Start: 7:10 AM Stop: 7:10 AM Medication: Versed Amount: 1 mg Route: I.V. Start: 7:25 AM Stop: 7:25 AM Medication: 0.9% Saline Amount: 100 ml/hr Route: I.V. drip Start: 7:34 AM Stop: 7:34 AM Medication: Fentanyl Amount: 25 mcg Route: I.V. Start: 7:36 AM Stop: 7:36 AM Medication: Fentanyl Amount: 25 mcg Route: I.V. I, the attending physician, have reviewed and verified all procedure medications. Yes, all medications given per verbal order History/Risk Factors Hypertension: Yes Dyslipidemia: Yes Peripheral Arterial Disease (PAD): Yes Myocardial Infarction ([place]): Yes Obesity: No Renal Disease: No Tobacco Use: Current/Recent(w/in 1 year) Prior Interventions PCI: Yes CABG: No Valve Surgery: No Date of PCI: 10/21/2023 Report Signatures Finalized by Bebeto Rodriguez MD on 09/17/2024 05:29 PM
[2024-09-05] MEDS: diphenhydrAMINE 50 mg Capsule PO (05:20)
--- NOTE | 2024-09-05 06:31 | W.PM.OPSFHP ---
Same Day Surgery H&P Indication for Procedure/HPI DATE OF PROCEDURE: September 05, 2024 CHIEF COMPLAINT/INDICATIONFOR SURGICAL PROCEDURE: Lifestyle limiting claudication bilaterally more on right than left Abnormal peripheral CTA angiogram Multiple SFA high-grade stenosis and infrapopliteal bilateral disease Inability to walk Has tried many medical management and failed including cilostazol PREOP DIAGNOSIS: As above/lifestyle limiting claudication/abnormal CTA with runoff PLANNED PROCEDURE: Operation Date: 09/05/24 07:00 Proposed Procedures p Peripheral Diagnostic - PERIPHERAL ANGIOGRAM(Not Applicable) - Bebeto Rodriguez MD 64-year-old male past medical history significant for hypertension hyperlipidemia history of tobacco use for worsening of bilateral lower extremity claudication pain aches cramps inability to walk more than 100 to 200 feet without getting rest he is here for peripheral angiogram since failed medical management including cilostazol. CTA with runoff shows multiple high-grade bilateral SFA and infrapopliteal stenosis. Will proceed with peripheral angiogram and percutaneous angioplasty atherectomy drug-coated balloon or stent placement. Medications/Allergies* Home Medications ?Medication ?Instructions ?Recorded ?Confirmed ?Type acetaminophen 500 mg tablet 1,000 - 1,500 mg PO Q6H PRN Pain 10/21/23 09/04/24 History multivitamin 1 tab PO DAILY 10/21/23 09/04/24 History Tumeric Complex 1 cap PO DAILY 06/03/24 09/04/24 History Allergies/Adverse Reactions Allergy/AdvReac Type Severity Reaction Status Date / Time amlodipine Allergy ADR-Chest Verified 08/21/24 15:33 Pain lisinopril AdvReac Severe ADR-Cough Verified 08/21/24 15:33 Current Medications: Generic Name Dose Route Start Last Admin Trade Name Freq PRN Reason Stop Dose Admin Sodium Chloride 1,000 mls @ 50 mls/hr 09/05/24 05:00 09/05/24 05:09 Sodium Chloride 0.9% IV 09/06/24 00:59 Not Given .Q20H ONE Pertinent History/Comorbid Conditions* Medical History (Updated 08/17/24 @ 11:09 by Priya Conley NP) Intervertebral disc disorders with radiculopathy, 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 Yana Keene pain management. Thoracic spinal cord stimulator placement (08/13/2009). Malfunction of spinal cord stimulator Family History (Updated 10/13/19 @ 14:05 by Sarah Beth Finley LPN) Heart disease Mother Cancer Father Hypertension Mother Social History Smoking and tobacco/nicotine status: current every day tobacco/nicotine user Alcohol intake: never Substance/Drug Use: never Household members: spouse Marital status: Current occupational status: retired Pertinent Exam Findings alert, oriented x 3, clear to auscultation bilaterally, regular rate & rhythm and operative site marked GENERAL: Patient is alert, awake and oriented x3. HEART: Regular S1 and S2. No murmur, rub or gallop. LUNGS: Clear to auscultate bilaterally. CENTRAL NERVOUS SYSTEM: Grossly nonfocal. EXTREMITIES: Lower extremities with out edema bilaterally. Recommendations Other Other Plans: Proceed with peripheral angiogram/INVOICE MACHINE OPERATOR/atherectomy/stent placement or drug-coated balloon if indicated. Patient has been explained all risk-benefit and alternative for the procedure. He understand 2% risk of stroke major bleed, he understand 5 to 6% risk of contrast-induced nephropathy. He understand risk for embolization acute limb ischemia vascular surgery urgent emergent and worst-case scenario amputation of the limb. He would like to proceed with it. Coding Level of Care Code Acute Code for Rose Cano
--- NOTE | 2024-09-05 08:00 | PC.NURSE ---
Fluid Order Clarification Dr. Rodriguez at bedside, gave verbal orders for patient to receive NS atr 150ml/hr X 4 hours. Infusion started from NS bag pulled in cath from procedure. See infusion/titration flowsheet.
--- NOTE | 2024-09-05 11:15 | PC.NURSE ---
Ambulation 3 hr bedrest period up. Patient sat on side of bed for a few minutes, left groin site asymptomatic. No signs of bleeding, hematoma, or pain. Ambulated patient around nursing unit for about 5 minutes. Tolerated well. After ambulation, site remains asymptomatic. Assisted patient up to chair.
== END 2024-09-05 12:16 | disposition home or self-care (01) ==
PROVIDERS: PCP Family Medicine; Visit Provider Internal Medicine Cardiovascular Disease
DX: I70.213 Atherosclerosis of native arteries of extremities with intermittent claudication, bilateral legs (principal); I10 Essential (primary) hypertension; E78.5 Hyperlipidemia, unspecified; I25.2 Old myocardial infarction; F17.200 Nicotine dependence, unspecified, uncomplicated
CPT/HCPCS: 36415; 75625; 75716; 85347; 96374; 99152; 99153; C1760; C1769; C1887; C1894; G0269; J1644; J2250; J3010; J7030; J9999; Q0163; Q9967

== ENCOUNTER → 2024-09-18 14:48 | Outpatient (BNVA) | payer MEDICARE, SELFPAY | PROVIDERS: PCP Family Medicine; Visit Provider Nurse Practitioner Family | DX: I73.9 Peripheral vascular disease, unspecified (principal); F17.200 Nicotine dependence, unspecified, uncomplicated | CPT/HCPCS: 99214 ==

== ENCOUNTER → 2024-09-20 14:04 | Outpatient (BNVA) | payer MEDICARE, SELFPAY | PROVIDERS: PCP Family Medicine; Visit Provider Podiatrist Foot & Ankle Surgery | DX: I73.9 Peripheral vascular disease, unspecified (principal); L60.3 Nail dystrophy; L84 Corns and callosities | CPT/HCPCS: 99213 ==

== ENCOUNTER → 2024-09-28 10:12 | Outpatient (BNVA) | payer MEDICARE, SELFPAY | PROVIDERS: PCP Family Medicine; Visit Provider Nurse Practitioner Family | DX: M48.062 Spinal stenosis, lumbar region with neurogenic claudication (principal); M47.816 Spondylosis without myelopathy or radiculopathy, lumbar region; T85.192S Other mechanical complication of implanted electronic neurostimulator of spinal cord electrode (lead), sequela; M51.16 Intervertebral disc disorders with radiculopathy, lumbar region | CPT/HCPCS: 99213 ==

== ENCOUNTER 2024-10-05 14:24 | Outpatient (CLI) | payer MEDICARE, SELFPAY ==
[2024-10-05 15:37] LABS: Basophils # 0.1 10^3/uL (0.0-0.1); Basophils % 0.9 %; Eosinophils # 0.3 10^3/uL (0.0-0.8); Eosinophils % 4.3 %; Hematocrit 42.2 % (37-53); Lymphocytes # 1.9 10^3/uL (0.8-4.8); Lymphocytes % 24.2 %; Mean Corpuscular HGB Conc 34.1 g/dL (30-55); Mean Corpuscular Hemoglobin 30.7 pg (27-33); Mean Platelet Volume 10.1 fL (7.4-10.4); Monocytes # 0.7 10^3/uL (0.2-0.9); Monocytes % 8.7 %; Neutrophils # 4.72 10^3/uL (1.8-7.7); Neutrophils % 61.6 %; Nucleated Red Blood Cells % 0 %; Platelet Count 245 10^3/cmm (157-399); Red Blood Count 4.69 10^6/uL (3.85-5.65); Red Cell Distribution Width 14.1 % (12.1-15.1); White Blood Count 7.66 10^3/uL (3.29-11.43)
[2024-10-05 15:57] LABS: Anion Gap 14.9 (5-19); Blood Urea Nitrogen 17 mg/dL (8-23); Calcium 9.1 mg/dL (8.5-10.5); Carbon Dioxide 23 mmol/L (22-29); Chloride 103 mmol/L (98-107); Glomerular Filtration Rate 85.2 mL/min (90-130); Glucose 84 mg/dL (65-115); Osmolality Calculated 285 mOsm/kg (285-295); Potassium 3.9 mmol/L (3.5-5.1); Sodium 137 mmol/L (136-145)
[2024-10-05 16:02] LABS: INR 0.88 (0.8-1.2)
== END 2024-10-05 14:25 | disposition home or self-care (01) ==
PROVIDERS: PCP Family Medicine; Visit Provider Nurse Practitioner Family
DX: I10 Essential (primary) hypertension (principal); I73.9 Peripheral vascular disease, unspecified; M79.672 Pain in left foot; M79.671 Pain in right foot
CPT/HCPCS: 80048; 85025; 85610

== ENCOUNTER 2024-10-11 13:11 | Observation (INO) | payer MEDICARE, SELFPAY ==
[2024-10-11] VITALS (20 sets, daily range): BP systolic 94–178; BP diastolic 73–110; PULSE 68–122; RESP 14–28; TEMP 36.4–36.7; O2SAT 94–98; BMI 27.5; BMI 27.6
--- NOTE | 2024-10-11 07:30 | XACV_ITS ---
Exam Room: 2 Ht: 191 cm Wt: 100 kg BSA: 2.31 m2 Gender: Male : 1960 Any Known Allergies: Other Exam Priority: Routine Procedure(s): Procedure Description: Diagnostic procedure Procedure Description: Peripheral Cath Diagnostic Procedure Procedure Description: Abdominal aortic angiography Procedure Description: Lower extremities' angiography Procedure Description: Peripheral vascular Intervention Procedure Description: PV Balloon Procedure Description: PV Stent Procedure Description: Miscellaneous Procedure Description: ACT [id number], Rodriguez; Diagnostic Cath Status: Elective Conclusions Indication for peripheral angiogram: Lifestyle-limiting claudication of the left leg and foot despite of optimization of medicine Catheters used: Long flexor 6 Bol[place]ian sheath, rim catheter to obtain contralateral angiogram, seeker catheter to cross the lesion, Glidewire Abdominal aortogram: Not performed Right renal artery: Not performed Left renal artery: Not performedUsing fexor 6f sheath right illiac angiogram was obtained from right WATER METER MECHANIC, Right common iliac: Moderate eccentric mid to distal stenosis Right external iliac: Proximal moderate stenosis Right internal iliac: Diffuse luminal irregularity with eccentric moderate lesion in the mid Right common femoral artery: Angiogram not performed Right profundofemoral artery: Angiogram not performed Right SFA: Angiogram not Right popliteal artery: Angiogram not performed Right tibioperoneal trunk: Angiogram not The right anterior tibial artery: Angiogram not performed Right peroneal artery: Angiogram not performed Right peroneal artery: Angiogram not performedUsing rim catheters left common iliac angiogram and runoff was obtainedLeft common iliac artery: Eccentric high-grade calcified stenosis more than 90% with more than 60 mm of gradient across the lesion Left external iliac artery: Luminal irregularity without significant stenosis Left internal iliac artery: Luminal irregularity without significant stenosis Left common femoral artery: Luminal irregularity without significant Left profundofemoral artery: Luminal irregularity without significant stenosis Left SFA artery: The proximal segment moderate to high-grade stenosis tapering off towards the mid segment which is 100% occluded, it is a calcified vessel reconstitutes at the distal end near adductor canal through collaterals Left popliteal artery: Luminal irregularity without significant stenosis Left tibioperoneal artery: Luminal irregularity without significant stenosis Left anterior tibial artery: Luminal irregularity without significant stenosis Left posterior tibial artery: Luminal irregularity without significant stenosis Left peroneal artery: Luminal irregularity without significant stenosis. Percutaneous intervention of mid to distal SFA: Using glide wire and seeker we were able to cross mid to distal SFA into the tibial vessel. Using 6.0 x 80 centimeter IV L shock wave catheter multiple pulses were administered distal to proximal SFA. Using 6.0 x 150 millimeter drug-coated balloon mid to distal SFA was treated with angioplasty. Distal SFA noted to have stable short lesion which was moderate stenotic it was then treated with AB Dundee x 20 x 135 mm balloon, excellent angiographic result with good flow was noted in left SFA. Three-vessel runoff was noted including tibioperoneal trunk anterior and posterior tibial and peroneal vessel on the left side. IV L shockwave treatment of left eccentric high-grade ostial iliac artery with large balloon. Multiple shocks were delivered. It was then treated with balloon angioplasty using a B. Dundee 7 x 60 mm balloon. We then tried to stent the left ostial common iliac artery using 8 x 37 Lifestream covered stent in the process of deploying stent dislodged over the wire we will try to retrieve it using 4 oh balloon but despite of utmost effort we were not therefore we pulled the stent back into right common iliac artery and deployed it in the moderate right common iliac artery lesion. We then obtain ipsilateral left common femoral approach and crossed the lesion with Glidewire's. Another Lifestream 8.0 x 37 mm stent was then deployed in the left common iliac ostial lesion at high inflation with good angiographic result. Recommendations 1-Return to inpatient for close monitoring and routine cath care 2-Risk factor modification for secondary prevention 3-Statin and aspirin 81 mg life-long, if tolerated 4-Continue Plavix 75mg p.o. daily 5-Continue optimal medical management 6-Follow up with Dr. Rodriguez in four weeks and your primary care in 10 days. Pressures Phase:Rest AO : 132 / 92 ( 108 ) @ 10:39:00 AM 113 / 66 ( 86 ) @ 10:59:00 AM 148 / 73 ( 102 ) @ 12:10:00 PM 149 / 84 ( 110 ) @ 1:47:00 PM Hemodynamic Data Phase:Rest AO : 132.0 / 92.0 ( 108.0 ) @ 10:39:00 AM 113.0 / 66.0 ( 86.0 ) @ 10:59:00 AM 148.0 / 73.0 ( 102.0 ) @ 12:10:00 PM 149.0 / 84.0 ( 110.0 ) @ 1:47:00 PM Clinical Evaluation EBL: 5mL-10mL Procedural Details Procedure Consent Obtained. Admit Source: Out Patient. Pre-Procedure Time Out. Identified patient by full name and date of as verbalized by the patient/guarantor. Does the consent match the physician's order: Yes. Accurate & Complete Informed Consent: Yes. Inpatient/Outpatient History & Physical on Chart: Yes. If H&P is completed, is and addenduem needed: Yes; If yes, is the addendum complete: N/A. Visualize and Verify Site with Patient/Guarantor: N/A. Relevant Radiology Images available: N/A. Pre-op teaching completed and patient verbalized understanding. The risks, benefits, and alternatives of sedation and/or procedure were discussed by physician. The patient agrees to continue. 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 Correct patient, site and procedure confirmed by cath team. Current diagnosis: PVD. PERRLA. Strong, equal hand project coordinator bilaterally. Lungs clear x 5 lobes. IV Site on Arrival: 20 gauge in the right anticubital. IV Fluids: 0.9% NaCl at KVO. 0 mL infused prior to label cutter. Pre Procedural Pulses: bilateral posterior tibial was Doppled. Pre Procedural Pulses: bilateral dorsalis pedis was Doppled. Oxygen started at 2liters/min via nasal canula. bilateral groins was prepped with chloroprep then draped in the usual sterile fashion. Physician notified. Baseline sample Acquired. HR: 74 BPM. Physician arrived. Physician scrubbed in. Time out performed with cath team. Lidocaine 1% infiltrated to the right groin. Arterial access obtained with micropuncture set. A 5Fr RIM catheter in over wire. Hand injection performed through the catheter. Left common iliac selected and arteriogram performed. Glidewire out. Runthrough wire inserted. Glidewire inserted. Catheter out over the Runthrough wire. Seeker catheter inserted over the wire. Katie Rodriguez RN was relieved by Toya Rodriguez RN as monitoring person. Seeker catheter and wire out. RIM catheter in over glidewire. Glidewire out. 300cm runthrough wire in through catheter and advanced to left SFA. Runthrough wire out. Glidewire in through RIM catheter. Glidewire advanced to mid left SFA. RIM catheter out over glidewire. 6fr short sheath exchanged for 6fr 45cm flexor sheath over the glidewire. Left common femoral selected and arteriogram with runoff performed @ 10 mL/sec for a total of 30 mL. Side port of sheath attached to Normal Saline flush at KVO to maintain patency. Seeker catheter in over the glidewire. Wire and seeker advanced to distal SFA. Add inventory: 0.35 torque device. Wire and seeker advanced to popliteal. Wire out. Contrast injection through seeker to better visualize distal vessels. Runthrough wire in through seeker to anterior tibial. Seeker catheter out. IVL shockwave balloon in over wire. Inflation number : 1 A Shockwave IVL 6.0 X 80cm was prepped and advanced across the Distal Superficial Femoral, Left , then inflated to 4 YVETTE for 1:12 seconds. Inflation number: 2 The Shockwave IVL 6.0 X 80cm was reinflated across the Distal Superficial Femoral, Left, to 4 YVETTE for 0:29 seconds. Inflation number: 1 The Shockwave IVL 6.0 X 80cm was reinflated across the Mid Superficial Femoral, Left, to 4 YVETTE for 0:29 seconds. Inflation number: 2 The Shockwave IVL 6.0 X 80cm was reinflated across the Mid Superficial Femoral, Left, to 4 YVETTE for 0:30 seconds. Inflation number: 3 The Shockwave IVL 6.0 X 80cm was reinflated across the Mid Superficial Femoral, Left, to 4 YVETTE for 0:33 seconds. Inflation number: 4 The Shockwave IVL 6.0 X 80cm was reinflated across the Mid Superficial Femoral, Left, to 4 YVETTE for 0:34 seconds. Inflation number: 5 The Shockwave IVL 6.0 X 80cm was reinflated across the Mid Superficial Femoral, Left, to 4 YVETTE for 0:36 seconds. Inflation number: 1 The Shockwave IVL 6.0 X 80cm was reinflated across the Proximal Superficial Femoral, Left, to 4 YVETTE for 0:34 seconds. Sheath pulled back. Balloon advanced to ostial left common iliac. Inflation number: 1 The Shockwave IVL 6.0 X 80cm was reinflated across the Ostial Common Iliac, Left, to 4 YVETTE for 0:48 seconds. Inflation number: 2 The Shockwave IVL 6.0 X 80cm was reinflated across the Ostial Common Iliac, Left, to 4 YVETTE for 0:36 seconds. Inflation number: 3 The Shockwave IVL 6.0 X 80cm was reinflated across the Ostial Common Iliac, Left, to 4 YVETTE for 0:30 seconds. Sheath readvanced to common femoral. Shockwave balloon OTW. Left common femoral selected and arteriogram performed. DCB balloon in over wire to left mid SFA. Inflation number : 6 A BARD 5FR Lutinox [id number] drug coated balloon was prepped and advanced across the Mid Superficial Femoral, Left , then inflated to 7 YVETTE for 2:00 seconds. Inflation number: 7 The BARD 5FR Lutinox [id number] drug coated balloon was reinflated across the Mid Superficial Femoral, Left, to 7 YVETTE for 2:00 seconds. Inflation number: 2 The BARD 5FR Lutinox [id number] drug coated balloon was reinflated across the Proximal Superficial Femoral, Left, to 7 YVETTE for 2:02 seconds. Balloon out over wire. ACT drawn. Results 207 seconds. Therapeutic limits - pre-heparin administration 90-150 seconds and monitoring heparin during a vascular procedure >250 seconds. Left common femoral selected and arteriogram with runoff performed @ 10 mL/sec for a total of 30 mL. DSA imaging performed of mid SFA. Balloon inserted over the wire to the mid superficial femoral. Inflation number : 8 A AB ARMADA 35 OTW [id number] was prepped and advanced across the Mid Superficial Femoral, Left , then inflated to 6 YVETTE for 2:00 seconds. Inflation number: 3 The AB ARMADA 35 OTW [id number] was reinflated across the Distal Superficial Femoral, Left, to 6 YVETTE for 0:33 seconds. Inflation number: 4 The AB ARMADA 35 OTW [id number] was reinflated across the Distal Superficial Femoral, Left, to 6 YVETTE for 0:34 seconds. Balloon out over wire. Left common femoral selected and arteriogram with runoff performed @ 10 mL/sec for a total of 30 mL. Seeker in over wire parked in anterior tibial. Runthrough wire out. Glidewire in through seeker. Seeker out over glidewire. Sheath pulled back into abdominal aorta. DSA imaging of left common iliac. Sheath upsized to a 7 Fr. Stent inserted over the wire to the left common iliac. Stent slid off undeployed balloon, stent sits otw in the right iliac. Undeployed stent balloon out OTW. flexor sheath pulled back into right common iliac. Balloon inserted over the wire to the right common iliac in attempt to retrieve stent. Inflation number : 1 A AB ARMADA 35 OTW [id number] was prepped and advanced across the Proximal Common Iliac, Right , then inflated to 6 YVETTE for 1:01 seconds. Inflation number: 2 The AB ARMADA 35 OTW [id number] was reinflated across the Proximal Common Iliac, Right, to 7 YVETTE for 0:15 seconds. Right common iliac selected and arteriogram performed. Lidocaine 1% infiltrated to the left groin. Arterial access obtained with micropuncture set. UF catheter in over glidewire through left groin sheath. Glidewire out through UF catheter. Abdominal aortogram performed in AP @ 10 mL/sec for a total of 20 mL. Glidewire in through UF catheter. Glidewire out. Exchange wire in through UF catheter. UF catheter out over exchange wire. Balloon inserted over the wire to the stent in the right common iliac. Inflation number: 3 The AB ARMADA 35 OTW [id number] was reinflated across the Proximal Common Iliac, Right, to 4 YVETTE for 2:05 seconds. Balloon and 7fr flexor sheath out over the glidewire. 7fr 11cm sheath advanced over glidewire in right groin. Glidewire out of the sheath in the right groin. Runthrough wire in through sheath in right groin. Runthrough wire out. Glidewire in through sheath in right groin. UF catheter in over exchange wire through the left groin sheath. UF catheter out over exchange wire. 5 fr RIM catheter in over exchange wire through left groin sheath. Exchange wire out. Glidewire in through RIM catheter in the left groin. Glidewire out of right groin sheath. RIM catheter out OTW. Balloon advanced over glidewire in left groin to stent that remains in right common iliac. Glidewire in through sheath in right groin. Seeker in over the glidewire in right groin. Seeker out over the glidewire. Balloon out OTW in left groin. Balloon in over the glidewire in right groin to right common iliac. Balloon out. Sheath upsized to a 7 Fr. Right common iliac selected and arteriogram with runoff performed @ 10 mL/sec for a total of 20 mL. Side port of sheath attached to Normal Saline flush at KVO to maintain patency. Inflation number : 4 A AB ARMADA 35 OTW [id number] was prepped and advanced across the Proximal Common Iliac, Right , then inflated to 6 YVETTE for 0:21 seconds. Inflation number: 5 The AB ARMADA 35 OTW [id number] was reinflated across the Proximal Common Iliac, Right, to 6 YVETTE for 0:12 seconds. Inflation number: 6 The AB ARMADA 35 OTW [id number] was reinflated across the Proximal Common Iliac, Right, to 6 YVETTE for 0:13 seconds. Balloon out. Sheath upsized to a 7 Fr. Son Garcia RN, FIXTURE FABRICATOR REPAIRER in to scrub for RT Kelly(R). Sheeba Malin RN, FIXTURE FABRICATOR REPAIRER in to monitor for Toya Rodriguez RN. Inflation Number : 4 A Lifestream Covered Stent 8.0 X 37mm -Lot Number# [id number] was prepped and advanced across the Ostial Common Iliac, Left. The stent was deployed at 8 YVETTE for 0:49 seconds. Exp. . Inflation number: 5 The stent balloon was then re-inflated across the Ostial Common Iliac, Left to 8 YVETTE for 0:23 seconds. Balloon out. A 5Fr UF catheter in over wire through left groin. Wire out. Abdominal aortogram performed in AP @ 10 mL/sec for a total of 30 mL. UF catheter out over exchange wire. 7fr 45cm flexor sheath sheath exchanged for 7 fr 11cm sheath over glidewire. A Right femoral angiogram was performed to determine safe placement of closure device. ACT drawn. Results 232 seconds. Therapeutic limits - pre-heparin administration 90-150 seconds and monitoring heparin during a vascular procedure >250 seconds. Sheath(s) sutured into position with 2-0 silk and sterile 4x4's and Op-site applied over the site. No oozing or signs and symptoms of hematoma noted. A Suture was successful obtaining hemostatsis at the Left Femoral artery insertion site. A Suture was successful obtaining hemostatsis at the Right Femoral artery insertion site. Arterial sheath flushed and connected to tranducer and pressure bag with heparinized saline. Post Procedure: Pulses reassessed and unchanged. PERRLA. Strong, equal hand project coordinator bilaterally. No VTE prophylaxis required. Medication's Wasted: Nitro = 49.6 mg. Medication's Wasted: Heparin = 3000 unit. Medication's Wasted: Other = Fentanyl 50mcg. Total IV fluids: 600 mL. Post-op diagnosis: Severe PAD. Stent proximal common iliac. Lithotripsy and DCB to left SFA. Embolization of stent to right common iliac. Complications: None. Estimated blood loss: 5mL-10mL. Responsiveness - Normal response to verbal stimuli; alert and oriented, PERRLA. Airway - Unaffected, no intervention required; spontaneous ventilation. Circulation: W/N/L, pulses unchanged. Nausea/Vomiting: No. Procedure completed. Patient transferred by bed to 1st floor. Access Site Site: Right Femoral artery Sheath Size: 6 Fr Hemostasis Method: Suture Hemostasis Success: Successful Site: Left Femoral artery Sheath Size: 6 Fr Hemostasis Method: Suture Hemostasis Success: Successful Procedure Medications Start: 9:25 AM Stop: 9:25 AM Medication: Versed Amount: 1 mg Route: I.V. Start: 9:26 AM Stop: 9:26 AM Medication: Fentanyl Amount: 50 mcg Route: I.V. Start: 9:31 AM Stop: 9:31 AM Medication: Versed Amount: 1 mg Route: I.V. Start: 9:35 AM Stop: 9:35 AM Medication: Versed Amount: 1 mg Route: I.V. Start: 9:42 AM Stop: 9:42 AM Medication: Versed Amount: 1 mg Route: I.V. Start: 9:51 AM Stop: 9:51 AM Medication: Fentanyl Amount: 25 mcg Route: I.V. Start: 9:58 AM Stop: 9:58 AM Medication: Heparin Amount: 5000 units Route: I.V. Start: 9:57 AM Stop: 9:57 AM Medication: Fentanyl Amount: 25 mcg Route: I.V. Start: 10:01 AM Stop: 10:01 AM Medication: Versed Amount: 1 mg Route: I.V. Start: 10:09 AM Stop: 10:09 AM Medication: Versed Amount: 1 mg Route: I.V. Start: 10:09 AM Stop: 10:09 AM Medication: Fentanyl Amount: 25 mcg Route: I.V. Start: 10:16 AM Stop: 10:16 AM Medication: Heparin Amount: 2000 units Route: I.V. Start: 10:23 AM Stop: 10:23 AM Medication: Fentanyl Amount: 25 mcg Route: I.V. Start: 10:26 AM Stop: 10:26 AM Medication: Fentanyl Amount: 25 mcg Route: I.V. Start: 10:32 AM Stop: 10:32 AM Medication: Fentanyl Amount: 25 mcg Route: I.V. Start: 10:42 AM Stop: 10:42 AM Medication: Versed Amount: 1 mg Route: I.V. Start: 10:52 AM Stop: 10:52 AM Medication: Nitrogylcerin Amount: 400 mcg Route: I.A. Start: 10:53 AM Stop: 10:53 AM Medication: 0.9% Saline Amount: 250 ml Route: I.V. bolus Start: 10:59 AM Stop: 10:59 AM Medication: Heparin Amount: 5000 units Route: I.V. Start: 11:05 AM Stop: 11:05 AM Medication: Versed Amount: 1 mg Route: I.V. Start: 11:25 AM Stop: 11:25 AM Medication: Fentanyl Amount: 25 mcg Route: I.V. Start: 11:39 AM Stop: 11:39 AM Medication: Fentanyl Amount: 25 mcg Route: I.V. Start: 11:41 AM Stop: 11:41 AM Medication: Versed Amount: 1 mg Route: I.V. Start: 11:48 AM Stop: 11:48 AM Medication: Versed Amount: 1 mg Route: I.V. Start: 12:08 PM Stop: 12:08 PM Medication: Heparin Amount: 2000 units Route: I.V. Start: 12:15 PM Stop: 12:15 PM Medication: Versed Amount: 1 mg Route: I.V. Start: 12:25 PM Stop: 12:25 PM Medication: Versed Amount: 1 mg Route: I.V. Start: 1:09 PM Stop: 1:09 PM Medication: Plavix Amount: 300 mg Route: P.O. I, the attending physician, have reviewed and verified all procedure medications. Yes, all medications given per verbal order History/Risk Factors Hypertension: Yes Dyslipidemia: Yes Peripheral Arterial Disease (PAD): Yes Myocardial Infarction ([place]): No Obesity: No Renal Disease: No Tobacco Use: Current/Recent(w/in 1 year) Prior Interventions PCI: Yes CABG: No Valve Surgery: No Date of PCI: 10/22/2023 Report Signatures Finalized by Bebeto Rodriguez MD on 10/26/2024 06:50 PM
[2024-10-11] MEDS: diphenhydrAMINE 50 mg Capsule PO (07:45)
--- NOTE | 2024-10-11 07:55 | W.PM.OPSUD ---
Surgery/Procedure H&P Update DATE OF PROCEDURE: October 11, 2024 DATE H&P PERFORMED: 09/18/24 H&P UPDATE INFORMATION: I have reviewed H&P completed within last 30 days, I have examined patient prior to procedure and No changes to prior documentation CHANGES TO PREVIOUS DOCUMENTATION: Lifestyle limiting claudication despite of optimization of medicine PREOP DIAGNOSIS: Lifestyle limiting claudication/severe peripheral arterial disease by angio PRIMARY INDICATION FOR PROCEDURE: Lifestyle limiting claudication/severe peripheral arterial disease by angiogram PLANNED PROCEDURE: Operation Date: 10/11/24 08:30 Proposed Procedures p Peripheral Diagnostic - Periph Angio Unil(Not Applicable) - Bebeto Rodriguez MD PATIENT REASSESSED PRIOR TO SEDATION, WITH NO CHANGE NOTED: Yes PHYSICAL EXAM: alert, oriented x 3, clear to auscultation bilaterally, regular rate & rhythm and operative site marked OTHER PERTINENT EXAM FINDINGS: All risk-benefit and alternative for the procedure has been explained to the patient. Patient understand 2% risk of stroke major bleed, patient understand 5 to 6% risk of hematoma pseudoaneurysm urgent or emergent limb threatening vascular surgery worst-case scenario amputation of the leg. Patient understand 2% risk of contrast-induced nephropathy leading to temporary or permanent dialysis. Patient would like to proceed with a AIRWAY EVAL/ANESTHESIA PLAN: ASA II, Risks, benefits & alternatives of sedation and/or procedure discussed and Patient agrees to continue as planned
--- NOTE | 2024-10-11 13:17 | PM.PROC ---
Procedure Note: Date of procedure: 10/11/24 Pre-procedure diagnosis: Lifestyle limiting claudication/PAD Post-procedure diagnosis: same Procedure: Patient underwent peripheral angiogram for severe peripheral arterial disease significant high-grade calcified left proximal iliac and 100% occluded mid to distal SFA Patient was treated with lithotripsy and drug-coated balloon in the SFA lithotripsy and covered stent in the left iliac external angiographic result with good flow was noted. Both sheaths were retained in LV vent from left and right groins Plan: Pull out sheath when PTT is less than 45, bedrest 6-hour after pulling out the sheath IV fluid normal saline 100 mL/h Patient has been loaded with 300 mg of Plavix here in the Citizenship Instructor and aspirin. Plan to stop aspirin tomorrow continue with Plavix 75 mg and Xarelto 2.5 mg twice daily add Protonix 40 mg p.o. daily from today Complications: Embolization of iliac stent as it came off the balloon during process of deploying. We were able to retrieve the stent but until right iliac beyond that were not able to retrieve it therefore we have to deploy the stent in the right distal common iliac. Overall at the end bilateral angiogram showed good flow in the iliacs common femoral SFA on both sides Coding Level of Care Code Acute Code for Rose Fwelba
--- NOTE | 2024-10-11 13:56 | PC.NURSE ---
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 Upon arrival to the room, patient's right femoral sheath was leaking a lot of blood. Dr Rodriguez was called and he came and replaced the 7 tristanian sheath with an 8 tristanian and the bleeding stopped. Dr Rodriguez instructed nurse to missael him before sheath pull.
[2024-10-11] MEDS: HYDROcodone-acetaminophen 5-325 mg Tablet 1 TAB PO ×2 (15:15→21:31)
[2024-10-11 16:11] LABS: Partial Thromboplastin Time 77.5 SECONDS (23.9-36.7)
[2024-10-11 16:52] LABS: Partial Thromboplastin Time 35.4 SECONDS (23.9-36.7)
[2024-10-11] MEDS: fentaNYL 50 mcg/mL INJ 2mL IVP (17:25)
--- NOTE | 2024-10-11 20:48 | PC.NURSE ---
Dr. Rodriguez at bedside to assess patient. Patient c/o burning and cramping in legs. Patient BP also elevated please see vitals. Received orders for carvedilol, hydralazine and morphine, please see orders.
[2024-10-11] MEDS: carvedilol 3.125 mg Tablet PO (21:31)
[2024-10-12 00:17] VITALS: BP 149/80; PULSE 64; RESP 19; TEMP 36.8; O2SAT 97
--- NOTE | 2024-10-12 02:22 | PC.NURSE ---
Patient ambulating in arteaga, groin sites stable with no hematoma or bleeding. Patient endorses whole body soreness, at this time patient does not want anything for pain.
[2024-10-12 03:46] LABS: Basophils % 0.5 %; Eosinophils # 0.3 10^3/uL (0.0-0.8); Eosinophils % 3.3 %; Hematocrit 40.5 % (37-53); Mean Corpuscular HGB Conc 33.1 g/dL (30-55); Mean Corpuscular Hemoglobin 29.7 pg (27-33); Mean Corpuscular Volume 89.8 fl (82-101); Mean Platelet Volume 9.9 fL (7.4-10.4); Monocytes # 0.7 10^3/uL (0.2-0.9); Monocytes % 9.1 %; Neutrophils # 5.89 10^3/uL (1.8-7.7); Neutrophils % 73.7 %; Nucleated Red Blood Cells % 0 %; Platelet Count 212 10^3/cmm (157-399); Red Blood Count 4.51 10^6/uL (3.85-5.65); Red Cell Distribution Width 14.1 % (12.1-15.1); White Blood Count 7.99 10^3/uL (3.29-11.43)
[2024-10-12] MEDS: sodium chloride 0.9% 1,000 ML 100 ML IV (03:48)
[2024-10-12 03:49] VITALS: BP 152/73; PULSE 65; RESP 17; TEMP 37.1; O2SAT 96
[2024-10-12 04:10] LABS: Anion Gap 15.1 (5-19); Blood Urea Nitrogen 14 mg/dL (8-23); Calcium 8.4 mg/dL (8.5-10.5); Carbon Dioxide 22 mmol/L (22-29); Chloride 105 mmol/L (98-107); Creatinine Clr Calc Pharmacy 97.1394; Glomerular Filtration Rate 75.5 mL/min (90-130); Glucose 118 mg/dL (65-115); Osmolality Calculated 288 mOsm/kg (285-295); Potassium 4.1 mmol/L (3.5-5.1); Sodium 138 mmol/L (136-145)
[2024-10-12 06:14] VITALS: RESP 20; O2SAT 95
[2024-10-12] MEDS: morphine 4 mg/mL SDV 1 mL 2 MG IVP (06:14)
[2024-10-12 07:30] VITALS: BP 139/81; PULSE 95; RESP 21; TEMP 36.7; O2SAT 98
[2024-10-12] MEDS: HYDROcodone-acetaminophen 5-325 mg Tablet 1 TAB PO (07:42)
[2024-10-12] MEDS: carvedilol 3.125 mg Tablet PO (07:42)
[2024-10-12] MEDS: aspirin 81 mg EC Tablet PO (07:42)
[2024-10-12] MEDS: clopidogrel 75 mg Tablet PO (07:42)
[2024-10-12] MEDS: rivaroxaban 10 mg Tablet 2.5 MG PO (08:53)
[2024-10-12] MEDS: pantoprazole DR 40 mg Tablet PO (08:53)
--- NOTE | 2024-10-12 08:57 | PC.NURSE ---
Patient is really anxious to leave this morning stating, I really don't want to wait until noon. Bilateral groin dressing remain c,d,i without s/s of bleeding or hematoma formations observed. Patient does complain of reperfusion pain to bilateral legs. Informed UDAY Mccollum. ROCK MASON to see patient rick .
--- NOTE | 2024-10-12 12:11 | PC.NURSE ---
Patient discharged to home. Instruction provided regarding follow up needs, new medications with changes and site care instructions. Patient verbalized complete understanding. Denies pain or needs. Dressings to bilateral groin remain c,d,i without s/s of bleeding or hematoma formation observed. Patient ambulated with aide by site to private vehicle. No distress observed.
[2024-10-12 12:14] VITALS: BP 139/81; PULSE 78; RESP 18; O2SAT 94
--- NOTE | 2024-10-12 12:28 | P.DS_ITS ---
<Statement entered by Bebeto Rodriguez MD - 10/12/24 22:51> Patient was evaluated and cared for in conjunction with an advanced practice practitioner. I personally examined the patient and reviewed the chart and all pertinent data including imaging, telemetry, and laboratory results. I discussed the patient in detail with the advanced practice practitioner. Please see their note for complete H&P testing result and agreed upon plan of care for the patient. Discharge Providers Date of Admission: 10/11/24 13:11 Date of Discharge: October 12, 2024 Attending Provider at Admission: Bebeto Rodriguez MD Attending Provider at Discharge: Bebeto Rodriguez MD Consults: None Primary Care Provider: Matteo White MD Reason for Visit Reason for Visit: I73.9 Brief History: Severe PAD Hospital Course Hospital Course Patient came in due to severe lifestyle limiting claudication in the left lower extremity with severe PAD diagnosed by previous angiogram. He underwent peripheral angiogram for severe PAD with significant high-grade left proximal iliac and 100% occluded mid to distal SFA. Patient was treated with lithotripsy and drug-coated balloon to the SFA and a stent in the left external iliac with good flow noted. Both sheaths were retained in bilateral groins. Patient was loaded with 300 mg of Plavix in the [employer] as well as given aspirin. Aspirin was stopped and will continue with Plavix 75 mg Xarelto 2.5 mg twice daily with Protonix 40 mg p.o. daily. Embolization of the iliac stent occurred as it came off the balloon during process of deploying. We were able to retrieve the stent but until right iliac beyond that were not able to retrieve it therefore we had to deploy it in the right distal common iliac. Overall at the end bilateral angiogram showed good flow in the iliacs common femoral SFA on both sides. Patient had 2+ PT and DP bilaterally. Bilateral groins without evidence of hematoma soft nontender. Physical Exam Narrative: General: No apparent distress, healthy appearing, well nourished HENMT: normoceophalic Muskuloskeletal: Full ROM Respiratory: Normal respiratory effort, clear to auscultation bilaterally throughout all lung remy, no use of accessory muscles Cardio: No JVD, regular rate, regular rhythm, S1 S2 normal, no murmurs, peripheral pulses 2+ radial palpated bilaterally, 2+ femoral palpated bilaterally GI: Normal to inspection, nondistended Extremities: Full ROM, normal, normal capillary refill, no cyanosis or edema Neuro: Alert and oriented x4, no focal motor deficits Psych: Affect normal, denies suicidal ideation, mental status grossly normal Skin: bilateral groin sites clean dry intact no signs of hematoma present Discharge Data Studies Completed and Pending Pending at discharge Category Date Time 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 Routine Exams 10/11/24 07:30 Taken Laboratory Results WBC 7.99 10^3/uL (3.29-11.43) 10/12/24 03:21 RBC 4.51 10^6/uL (3.85-5.65) 10/12/24 03:21 Hgb 13.40 g/dL (11.27-16.99) 10/12/24 03:21 Hct 40.5 % (37-53) 10/12/24 03:21 MCV 89.8 fl (82-101) 10/12/24 03:21 MCH 29.7 pg (27-33) 10/12/24 03:21 MCHC 33.1 g/dL (30-55) 10/12/24 03:21 RDW 14.1 % (12.1-15.1) 10/12/24 03:21 Plt Count 212 10^3/cmm (157-399) 10/12/24 03:21 MPV 9.9 fL (7.4-10.4) 10/12/24 03:21 Neut % (Auto) 73.7 % 10/12/24 03:21 Lymph % (Auto) 13.0 % 10/12/24 03:21 Elliott % (Auto) 9.1 % 10/12/24 03:21 Eos % (Auto) 3.3 % 10/12/24 03:21 Baso % (Auto) 0.5 % 10/12/24 03:21 Neut # (Auto) 5.89 10^3/uL (1.8-7.7) 10/12/24 03:21 Lymph # (Auto) 1.0 10^3/uL (0.8-4.8) 10/12/24 03:21 Elliott # (Auto) 0.7 10^3/uL (0.2-0.9) 10/12/24 03:21 Eos # (Auto) 0.3 10^3/uL (0.0-0.8) 10/12/24 03:21 Baso # (Auto) 0.0 10^3/uL (0.0-0.1) 10/12/24 03:21 Nucleated RBC % (auto) 0 % 10/12/24 03:21 Nucleated RBCs # 0.0 /100WBC 10/12/24 03:21 APTT 35.4 SECONDS (23.9-36.7) D 10/11/24 16:30 Sodium 138 mmol/L (136-145) 10/12/24 03:21 Potassium 4.1 mmol/L (3.5-5.1) 10/12/24 03:21 Chloride 105 mmol/L (98-107) 10/12/24 03:21 Carbon Dioxide 22 mmol/L (22-29) 10/12/24 03:21 Anion Gap 15.1 (5-19) 10/12/24 03:21 BUN 14 mg/dL (8-23) 10/12/24 03:21 Creatinine 1.0 mg/dL (0.7-1.2) 10/12/24 03:21 GFR Calculation 75.5 mL/min (90-130) L 10/12/24 03:21 Glucose 118 mg/dL (65-115) H 10/12/24 03:21 Calculated Osmolality 288 mOsm/kg (285-295) 10/12/24 03:21 Calcium 8.4 mg/dL (8.5-10.5) L 10/12/24 03:21 Procedures Performed Date of procedure: 10/11/24 Pre-procedure diagnosis: Lifestyle limiting claudication/PAD Post-procedure diagnosis: same Procedure: Patient underwent peripheral angiogram for severe peripheral arterial disease significant high-grade calcified left proximal iliac and 100% occluded mid to distal SFA Patient was treated with lithotripsy and drug-coated balloon in the SFA lithotripsy and covered stent in the left iliac external angiographic result with good flow was noted. Both sheaths were retained in LV vent from left and right groins Plan: Pull out sheath when PTT is less than 45, bedrest 6-hour after pulling out the sheath IV fluid normal saline 100 mL/h Patient has been loaded with 300 mg of Plavix here in the [employer] and aspirin. Plan to stop aspirin tomorrow continue with Plavix 75 mg and Xarelto 2.5 mg twice daily add Protonix 40 mg p.o. daily from today Complications: Embolization of iliac stent as it came off the balloon during process of deploying. We were able to retrieve the stent but until right iliac beyond that were not able to retrieve it therefore we have to deploy the stent in the right distal common iliac. Overall at the end bilateral angiogram showed good flow in the iliacs common femoral SFA on both sides Vitals Last Vital Signs Temp 98.1 F 10/12/24 07:30 Pulse 78 10/12/24 12:14 Resp 18 10/12/24 12:14 BP 139/81 10/12/24 12:14 Pulse Ox 94 10/12/24 12:14 O2 Del Method Room Air 10/12/24 07:30 Discharge Plan Discharge Patient Disposition: Home Condition: Stable Prescriptions: New carvedilol 3.125 mg Tablet 3.125 mg PO BID Qty: 60 0RF pantoprazole 40 mg Tablet,Delayed Release (Dr/Ec) 40 mg PO DAILY Qty: 30 0RF Xarelto 2.5 mg tablet 2.5 mg PO BID Qty: 60 0RF Continued tizanidine 4 mg tablet 4 mg PO BID PRN (Reason: muscle spasticity) Qty: 60 3RF cilostazol 50 mg tablet 50 mg PO BID Qty: 180 3RF clopidogrel 75 mg tablet 75 mg PO DAILY Qty: 90 3RF nitroglycerin 0.4 mg tablet, sublingual 0.4 mg sublingual Q5M PRN (Reason: chest pain) Qty: 30 3RF Rx Instructions: do not exceed 3 doses per episode hydrocodone-acetaminophen 5-325 mg tablet 1 tab PO Q4H 7 Days Qty: 42 0RF multivitamin Tablet 1 tab PO DAILY acetaminophen 500 mg Tablet 1,000 - 1,500 mg PO Q6H PRN (Reason: Pain) Tumeric Complex 1 cap PO DAILY Discontinued aspirin 81 mg tablet,delayed release (DR/EC) 81 mg PO DAILY Qty: 90 3RF Discharge Orders: Discharge Order (Routine); Ordered 10/12/24 Ordered By: Veda Garcia Referrals: Makayla Jaramillo FNP [Nurse Practitioner] - 10/25/24 2:00 pm Discharge Diet: Advance as tolerated and Cardiac Discharge Activity: Limit activity as instructed Patient Instructions: Carvedilol (By mouth) (Coreg, Coreg CR, Hypertenevide- 12.5), Pantoprazole (By mouth) (Protonix), Rivaroxaban (By mouth), Peripheral Vascular Stent Placement (DC), Peripheral Vascular Angioplasty (DC), Opioid Safety Activity Restrictions/Additional Instructions: Discussed with patient no heavy lifting more than a gallon of milk as well as going up or down steps for 3 days. No driving for 3 days. Monitor for and report signs or symptoms of bleeding. Monitor for and report s/s of infection such as fever 101 or greater, swelling, redness or pain to the groin. Plan of Treatment: Plan of treatment is continue Plavix and Xarelto 2.5 mg twice daily. Will follow-up in the clinic in 1 week. Will add Protonix to prevent GI bleed. Will need to be assessed in the clinic in approximately 1 week with reevaluation of creatinine and H&H to verify patient is not developing any kind of anemia. Discharge Attestations Time Spent in Discharge Care*: greater than 30 min Quality Metrics Clinical Quality Measures [ No reported AMI, CVA or VTE this stay] Coding Level of Care Code Acute Code for Chg Fwd
== END 2024-10-12 12:15 | disposition home or self-care (01) ==
LOC: CSU 13:39
PROVIDERS: Admitting Provider Internal Medicine Cardiovascular Disease; PCP Family Medicine; Visit Provider Internal Medicine Cardiovascular Disease
DX: I70.222 Atherosclerosis of native arteries of extremities with rest pain, left leg (principal); E78.5 Hyperlipidemia, unspecified; I10 Essential (primary) hypertension; F17.200 Nicotine dependence, unspecified, uncomplicated; Z82.49 Family history of ischemic heart disease and other diseases of the circulatory system; Z79.82 Long term (current) use of aspirin
CPT/HCPCS: 36415; 75625; 75710; 80048; 85025; 85347; 85730; 96374; 96376; 99152; 99153; C1725; C1753; C1769; C1874; C1887; C1894; C2623; C9765; G0378; J1200; J1644; J2250; J2270; J3010; J3490; J7030; J9999; Q0163; Q9967

== ENCOUNTER → 2024-10-25 08:28 | Outpatient (BNVA) | payer MEDICARE, SELFPAY | PROVIDERS: PCP Family Medicine; Visit Provider Podiatrist Foot & Ankle Surgery | DX: I73.9 Peripheral vascular disease, unspecified (principal); L60.3 Nail dystrophy; L84 Corns and callosities; M20.41 Other hammer toe(s) (acquired), right foot | CPT/HCPCS: 99214 ==

== ENCOUNTER 2024-11-06 05:56 | Day surgery (SDC) | payer MEDICARE, SELFPAY ==
--- NOTE | 2024-11-02 10:25 | PC.NURSE ---
Pt. to continue plavix and xarelto and not hold for surgery on wednesday.
[2024-11-06] VITALS (7 sets, daily range): BP systolic 126–162; BP diastolic 63–96; PULSE 62–74; RESP 18–20; TEMP 36.2–36.8; O2SAT 95–100; BMI 26.9
--- NOTE | 2024-11-06 | XR_ITS ---
WS: [id number] XR toe RT min 2V 03156 REASON FOR EXAM: Right foot third metatarsal distal metatarsal osteotomy FINDINGS: Osteotomy of the distal metadiaphysis of the third metatarsal. Normal alignment. XR/XR toe RT min 2V 92483 IMPRESSION: Third metatarsal osteotomy as above.
[2024-11-06] MEDS: acetaminophen 1,000 MG/100 ML PIGGYBACK 400 MG IV (06:29)
[2024-11-06] MEDS: sodium chloride 0.9% 1,000 ML 30 ML IV (06:37)
--- NOTE | 2024-11-06 06:41 | ANES.PREANE2 ---
Pre-Anesthetic Assessment Height/Weight: Height 6 ft 3 in Weight 215 lb Temp Pulse Resp BP Pulse Ox O2 Del Method 98.2 F 62 18 162/90 100 Room Air 11/06/24 06:18 11/06/24 06:18 11/06/24 06:18 11/06/24 06:18 11/06/24 06:18 11/06/24 06:18 Preop Diagnosis: Right foot metatarsalgia Operation Date: 11/06/24 07:00 Proposed Procedures p Metatarsal Osteotomy(Right) - Aj Appiah, DPM Was Beta Claudette taken within 24 hours: Yes Was Clonidine taken within 24 hours: N/A Last intake: Intake Last Liquid Date 11/06/24 Last Liquid Time 04:30 Last Solid Date 11/05/24 Last Solid Time 19:30 Social Tobacco and No alcohol Exam alert, oriented x 3, clear to auscultation bilaterally and regular rate & rhythm Airway Submandibular: within normal limits Cervical ROM: within normal limits Mallampati: Class II Comments: Comments: Edentulous Anesthetic Plan ASA status: 3 Anesthesia: MAC Other: No prior issues with anesthesia NPO since yesterday evening Patient recently had peripheral stents placed in lower extremities in October. On chronic Plavix. Taken today Patient also has CAD history s/p stent x 2 in November 2023 Recent labs reviewed and acceptable for procedure EKG showing sinus rhythm with PVCs Current everyday smoker Plan for MAC anesthesia with local via surgeon Medications/Allergies Home Medications ?Medication ?Instructions ?Recorded ?Confirmed ?Last Taken ?Type acetaminophen 500 mg tablet 1,000 - 1,500 mg PO Q6H PRN Pain 10/21/23 11/02/24 10/21/23 03:30 History multivitamin 1 tab PO DAILY 10/21/23 11/02/24 10/11/24 05:30 History clopidogrel 75 mg tablet 75 mg PO DAILY #90 tabs 11/11/23 11/02/24 11/06/24 04:30 Rx nitroglycerin 0.4 mg sublingual 0.4 mg sublingual Q5M PRN chest 11/24/23 11/02/24 Unknown Rx tablet pain #30 tabs Tumeric Complex 1 cap PO DAILY 06/03/24 10/25/24 10/11/24 05:30 History tizanidine 4 mg tablet 4 mg PO BID PRN muscle spasticity 09/28/24 10/25/24 Unknown Rx #60 tabs carvedilol 3.125 mg tablet 3.125 mg PO BID #60 tabs 10/12/24 11/02/24 11/06/24 04:30 Rx rivaroxaban 2.5 mg tablet (Xarelto) 2.5 mg PO BID #180 tabs 10/25/24 11/02/24 11/06/24 04:30 Rx Allergies Allergy/AdvReac Type Severity Reaction Status Date / Time amlodipine Allergy ADR-Chest Verified 11/06/24 06:08 Pain lisinopril AdvReac Severe ADR-Cough Verified 11/06/24 06:08 Current Medications Generic Name Dose Route Start Last Admin Trade Name Freq PRN Reason Stop Dose Admin Sodium Chloride 1,000 mls @ 30 mls/hr 11/06/24 06:15 11/06/24 06:37 Sodium Chloride 0.9% IV 11/07/24 06:14 30 mls/hr .Q24H NEFTALI Administration PFSH Anesthesia Medical History (Updated 10/27/24 @ 08:32 by Aj Appiah DPM) Intervertebral disc disorders with radiculopathy, 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 Yana Keene pain management. Thoracic spinal cord stimulator placement (08/13/2009). Malfunction of spinal cord stimulator Family History Father Cancer Mother Heart disease Hypertension Social History Smoking and tobacco/nicotine status: current every day tobacco/nicotine user Alcohol intake: never Substance/Drug Use: never Household members: spouse Marital status: Current occupational status: retired Data Anesthesia Cardiac Studies: Echocardiogram 10/21/23
--- NOTE | 2024-11-06 06:51 | P.HPUD_ITS ---
Surgery/Procedure H&P Update DATE OF PROCEDURE: November 06, 2024 DATE H&P PERFORMED: 10/25/24 H&P UPDATE INFORMATION: I have reviewed H&P completed within last 30 days, I have examined patient prior to procedure, No changes to prior documentation, H&P is in [facility] EMR on date indicated and Risks and benefits of the procedure reviewed PREOP DIAGNOSIS: Right foot metatarsalgia PLANNED PROCEDURE: Operation Date: 11/06/24 07:00 Proposed Procedures p Metatarsal Osteotomy(Right) - Aj Appiah DPM
[2024-11-06] MEDS: ceFAZolin 2,000 mg SDV 2000 MG IVP (07:08)
[2024-11-06] MEDS: BUPivacaine 0.5% INJ 30 mL INJECTION (07:32)
--- NOTE | 2024-11-06 07:36 | P.BOP_ITS ---
Date of procedure: 11/06/2024 Surgeon name: Laura PattenPLili Business Specialist(s) name(s): Steven Procedure(s) performed: Right foot third metatarsal distal metatarsal osteotomy Description of findings: Plantarflexed third metatarsal head Estimated blood loss: 2 cc Tourniquet time: 5 minutes Specimen(s) removed: None Post-operative diagnosis: Hammertoe right foot/metatarsalgia
--- NOTE | 2024-11-06 07:37 | P.OP_ITS ---
Operative Report Date of procedure: November 06, 2024 Surgeon: Aj Appiah DPM Procedure: Date of procedure: 11/06/24 Pre-op diagnosis: Metatarsalgia/hammertoe right foot Post-op diagnosis: same Post-op findings: plantarflexed right 3rd metatarsal head Procedure done: Right foot 3rd metatarsal distal ostetotomy CPT 57600 Implants: none Specimens removed: none Surgeon: Dr. Aj Appiah DPM Brush Polisher: Steven Estimated blood loss: 2cc Tourniquet time: 5 minutes Complications: none Patient is a 64-year-old male that has a history of right foot hammertoe and metatarsalgia. The patient has had the aforementioned chief complaint for some time. Conservative treatment measures have been attempted and the patient has opted for surgical intervention at this time. A lengthy discussion regarding the procedure, including risks and complications has been had with the patient and is noted in the recent clinic note. Written and verbal consent have been obtained. All patient questions have been answered to the patient?s satisfaction. No written or verbal guarantees have been given or implied. The patient has been NPO since midnight. The history has been reviewed and the history and physical is current. The signed consent was confirmed and placed in the patient chart. Patient imaging has been reviewed and is consistent with the diagnosis. Under mild sedation, the patient was brought into the operating room and placed on the table in the supine position. IV antibiotics were given by the anesthesia team as preoperative surgical prophylaxis. MAC sedation was then performed by the anesthesiateam. A local field block was performed using 0.5% Marcaine plain. A pneumatic tourniquet was then placed about the right ankle. The operative extremity was then prepped and draped in the usual fashion. The extremity was then elevated and exsanguinated before the tourniquet was inflated to 250 mmHg. After inflation, the following procedure was then performed. Attention was directed to the right foot. #15 blade was used to make a 1 cm incision overlying the third metatarsal. Blunt dissection was carried down to the level of the metatarsal shaft using a mosquito hemostat. Both medial and lateral aspects of the metatarsal were dissected free from soft tissue. Next a sagittal bone saw was inserted into the incision and a transverse osteotomy through the third metatarsal neck was made. Third metatarsal head was noted to sit in a more superior position alleviating plantar loading pressures. This was confirmed with C-arm fluoroscopy. The site was irrigated with copious amounts of sterile saline before attention was directed to closure. Incision was closed with 4-0 nylon. Incision was dressed with Xeroform, 4 x 4 gauze, Kerlix, Boaz. Patient was placed in a cam boot. The patient tolerated the procedure and anesthesia well and without complication. The patient was transported from the operating room to the recovery room with vital signs stable and vascular status intact to all digits of the right foot. The patient was given both written and verbal instructions to remain weightbearing as tolerated in cam boot to the operative extremity, to keep dressings/splint clean, dry and intact and to take pain medication as directed. The patient will follow-up in the outpatient setting at their scheduled appointment. The patient was discharged with my personal number and was instructed to call if any questions or issues should arise. They were discharged home once anesthesia criteria was met.
--- NOTE | 2024-11-06 08:19 | ANE.PACU2 ---
Inpatient post-anesthesia follow up: Airway intact: Yes Vital signs: Temperature 97.9 F Pulse Rate 68 Respiratory Rate 18 Blood Pressure 156/96 Pulse Oximetry 98 Oxygen Delivery Me thod Room Air Oxygen Flow Rate 8 Fraction of Inspir ed Oxygen Hydration adequate: Yes Nausea and vomiting: No Pain level: 1 Mental status: Baseline
== END 2024-11-06 08:19 | disposition home or self-care (01) ==
PROVIDERS: PCP Family Medicine; Visit Provider Podiatrist Foot & Ankle Surgery
PROC: (CPT 28308; principal; 2024-11-06 07:00)
DX: M77.41 Metatarsalgia, right foot (principal); M20.41 Other hammer toe(s) (acquired), right foot; I25.10 Atherosclerotic heart disease of native coronary artery without angina pectoris; Z95.5 Presence of coronary angioplasty implant and graft; Z79.899 Other long term (current) drug therapy; Z79.02 Long term (current) use of antithrombotics/antiplatelets; Z79.01 Long term (current) use of anticoagulants; Z88.8 Allergy status to other drugs, medicaments and biological substances; F17.200 Nicotine dependence, unspecified, uncomplicated
CPT/HCPCS: 28308; 73660; 76000; J0131; J0690; J2704; J3010; J3490; J7030

== ENCOUNTER → 2024-11-20 14:56 | Outpatient (BNVA) | payer MEDICARE, SELFPAY | PROVIDERS: PCP Family Medicine; Visit Provider Podiatrist Foot & Ankle Surgery | DX: M20.41 Other hammer toe(s) (acquired), right foot (principal); I73.9 Peripheral vascular disease, unspecified; L60.3 Nail dystrophy; L84 Corns and callosities | CPT/HCPCS: 73630; 99024 ==

== ENCOUNTER → 2024-11-21 13:40 | Outpatient (BNVA) | payer MEDICARE, SELFPAY | PROVIDERS: PCP Family Medicine; Visit Provider Orthopaedic Surgery | DX: M48.062 Spinal stenosis, lumbar region with neurogenic claudication (principal) | CPT/HCPCS: 99213 ==

== ENCOUNTER → 2024-12-21 11:23 | Outpatient (BNVA) | payer MEDICARE, SELFPAY | PROVIDERS: PCP Family Medicine; Visit Provider Podiatrist Foot & Ankle Surgery | DX: Q82.8 Other specified congenital malformations of skin (principal); I73.9 Peripheral vascular disease, unspecified; L60.3 Nail dystrophy | CPT/HCPCS: 17110; 99213 ==

== ENCOUNTER → 2024-12-28 10:30 | Outpatient (BNVA) | payer MEDICARE, SELFPAY | PROVIDERS: PCP Family Medicine; Visit Provider Nurse Practitioner Family | DX: M48.062 Spinal stenosis, lumbar region with neurogenic claudication (principal); M47.816 Spondylosis without myelopathy or radiculopathy, lumbar region; T85.192S Other mechanical complication of implanted electronic neurostimulator of spinal cord electrode (lead), sequela; M51.16 Intervertebral disc disorders with radiculopathy, lumbar region | CPT/HCPCS: 99214 ==

== ENCOUNTER → 2025-02-19 15:04 | Outpatient (BNVA) | payer MEDICARE, SELFPAY | PROVIDERS: PCP Family Medicine; Visit Provider Nurse Practitioner Family | DX: M48.062 Spinal stenosis, lumbar region with neurogenic claudication (principal); M47.816 Spondylosis without myelopathy or radiculopathy, lumbar region; T85.192S Other mechanical complication of implanted electronic neurostimulator of spinal cord electrode (lead), sequela; M51.16 Intervertebral disc disorders with radiculopathy, lumbar region; F17.200 Nicotine dependence, unspecified, uncomplicated | CPT/HCPCS: 99214 ==

== ENCOUNTER → 2025-02-28 13:50 | Outpatient (BNVA) | payer MEDICARE, SELFPAY | PROVIDERS: PCP Family Medicine; Visit Provider Podiatrist Foot & Ankle Surgery | DX: Q82.8 Other specified congenital malformations of skin (principal); I73.9 Peripheral vascular disease, unspecified; L60.3 Nail dystrophy | CPT/HCPCS: 17110; 99214 ==

== ENCOUNTER 2025-04-09 05:44 | Day surgery (SDC) | payer MEDICARE, SELFPAY ==
[2025-04-09] VITALS (7 sets, daily range): BP systolic 142–176; BP diastolic 69–95; PULSE 55–76; RESP 12–18; TEMP 36.1–36.8; O2SAT 94–98; BMI 28.1
--- NOTE | 2025-04-09 06:06 | ANES.PREANE2 ---
Pre-Anesthetic Assessment Height/Weight: Height 6 ft 3 in Preop Diagnosis: Left foot metatarsalgia Operation Date: 04/09/25 07:00 Proposed Procedures p Left foot third metatarsal distal metatarsal osteotomy(Left) - Aj Appiah DPM Was Beta Claudette taken within 24 hours: Yes Was Clonidine taken within 24 hours: N/A Social Tobacco and No alcohol Exam alert, oriented x 3, clear to auscultation bilaterally and regular rate & rhythm Airway Submandibular: within normal limits Cervical ROM: within normal limits Mallampati: Class II Comments: Comments: Edentulous Anesthetic Plan ASA status: 3 Anesthesia: MAC Other: No prior issues with anesthesia NPO since yesterday evening Patient had similar procedure with us in November and did well Patient recently had peripheral stents placed in lower extremities in October. On chronic Plavix. Taken today Patient also has CAD history s/p stent x 2 in November 2023 Recent labs reviewed and acceptable for procedure EKG showing sinus rhythm with PVCs Current everyday smoker Plan for MAC anesthesia with local via surgeon Medications/Allergies Home Medications ?Medication ?Instructions ?Recorded ?Confirmed ?Last Taken ?Type acetaminophen 500 mg tablet 1,000 - 1,500 mg PO Q6H PRN Pain 10/21/23 04/05/25 10/21/23 03:30 History multivitamin 1 tab PO DAILY 10/21/23 04/05/25 04/08/25 History nitroglycerin 0.4 mg sublingual 0.4 mg sublingual Q5M PRN chest 11/24/23 04/05/25 Unknown Rx tablet pain #30 tabs Tumeric Complex 1 cap PO DAILY 06/03/24 04/05/25 04/08/25 History tizanidine 4 mg tablet 4 mg PO BID PRN muscle spasticity 02/19/25 04/05/25 04/08/25 Rx #60 tabs rivaroxaban 2.5 mg tablet (Xarelto) 2.5 mg PO BID 02/28/25 04/05/25 04/08/25 History carvedilol 3.125 mg tablet 3.125 mg PO BID 04/05/25 04/05/25 04/09/25 04:30 History Allergies Allergy/AdvReac Type Severity Reaction Status Date / Time amlodipine Allergy ADR-Chest Verified 02/28/25 14:05 Pain lisinopril AdvReac Severe ADR-Cough Verified 02/28/25 14:05 [facility] Anesthesia Medical History Intervertebral disc disorders with radiculopathy, 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 Yana Arrington [facility] pain management. Thoracic spinal cord stimulator placement (08/13/2009). Malfunction of spinal cord stimulator Family History Father Cancer Mother Heart disease Hypertension Social History Smoking and tobacco/nicotine status: unknown if used tobacco/nicotine Alcohol intake: never Substance/Drug Use: never Household members: spouse Marital status: Current occupational status: retired Data Anesthesia Cardiac Studies: Echocardiogram 10/21/23
--- NOTE | 2025-04-09 06:49 | W.PM.OPSFHP ---
Same Day Surgery H&P Indication for Procedure/HPI DATE OF PROCEDURE: April 09, 2025 CHIEF COMPLAINT/INDICATIONFOR SURGICAL PROCEDURE: Left foot metatarsalgia PREOP DIAGNOSIS: Left foot metatarsalgia PLANNED PROCEDURE: Operation Date: 04/09/25 07:00 Proposed Procedures p Left foot third metatarsal distal metatarsal osteotomy(Left) - Aj Appiah DPM Medications/Allergies* Home Medications ?Medication ?Instructions ?Recorded ?Confirmed ?Type acetaminophen 500 mg tablet 1,000 - 1,500 mg PO Q6H PRN Pain 10/21/23 04/05/25 History multivitamin 1 tab PO DAILY 10/21/23 04/05/25 History Tumeric Complex 1 cap PO DAILY 06/03/24 04/05/25 History rivaroxaban 2.5 mg tablet (Xarelto) 2.5 mg PO BID 02/28/25 04/05/25 History carvedilol 3.125 mg tablet 3.125 mg PO BID 04/05/25 04/05/25 History Allergies/Adverse Reactions Allergy/AdvReac Type Severity Reaction Status Date / Time amlodipine Allergy ADR-Chest Verified 02/28/25 14:05 Pain lisinopril AdvReac Severe ADR-Cough Verified 02/28/25 14:05 Current Medications: Generic Name Dose Route Start Last Admin Trade Name Freq PRN Reason Stop Dose Admin Sodium Chloride 1,000 mls @ 30 mls/hr 04/09/25 06:00 04/09/25 06:13 Sodium Chloride 0.9% IV 04/10/25 05:59 30 mls/hr .Q24H NEFTALI Administration Pertinent History/Comorbid Conditions* Medical History (Updated 10/27/24 @ 08:32 by Aj Appiah DPM) Intervertebral disc disorders with radiculopathy, 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 Yana Keene pain management. Thoracic spinal cord stimulator placement (08/13/2009). Malfunction of spinal cord stimulator Family History (Updated 10/13/19 @ 14:05 by Sarah Beth Finley LPN) Heart disease Mother Cancer Father Hypertension Mother Social History Smoking and tobacco/nicotine status: unknown if used tobacco/nicotine Alcohol intake: never Substance/Drug Use: never Household members: spouse Marital status: Current occupational status: retired Pertinent Exam Findings alert, oriented x 3, clear to auscultation bilaterally, regular rate & rhythm, operative site marked and procedure specific exam findings GENERAL: A&O x 3 VASCULAR: DP/PT pulses palpable 2/4 with CFT intact, <3seconds to distal digits DERMATOLOGICAL: Skin turgor and temperature is within normal limits. No open wounds or skin lesions noted. Nails are well manicured and normotrophic. No interdigital maceration noted. MUSCULOSKELETAL: pain with palpation of plantar left 3rd metatarsal head NEUROLOGICAL: Neurological sensation to the affected foot and ankle is present through L4-S1 dermatomes with no hyper/hypoesthesias, negative Tinel or Valleix's sign Recommendations Surgery/Procedure today Coding Level of Care Code Acute Code for Jtg Fwd
[2025-04-09] MEDS: ceFAZolin 2,000 mg SDV 2000 MG IVP (07:03)
[2025-04-09] MEDS: BUPivacaine 0.5% INJ 30 mL INJECTION (07:26)
--- NOTE | 2025-04-09 07:38 | PM.OP ---
Operative Report Date of procedure: April 09, 2025 Surgeon: Aj Appiah DPM Procedure: Date of procedure: 04/09/2025 Pre-op diagnosis: Left left foot metatarsalgia Post-op diagnosis: Same Post-op findings: Plantarflexed left foot third metatarsal with underlying porokeratosis Procedure done: Left foot third metatarsal distal metatarsal osteotomy CPT 84797 Implants: None Specimens removed: None Surgeon: Dr. Aj Appiah DPM [place] Supervisor: Abrahan Estimated blood loss: 2 cc Tourniquet time: No tourniquet used Complications: None Patient is a 65-year-old male that has a history of left foot metatarsalgia. The patient has had the aforementioned chief complaint for some time. Conservative treatment measures have been attempted and the patient has opted for surgical intervention at this time. A lengthy discussion regarding the procedure, including risks and complications has been had with the patient and is noted in the recent clinic note. Written and verbal consent have been obtained. All patient questions have been answered to the patient?s satisfaction. No written or verbal guarantees have been given or implied. The patient has been NPO since midnight. The history has been reviewed and the history and physical is current. The signed consent was confirmed and placed in the patient chart. Patient imaging has been reviewed and is consistent with the diagnosis. Under mild sedation, the patient was brought into the operating room and placed on the table in the supine position. IV antibiotics were given by the anesthesia team as preoperative surgical prophylaxis. MAC sedation was then performed by the anesthesiateam. Local field block was performed using 0.5% Marcaine plain. A pneumatic tourniquet was then placed about the left ankle. The operative extremity was then prepped and draped in the usual fashion. After prep, the following procedure was then performed. Attention was directed to the left foot where a #15 blade was used to make a centimeter stab incision to the lateral aspect of the third metatarsal at the level of the metatarsal neck. This was confirmed on C-arm imaging. Blunt dissection was carried down through subcutaneous superficial fascia to the level of the third metatarsal neck. Soft tissue on the dorsal and plantar aspect of the third metatarsal was freed up using a mosquito hemostat. Next a sagittal bone saw was inserted into the incision and an osteotomy was made through the third metatarsal neck. The metatarsal head was then translated into a more dorsal position. Site was irrigated with sterile saline for attention was directed to closure. Incision was closed with 4-0 nylon in horizontal mattress fashion. Hemostasis was achieved. Incision was dressed with Xeroform, 4 x 4 gauze, Kerlix, Boaz. The patient tolerated the procedure and anesthesia well and without complication. The patient was transported from the operating room to the recovery room with vital signs stable and vascular status intact to all digits of the left foot. The patient was given both written and verbal instructions to remain weightbearing as tolerated in postop shoe to the operative extremity, to keep dressings/splint clean, dry and intact and to take pain medication as directed. The patient will follow-up in the outpatient setting at their scheduled appointment. The patient was discharged with my personal number and was instructed to call if any questions or issues should arise. They were discharged home once anesthesia criteria was met.
[2025-04-09] MEDS: HYDROcodone-acetaminophen 5-325 mg Tablet 1 TAB PO (08:04)
--- NOTE | 2025-04-09 08:31 | ANE.PACU2 ---
Inpatient post-anesthesia follow up: Airway intact: Yes Vital signs: Temperature 97 F Pulse Rate 55 Respiratory Rate 18 Blood Pressure 164/86 Pulse Oximetry 95 Oxygen Delivery Me thod Room Air Oxygen Flow Rate Fraction of Inspir ed Oxygen Hydration adequate: Yes Nausea and vomiting: No Pain level: 1 Mental status: Baseline
== END 2025-04-09 08:31 | disposition home or self-care (01) ==
PROVIDERS: PCP Family Medicine; Visit Provider Podiatrist Foot & Ankle Surgery
PROC: (CPT 28308; principal; 2025-04-09 07:00)
DX: M77.42 Metatarsalgia, left foot (principal); I25.10 Atherosclerotic heart disease of native coronary artery without angina pectoris; F17.200 Nicotine dependence, unspecified, uncomplicated
CPT/HCPCS: 28308; 73630; 76000; J0690; J2704; J3010; J3490; J7030; J9999

== ENCOUNTER → 2025-04-16 15:06 | Outpatient (BNVA) | payer MEDICARE, SELFPAY | PROVIDERS: PCP Family Medicine; Visit Provider Podiatrist Foot & Ankle Surgery | DX: Q82.8 Other specified congenital malformations of skin (principal); I73.9 Peripheral vascular disease, unspecified; L60.3 Nail dystrophy | CPT/HCPCS: 99024 ==

== ENCOUNTER → 2025-04-23 13:49 | Outpatient (BNVA) | payer MEDICARE, SELFPAY | PROVIDERS: PCP Family Medicine; Visit Provider Podiatrist Foot & Ankle Surgery | DX: Z98.890 Other specified postprocedural states (principal); Q82.8 Other specified congenital malformations of skin; I73.9 Peripheral vascular disease, unspecified; L60.3 Nail dystrophy | CPT/HCPCS: 73630; 99024 ==

== ENCOUNTER → 2025-05-02 14:55 | Outpatient (BNVA) | payer MEDICARE, SELFPAY | PROVIDERS: PCP Family Medicine; Visit Provider Internal Medicine Cardiovascular Disease | DX: I73.9 Peripheral vascular disease, unspecified (principal); I10 Essential (primary) hypertension; E78.5 Hyperlipidemia, unspecified | CPT/HCPCS: 99214 ==

== ENCOUNTER → 2025-05-21 14:02 | Outpatient (BNVA) | payer MEDICARE, SELFPAY | PROVIDERS: PCP Family Medicine; Visit Provider Podiatrist Foot & Ankle Surgery | DX: Z98.890 Other specified postprocedural states (principal); Q82.8 Other specified congenital malformations of skin; I73.9 Peripheral vascular disease, unspecified; L60.3 Nail dystrophy | CPT/HCPCS: 73630; 99024 ==